=== PATIENT | male | born 1925 | race Caucasian/White ===

== ENCOUNTER → 2016-08-24 | Outpatient (CLI) | payer MEDICARE, BC ==
[~2016-08-24] MED LIST: ASPI1TAB91 PO; ASPI81 PO; CIPR250T52 PO; CIPR500T2 PO; CIPR500T4 PO; DIATRIZOATE MEGLUM/DIATRIZOATE SOD 120 ML BTL (for RAD DIAG) RECTAL ONE; FERR324T4 PO; FLUT1INH INH; IPRASOL INH; METO25 PO; METO25TA3 PO; PRIN5TAB PO; REME15TA PO; TAB-TAB; ZOCO40TA PO
--- NOTE | 2016-08-24 16:17 | RADRPT ---
EXAM DATE/TIME: 08/24/2016 14:16 [facility] COMPARISON: CHEST PA & LAT, April 28, 2016, 21:46. INDICATIONS : Fecal impaction FLUORO TIME: 1.9 minutes IMAGE COUNT: 4 CONTRAST: 1. [facility] MEDICAL HISTORY : Carcinoma, bladder. SURGICAL HISTORY : CABG. urostomy ENCOUNTER: Initial ACUITY: 1 day PAIN SCORE: 0/10 LOCATION: Bilateral abdomen FINDINGS: Preliminary film demonstrates significant stool burden seen throughout the entire colon and rectum. Under fluoroscopic guidance a Gastrografin enema was performed with free flow of contrast in the rect um and within the descending colon. Significant stool is seen throughout. The patient was unable to t olerate additional Gastrografin infusion. CONCLUSION: Therapeutic Gastrografin enema displaying significant stool throughout the colon. Ashlie Hadley MD on August 24, 2016 at 16:14 Board Certified Radiologist. This report was verified electronically.
--- NOTE | 2016-12-14 16:04 | PD.CONS ---
Consult Service Palliative Care Consult Requested By Dr. Fiore . Primary Care Physician Hieu Soto MD . Reason for Consultation a. To assist with evaluation and management of symptoms including: b. To assist medical decision maker(s) with: better understanding of current medical conditions; weighing benefits/burdens of medical treatment options; making medical treatment decisions. . HPI History of Present Illness This is an 89-year-old old male brought to the emergency department by the [facility] and placed under a Andrews act. He was found in his home in soiled diapers surrounded by and covered with feces living in horrible surroundings with his, also, elderly who has also been brought to the emergency room and placed under a Andrews act. He was found alert and cooperative involuntarily as walked to the stretcher. He complains of progressive weakness over the prior 3 months. He was attempting to bring his to the doctor but found himself too weak to make that trip. He reports that he has lost 100 pounds over the last few months. Review of the records indicate a progressive loss since his admission in 2002 from a maximum of 113 kg to a presenting weight of 54 kg. He was found to have a urinary tract infection cultured initially to the Proteus species and is currently on aztreonam pending sensitivity. Past Family Social History Coded Allergies: Sulfa (Verified Allergy, Severe, 04/28/16) SULFA Penicillin (Verified Allergy, Unknown, PT UNAWARE OF REACTION - STATES " IT MAKES ME SICK", 12/13/16) Substance Use Tobacco: Alcohol: Prescription med abuse: Illicits: Physical Exam Exam CONSTITUTIONAL/GENERAL: This is an adequately nourished patient, in no apparent distress. TUBES/LINES/DRAINS: SKIN: No jaundice, rashes, or lesions. Ecchymoses on upper extremities. No wounds seen anteriorly. Skin temperature appropriate. Not diaphoretic. HEAD: Atraumatic. Normocephalic. EYES: Pupils equal and round and reactive. Extraocular motions intact. No scleral icterus. No injection or drainage. Fundi not examined. ENT: Hearing grossly normal. Nose without bleeding or purulent drainage. Throat without visible erythema, exudates, masses, or lesions. NECK: Trachea midline. Supple, nontender. No palpable thyroid enlargement or nodularity. CARDIOVASCULAR: Regular rate and rhythm without murmurs, gallops, or rubs. No JVD. Peripheral pulses symmetric. RESPIRATORY/CHEST: Symmetric, unlabored respirations. Clear to auscultation. Breath sounds equal bilaterally. No wheezes, rales, or rhonchi. GASTROINTESTINAL: Abdomen soft, non-tender, nondistended. No hepato-splenomegaly , or palpable masses. No guarding. Bowel sounds present. GENITOURINARY: Without palpable bladder distension. Sibley catheter in place. MUSCULOSKELETAL: Extremities without clubbing, cyanosis, or edema. No joint tenderness or effusion noted. No calf tenderness. No mottling or clubbing. LYMPHATICS: No palpable cervical or supraclavicular adenopathy. NEUROLOGICAL: Awake and alert. Motor and sensory grossly within normal limits. Follows commands. Cognitively sharp. Moves all extremities. PSYCHIATRIC: No obvious anxiety/depression. no apparent hallucinations or other psychotic thought process. Patient/Family Conference Issues Discussed: * Palliative care role, purpose, approach * Additional medical, psychosocial, and spiritual history * Patients general health, functional status, and cognitive changes in the months leading up to the current hospitalization * Patient/family understanding of the current medical problems * Patient/family understanding of prognosis * Patients goals of care as best understood from advance directives and/or conversations and/or values * Current medical treatment options and benefits/burdens of those options * Likely scenarios comparing ongoing aggressive care with a transition to comfort measures only * Questions answered to the best of my ability * Palliative care contact information provided Assessment and Plan Pertinent Non-Medical Issues Psychosocial: Spiritual: Legal: Ethical issues impacting care: Thank you for the opportunity to participate in the care of Mr. Membreno. Tracy Lynn December 14, 2016 16:04
== END ==
LOC: HRAD 13:10
PROVIDERS: ATTEND Family Medicine
DX: K56.41 Fecal impaction (principal)
CPT/HCPCS: 74270; Q9963

== ENCOUNTER 2016-12-13 14:28 | Inpatient (IN) | payer MEDICARE, BC ==
[2016-12-13] VITALS (7 sets, daily range): BP systolic 91–119; BP diastolic 53–64; PULSE 52–83; RESP 16–18; TEMP 96.1–97.7; O2SAT 100
[~2016-12-13] VITALS: Ht 177.8 cm; Wt 55.6 kg
[~2016-12-13 14:28] MED LIST changes: -ASPI1TAB91 PO; -CIPR250T52 PO; -CIPR500T2 PO; -DIATRIZOATE MEGLUM/DIATRIZOATE SOD 120 ML BTL (for RAD DIAG) RECTAL ONE; -FERR324T4 PO; -FLUT1INH INH; -IPRASOL INH; -METO25TA3 PO; -REME15TA PO; -TAB-TAB
[2016-12-13] MEDS ORDERED: SODIUM CHLORIDE 0.9% FLUSH 10 ML FLUSH IVF PRN (15:30)
--- NOTE | 2016-12-13 15:37 | PD ---
HPI Chief Complaint: Respiratory Symptoms Time Seen by Provider: 15:32 Travel History International Travel<30 days: No Contact w/Intl Traveler<30days: No Traveled to known affect area: No History of Present Illness HPI 89 year old elderly male patient who presents to the emergency department via EMS under Andrews act. Apparently, the patient's residence is in horrible condition. The patient was found the living room with trash and feces all around 10. According to the officer, did not appear that he has eaten removed in some time. Patient was wearing nothing that is soiled diaper at the time. Apparently, he has nobody checking up on him. The patient is alert and answers questions appropriately. He states that he has been getting weaker over the past 3 months. He states that he needed his to go to the doctor today, but he was too weak to take her. He denies any head injury. No fevers or chills. No loss of consciousness. He denies any chest pain. He does report chronic shortness of breath. Apparently he is on 2 L nasal cannula at home. He is a poor historian. He reports taken metoprolol and aspirin. He reports history of CABG. The patient denies any abdominal pain. No nausea, vomiting, diarrhea. He does have a nephrostomy tube. He states this was due to bladder cancer back in 2000. He denies any current history of cancer. He states that he has lost 100 pounds over the past few months. PFSH Past Medical History Hx Anticoagulant Therapy: Yes (162 ASA ) Cancer: Yes Cardiovascular Problems: Yes (CABG X4) High Cholesterol: Yes Coronary Artery Disease: Yes Diabetes: No Diminished Hearing: No Hypertension: Yes Immunizations Current: Yes ?: Not LMP: 0 Past Surgical History Coronary Artery Bypass Graft: Yes (TRIPLE BYPASS IN 2002) Hysterectomy: Yes (BYPASS, HTN, CHOL) Other Surgery: Yes (BLADDER REMOVED DUE TO CA IN 2000 - NO CHEMO OR RADIATION AFTER) Social History Alcohol Use: No Tobacco Use: No (FORMER) Substance Use: No Allergies-Medications (Allergen,Severity, Reaction): Coded Allergies: Sulfa (Verified Allergy, Severe, 04/28/16) SULFA Penicillin (Verified Allergy, Unknown, PT UNAWARE OF REACTION - STATES " IT MAKES ME SICK", 12/13/16) Reported Meds & Prescriptions Reported Meds & Active Scripts Active Reported Zocor (Simvastatin) 40 Mg Tab 40 Mg PO HS Metoprolol Tartrate 25 Mg Tab 25 Mg PO BID Aspirin Adult Low Strength (Aspirin) 81 Mg Tabdr 162 Mg PO DAILY Review of Systems Except as stated in HPI: all other systems reviewed are Neg Physical Exam Narrative GENERAL: Well-nourished, well-developed elderly male patient, afebrile. SKIN: Focused skin assessment warm/dry. HEAD: Normocephalic. EYES: No scleral icterus. No injection or drainage. NECK: Supple, trachea midline. No JVD or lymphadenopathy. CARDIOVASCULAR: Regular rate and rhythm without murmurs, gallops, or rubs. Patient does have cyanotic fingertips are cool to touch. He states this is chronic for him. Bilateral radial and pedal pulses 2+. RESPIRATORY: Breath sounds equal bilaterally. No accessory muscle use. GASTROINTESTINAL: Abdomen soft, non-tender, nondistended. Patient has nephrostomy tube to lower abdomen. MUSCULOSKELETAL: No cyanosis, or edema. BACK: Nontender without obvious deformity. No CVA tenderness. Data Data Last Documented VS Vital Signs Date Time Temp Pulse Resp B/P Pulse Ox O2 Delivery O2 Flow Rate FiO2 12/13/16 18:15 61 18 91/53 100 Nasal Cannula 2 12/13/16 15:20 96.9 Orders Electrocardiogram (12/13/16 15:29) Comprehensive Metabolic Panel (12/13/16 15:29) Creatine Kinase (Cpk) (12/13/16 15:29) Troponin I (12/13/16 15:29) Urinalysis - C+S If Indicated (12/13/16 15:29) Chest, Single Ap (12/13/16 15:29) Blood Glucose (12/13/16 15:29) Ecg Monitoring (12/13/16 15:29) Iv Access Insert/Monitor (12/13/16 15:29) Oximetry (12/13/16 15:29) Sodium Chloride 0.9% Flush (Ns Flush) (12/13/16 15:30) Complete Blood Count With Diff (12/13/16 15:29) Magnesium (Mg) (12/13/16 15:29) Blood Culture (12/13/16 15:29) Lactic Acid Sepsis Protocol (12/13/16 15:29) Sodium Chlorid 0.9% 500 Ml Inj (Ns 500 M (12/13/16 15:45) Dextrose 50% In Mango (Vial) Inj (D50w (Vi (12/13/16 16:15) Diet Heart Healthy (12/13/16 Lunch) Urine Culture (12/13/16 16:30) CKMB (12/13/16 16:00) CKMB% (12/13/16 16:00) Aztreonam Inj (Azactam Inj) (12/13/16 17:30) Sodium Chlorid 0.9% 500 Ml Inj (Ns 500 M (12/13/16 17:30) Aspirin (Aspirin) (12/13/16 17:45) Sodium Chlorid 0.9% 500 Ml Inj (Ns 500 M (12/13/16 18:30) Admit Order (Ed Use Only) (12/13/16 18:18) Labs Laboratory Tests Test 12/13/16 12/13/16 12/13/16 16:00 16:30 16:50 White Blood Count 9.3 TH/MM3 Red Blood Count 3.11 MIL/MM3 Hemoglobin 10.2 GM/DL Hematocrit 30.9 % Mean Corpuscular Volume 99.4 FL Mean Corpuscular Hemoglobin 32.8 PG Mean Corpuscular Hemoglobin 33.0 % Concent Red Cell Distribution Width 15.1 % Platelet Count 238 TH/MM3 Mean Platelet Volume 10.6 FL Neutrophils (%) (Auto) 93.6 % Lymphocytes (%) (Auto) 2.5 % Monocytes (%) (Auto) 3.7 % Eosinophils (%) (Auto) 0.0 % Basophils (%) (Auto) 0.2 % Neutrophils # (Auto) 8.7 TH/MM3 Lymphocytes # (Auto) 0.2 TH/MM3 Monocytes # (Auto) 0.4 TH/MM3 Eosinophils # (Auto) 0.0 TH/MM3 Basophils # (Auto) 0.0 TH/MM3 CBC Comment DIFF FINAL Differential Comment Sodium Level 143 MEQ/L Potassium Level 4.0 MEQ/L Chloride Level 104 MEQ/L Carbon Dioxide Level 31.7 MEQ/L Anion Gap 7 MEQ/L Blood Urea Nitrogen 68 MG/DL Creatinine 1.75 MG/DL Estimat Glomerular Filtration 37 ML/MIN Rate Random Glucose 68 MG/DL Calcium Level 9.6 MG/DL Magnesium Level 2.5 MG/DL Total Bilirubin 0.6 MG/DL Aspartate Amino Transf 35 U/L (AST/SGOT) Alanine Aminotransferase 18 U/L (ALT/SGPT) Alkaline Phosphatase 78 U/L Total Creatine Kinase 325 U/L Creatine Kinase MB 9.0 NG/ML Creatine Kinase MB % 2.8 % Troponin I 0.13 NG/ML Total Protein 7.6 GM/DL Albumin 2.4 GM/DL Urine Color LIGHT-RED Urine Turbidity CLOUDY Urine pH 8.0 Urine Specific [place] 1.016 Urine Protein 100 mg/dL Urine Glucose (UA) NEG mg/dL Urine Ketones NEG mg/dL Urine Occult Blood MOD Urine Nitrite NEG Urine Bilirubin NEG Urine Urobilinogen LESS THAN 2.0 MG/DL Urine Leukocyte Esterase LARGE Urine RBC 139 /hpf Urine WBC /hpf Urine Calcium Oxalate Crystals FEW /hpf Urine Bacteria OCC /hpf Microscopic Urinalysis Comment CATH-CULTURE IND Lactic Acid Level 1.3 mmol/L MDM Medical Decision Making Medical Screen Exam Complete: Yes Emergency Medical Condition: Yes Medical Record Reviewed: Yes Interpretation(s) chest x-ray - CONCLUSION: Hyperinflation suggesting COPD. Chronic changes involving the lungs and pleura are stable. No acute infiltrate or effusion. Differential Diagnosis Electrolyte abnormality versus dehydration versus ACS versus pneumonia versus sepsis versus UTI Narrative Course 89-year-old male presents to the emergency department for generalized weakness, inability to care for self. He is placed under a Andrews act. Apparently, he is found in his living room with trash and feces all around him. The patient does report generalized weakness. He reports chronic shortness of breath, but no other complaints. EKG, CBC, CMP, CK, troponin, magnesium, UA, lactic acid, blood cultures 2 are ordered and pending. Chest x-ray is ordered and pending. Patient is given normal saline 500 mL bolus. Possible hypoglycemia, blood glucose was 27 from IV stick but possible dilution , 14 from finger stick (but fingers are chronically cyanotic, 61 from ear). Patient is given amp of D50 and tray is ordered. EKG shows sinus rhythm, heart rate 73, no acute ST changes. CBC shows normal WBC of 9.3, hemoglobin 10.2, hematocrit 30.9. CMP shows elevated BUN and creatinine of 60/1.75. CK is 325. Troponin is 0.13. Magnesium is 2.5. Lactic Acid is 1.3. UA shows moderate occult blood, large leukocyte esterase, innumerable WBC, 139 RBC. Chest x-ray shows hyperinflation suggesting COPD. Chronic changes involving the lungs and pleura are stable. No acute infiltrate or effusion. Patient is given Azactam 1 g IV for UTI. Another 500 normal saline IV bolus is ordered and pending. Patient is admitted to Dr. Pop [facility]. Sepsis Criteria SIRS Criteria (2 or more): Temp > 100.9 or < 96.8 Diagnosis Primary Impression: UTI (urinary tract infection) Qualified Code: T83.512A - Urinary tract infection associated with nephrostomy catheter, initial encounter Additional Impression: Generalized weakness Admitting Information Admitting Physician Requests: Admit Babs Lara December 13, 2016 15:36
[2016-12-13] MEDS ORDERED: SODIUM CHLORID 0.9% 500 ML INJ 500 ML IV ONE ×3 (15:45→18:30)
--- NOTE | 2016-12-13 16:08 | RADRPT ---
EXAM DATE/TIME: 12/13/2016 15:34 [facility] COMPARISON: CHEST PA & LAT, April 28, 2016, 21:46. INDICATIONS : General weakness for 3 months. MEDICAL HISTORY : Hypertension. Coronary artery disease. SURGICAL HISTORY : CABG. ENCOUNTER: Initial ACUITY: 3 months PAIN SCORE: 0/10 LOCATION: Bilateral chest FINDINGS: A single portable frontal view of the chest shows hyperinflation. Chronic interstitial changes are no al involving lobes bilaterally. These are stable. Chronic pleural thickening is noted involving the apices. This is stable. The heart is at the upper limits of normal in terms of size. Pulmonary vascul ature unremarkable. Calcified pleural plaque involving the left upper chest is unchanged. No effusion s. Median sternotomy wires. CONCLUSION: Hyperinflation suggesting COPD. Chronic changes involving the lungs and pleura are stable. No acute i nfiltrate or effusion. Brandon Frost Jr., MD on December 13, 2016 at 16:05 Board Certified Radiologist. This report was verified electronically.
[2016-12-13] MEDS ORDERED: DEXTROSE 50% IN WATER 50 ML VIAL(D50) IV PUSH ONE (16:15)
[2016-12-13 16:42] LABS: AUTOMATED NEUTROPHIL # 8.7 TH/MM3 (1.8-7.7); BASOPHIL % 0.2 % (0.0-2.0); HEMATOCRIT 30.9 % (39.0-51.0); HEMO FLAGS DIFF FINAL; LYMPH % 2.5 % (9.0-44.0); LYMPHOCYTE # 0.2 TH/MM3 (1.0-4.8); MEAN CELL VOLUME 99.4 FL (80.0-100.0); MEAN CORPUSCULAR HEMOGLOBIN 32.8 PG (27.0-34.0); MONO % 3.7 % (0.0-8.0); NEUT % 93.6 % (16.0-70.0); PLATELET COUNT 238 TH/MM3 (150-450); RED BLOOD COUNT 3.11 MIL/MM3 (4.50-5.90); RED CELL DISTRIBUTION WIDTH 15.1 % (11.6-17.2); WHITE BLOOD COUNT 9.3 TH/MM3 (4.0-11.0)
[2016-12-13 17:00] LABS: BACTERIA, URINE OCC /hpf; BLOOD, URINE MOD (NEG); CALCIUM OXALATE CRYSTALS,URINE FEW /hpf; COMMENT (UR) CATH-CULTURE IND; CULTURE IF INDICATED CATH CULTURE IND; GLUCOSE,URINE NEG (NEG); KETONE, URINE NEG (NEG); NITRITE,URINE NEG (NEG); URINE COLOR LIGHT-RED (YELLW/STRAW)
[2016-12-13 17:12] LABS: ALT (GPT) 18 U/L (12-78); ANION GAP 7 MEQ/L (5-15); AST (GOT) 35 U/L (15-37); BICARBONATE 31.7 MEQ/L (21.0-32.0); BLOOD UREA NITROGEN 68 MG/DL (7-18); CHLORIDE 104 MEQ/L (98-107); GLOMERULAR FILTRATION RATE 37 ML/MIN (>89); MAGNESIUM 2.5 MG/DL (1.5-2.5); SODIUM (NA) 143 MEQ/L (136-145)
[2016-12-13 17:15] LABS: ALKALINE PHOSPHATASE 78 U/L (45-117); CREATINE KINASE 325 U/L (39-308); TOTAL BILIRUBIN ADULT 0.6 MG/DL (0.2-1.0)
[2016-12-13] MEDS ORDERED: AZTREONAM INJ 1,000 MG in SODIUM CHLORIDE 0.9% INJ 100 ML IV ONE (17:30)
[2016-12-13] MEDS ORDERED: METO25TA3 PO (17:39)
[2016-12-13] MEDS ORDERED: ZOCO40TA PO (17:39)
[2016-12-13] MEDS ORDERED: ASPI1TAB91 PO (17:39)
[2016-12-13] MEDS ORDERED: ASPIRIN 325 MG TAB PO ONE (17:45)
[2016-12-13] MEDS ORDERED: ONDANSETRON HCL 4 MG/2 ML VIAL IVP PRN (18:45)
[2016-12-13] MEDS ORDERED: NALOXONE HCL 0.4 MG/ML AMP IV PRN (18:45)
--- NOTE | 2016-12-13 18:46 | PD ---
Physical Exam Narrative GENERAL: Cachectic, well-developed patient. SKIN: cool and dry. HEAD: Normocephalic EYES: No injection or drainage. ENT: No nasal drainage noted. NECK: Supple, trachea midline. CARDIOVASCULAR: Regular rate and rhythm RESPIRATORY: No increased effort. No accessory muscle use. GASTROINTESTINAL: Abdomen soft, non-tender, nondistended. NEUROLOGICAL: Awake. Moves all extremities. Normal speech. Data Data Last Documented VS Vital Signs Date Time Temp Pulse Resp B/P Pulse Ox O2 Delivery O2 Flow Rate FiO2 12/13/16 18:15 96.1 61 18 91/53 100 Nasal Cannula 2 Orders Electrocardiogram (12/13/16 15:29) Comprehensive Metabolic Panel (12/13/16 15:29) Creatine Kinase (Cpk) (12/13/16 15:29) Troponin I (12/13/16 15:29) Urinalysis - C+S If Indicated (12/13/16 15:29) Chest, Single Ap (12/13/16 15:29) Blood Glucose (12/13/16 15:29) Ecg Monitoring (12/13/16:29) Iv Access Insert/Monitor (12/13/16 15:29) Oximetry (12/13/16 15:29) Sodium Chloride 0.9% Flush (Ns Flush) (12/13/16 15:30) Complete Blood Count With Diff (12/13/16 15:29) Magnesium (Mg) (12/13/16 15:29) Blood Culture (12/13/16 15:29) Lactic Acid Sepsis Protocol (12/13/16 15:29) Sodium Chlorid 0.9% 500 Ml Inj (Ns 500 M (12/13/16 15:45) Dextrose 50% In Mango (Vial) Inj (D50w (Vi (12/13/16 16:15) Diet Heart Healthy (12/13/16 Lunch) Urine Culture (12/13/16 16:30) CKMB (12/13/16 16:00) CKMB% (12/13/16 16:00) Aztreonam Inj (Azactam Inj) (12/13/16 17:30) Sodium Chlorid 0.9% 500 Ml Inj (Ns 500 M (12/13/16 17:30) Aspirin (Aspirin) (12/13/16 17:45) Sodium Chlorid 0.9% 500 Ml Inj (Ns 500 M (12/13/16 18:30) Admit Order (Ed Use Only) (12/13/16 18:18) Labs Laboratory Tests Test 12/13/16 12/13/16 12/13/16 16:00 16:30 16:50 White Blood Count 9.3 TH/MM3 Red Blood Count 3.11 MIL/MM3 Hemoglobin 10.2 GM/DL Hematocrit 30.9 % Mean Corpuscular Volume 99.4 FL Mean Corpuscular Hemoglobin 32.8 PG Mean Corpuscular Hemoglobin 33.0 % Concent Red Cell Distribution Width 15.1 % Platelet Count 238 TH/MM3 Mean Platelet Volume 10.6 FL Neutrophils (%) (Auto) 93.6 % Lymphocytes (%) (Auto) 2.5 % Monocytes (%) (Auto) 3.7 % Eosinophils (%) (Auto) 0.0 % Basophils (%) (Auto) 0.2 % Neutrophils # (Auto) 8.7 TH/MM3 Lymphocytes # (Auto) 0.2 TH/MM3 Monocytes # (Auto) 0.4 TH/MM3 Eosinophils # (Auto) 0.0 TH/MM3 Basophils # (Auto) 0.0 TH/MM3 CBC Comment DIFF FINAL Differential Comment Sodium Level 143 MEQ/L Potassium Level 4.0 MEQ/L Chloride Level 104 MEQ/L Carbon Dioxide Level 31.7 MEQ/L Anion Gap 7 MEQ/L Blood Urea Nitrogen 68 MG/DL Creatinine 1.75 MG/DL Estimat Glomerular Filtration 37 ML/MIN Rate Random Glucose 68 MG/DL Calcium Level 9.6 MG/DL Magnesium Level 2.5 MG/DL Total Bilirubin 0.6 MG/DL Aspartate Amino Transf 35 U/L (AST/SGOT) Alanine Aminotransferase 18 U/L (ALT/SGPT) Alkaline Phosphatase 78 U/L Total Creatine Kinase 325 U/L Creatine Kinase MB 9.0 NG/ML Creatine Kinase MB % 2.8 % Troponin I 0.13 NG/ML Total Protein 7.6 GM/DL Albumin 2.4 GM/DL Urine Color LIGHT-RED Urine Turbidity CLOUDY Urine pH 8.0 Urine Specific [place] 1.016 Urine Protein 100 mg/dL Urine Glucose (UA) NEG mg/dL Urine Ketones NEG mg/dL Urine Occult Blood MOD Urine Nitrite NEG Urine Bilirubin NEG Urine Urobilinogen LESS THAN 2.0 MG/DL Urine Leukocyte Esterase LARGE Urine RBC 139 /hpf Urine WBC /hpf Urine Calcium Oxalate Crystals FEW /hpf Urine Bacteria OCC /hpf Microscopic Urinalysis Comment CATH-CULTURE IND Lactic Acid Level 1.3 mmol/L MDM Supervised Visit with FARAZ: Yes Interpretation(s) EKG is sinus rhythm at 75 with wandering baseline V2 no STEMI criteria CBC & BMP Diagram 12/13/16 16:00 Last 24 hours Impressions Chest X-Ray 12/13/16 1529 Signed Impressions: Service Date/Time: December 15:34 - CONCLUSION: Hyperinflation suggesting COPD. Chronic changes involving the lungs and pleura are stable. No acute infiltrate or effusion. Brandon Frost Jr., MD Narrative Course I, Dr. merino, have reviewed the advance practice practitioner's documentation and am in agreement, met with the patient face to face, made the diagnosis, and the medical decision making was done by me. *My assessment and Findings: 89-year-old male presents under Andrews act with unable to care for self. Found covered in urine and feces. Patient is hypothermic and hypoglycemic. Accu-Chek from his finger was 17 but on his ear was in the 40s. He was given an amp of D50 and a meal tray and this has improved. Workup shows concurrent urinary tract infection. Given his penicillin allergy he was given azactam. His lactate is within normal limits. He shows signs of dehydration and will be given IV fluid hydration. His lactate is normal. Patient with elevated troponin with EKG without STEMI criteria. Given aspirin this can be elevated given his renal dysfunction and will need to be trended, no chest pain Sepsis Criteria SIRS Criteria (2 or more): Temp > 100.9 or < 96.8 Sepsis Criteria (SIRS+source): Infect source susp/known Physician Communication Physician Communication dr cash agrees to admit Diagnosis Primary Impression: UTI (urinary tract infection) Qualified Code: T83.512A - Urinary tract infection associated with nephrostomy catheter, initial encounter Additional Impressions: Generalized weakness Hypothermia Qualified Code: T68.XXXA - Hypothermia, initial encounter Hypoglycemia Acute renal failure Qualified Code: N17.9 - Acute renal failure, unspecified acute renal failure type Elevated troponin I level Admitting Information Admitting Physician Requests: Admit Dominga Merino MD December 13, 2016 18:46
--- NOTE | 2016-12-13 19:48 | HHI.HP ---
[facility] Hieu Soto MD Admission Diagnosis UTI, generalized weakness Diagnoses: (1) Encephalopathy Diagnosis: Principal (2) UTI (urinary tract infection) Diagnosis: Principal (3) Hypothermia Diagnosis: Principal (4) Hypoglycemia Diagnosis: Principal (5) Elevated troponin I level Diagnosis: Principal (6) COPD (chronic obstructive pulmonary disease) Diagnosis: Principal (7) Total self-care deficit Diagnosis: Principal Travel History International Travel<30 Days: No Contact w/Intl Traveler <30 Da: No Traveled to Known Affected Are: No History of Present Illness This is an 89-year-old male with a PMH of HTN, CAD and Bladder CA who was brought to the ER by EMS under Andrews Act for altered mental status and inability to care for self. Per report, both patient and found in their apparent confused, in horrid conditions, wearing only a diaper and covered in feces. currently under Andrews Act as well. Upon EMS arrival, pt noted to be hypothermic w/ Temp 96.1 and hypoglycemic w/ BS 14, s/p D50, now improved. Repeat Temp 97.7, BS 68. Pt currently awake and alert, answering questions. Reports he needed to take to doctor, however was too weak so he called Taxi. hazmat tanker driver arrived at their home and called EMS after finding them in horrid conditions. WBC normal, elevated neutrophil count. Creatinine 1.75, previously 1.48 on 06/21/16. CPK 325. Troponin 0.13. EKG with no acute ST changes. UA positive for UTI. CXR with hyperinflation suggesting COPD, no acute findings. S/p Azactam in ER in addition to Blood/Urine cultures. Review of Systems Except as stated in HPI: all other systems reviewed are Neg ROS: 14 point review of systems otherwise negative. Past Family Social History Past Medical History PMH: HTN, CAD and Bladder CA Past Surgical History PAST SURGICAL HISTORY: CABG, Cystectomy Allergies: Coded Allergies: Sulfa (Verified Allergy, Severe, 04/28/16) SULFA Penicillin (Verified Allergy, Unknown, PT UNAWARE OF REACTION - STATES " IT MAKES ME SICK", 5/4/17) Family History PAST FAMILY HISTORY: Reviewed. No h/o DM or CAD Social History PAST SOCIAL HISTORY: Negative for alcohol, tobacco or drugs. Physical Exam Vital Signs Vital Signs Date Time Temp Pulse Resp B/P Pulse Ox O2 Delivery O2 Flow Rate FiO2 12/13/16 19:28 97.7 75 18 103/58 100 Nasal Cannula 2 12/13/16 18:30 96.1 12/13/16 18:15 96.1 61 18 91/53 100 Nasal Cannula 2 12/13/16 15:25 80 18 100 Nasal Cannula 2 12/13/16 15:20 96.9 83 18 119/56 100 Nasal Cannula 2 12/13/16 14:46 52 17 117/64 Physical Exam PE: GENERAL: Elderly white male in no acute distress. HEENT: PERRLA, EOMI. No scleral icterus or conjunctival pallor. No lid lag or facial droop. CARDIOVASCULAR: Regular rate and rhythm. No obvious murmurs to auscultation. No chest tenderness to palpation. RESPIRATORY: No obvious rhonchi or wheezing. Clear to auscultation. Breath sounds equal bilaterally. GASTROINTESTINAL: Abdomen soft, non-tender, nondistended. BS normal. MUSCULOSKELETAL: Extremities without clubbing, cyanosis, or edema. No obvious deformities. NEUROLOGICAL: Awake, alert and oriented x4. No focal neurologic deficits. Moving both upper and lower extremities spontaneously. Laboratory Laboratory Tests Test 12/13/16 12/13/16 12/13/16 16:00 16:30 16:50 White Blood Count 9.3 Red Blood Count 3.11 Hemoglobin 10.2 Hematocrit 30.9 Mean Corpuscular Volume 99.4 Mean Corpuscular Hemoglobin 32.8 Mean Corpuscular Hemoglobin 33.0 Concent Red Cell Distribution Width 15.1 Platelet Count 238 Mean Platelet Volume 10.6 Neutrophils (%) (Auto) 93.6 Lymphocytes (%) (Auto) 2.5 Monocytes (%) (Auto) 3.7 Eosinophils (%) (Auto) 0.0 Basophils (%) (Auto) 0.2 Neutrophils # (Auto) 8.7 Lymphocytes # (Auto) 0.2 Monocytes # (Auto) 0.4 Eosinophils # (Auto) 0.0 Basophils # (Auto) 0.0 CBC Comment DIFF FINAL Differential Comment Sodium Level 143 Potassium Level 4.0 Chloride Level 104 Carbon Dioxide Level 31.7 Anion Gap 7 Blood Urea Nitrogen 68 Creatinine 1.75 Estimat Glomerular Filtration 37 Rate Random Glucose 68 Calcium Level 9.6 Magnesium Level 2.5 Total Bilirubin 0.6 Aspartate Amino Transf 35 (AST/SGOT) Alanine Aminotransferase 18 (ALT/SGPT) Alkaline Phosphatase 78 Total Creatine Kinase 325 Creatine Kinase MB 9.0 Creatine Kinase MB % 2.8 Troponin I 0.13 Total Protein 7.6 Albumin 2.4 Urine Color LIGHT-RED Urine Turbidity CLOUDY Urine pH 8.0 Urine Specific [place] 1.016 Urine Protein 100 Urine Glucose (UA) NEG Urine Ketones NEG Urine Occult Blood MOD Urine Nitrite NEG Urine Bilirubin NEG Urine Urobilinogen LESS THAN 2.0 Urine Leukocyte Esterase LARGE Urine RBC 139 Urine WBC Urine Calcium Oxalate Crystals FEW Urine Bacteria OCC Microscopic Urinalysis Comment CATH-CULTURE IND Lactic Acid Level 1.3 Date/Time Procedure Status Source Growth 12/13/16 16:30 Urine Culture Received Urine Catheterized Urine Pending 12/13/16 16:00 Aerobic Blood Culture Received Blood Peripheral Pending 12/13/16 16:00 Anaerobic Blood Culture Received Blood Peripheral Pending Result Diagram: 12/13/16 1600 12/13/16 1600 Assessment and Plan Problem List: (1) Encephalopathy ICD Code: G93.40 Status: Acute (2) UTI (urinary tract infection) ICD Code: N39.0 Status: Acute (3) Hypothermia ICD Code: T68.XXXA Status: Acute (4) Hypoglycemia ICD Code: E16.2 Status: Acute (5) Elevated troponin I level ICD Code: R74.8 Status: Acute (6) COPD (chronic obstructive pulmonary disease) ICD Code: J44.9 Status: Acute (7) Total self-care deficit ICD Code: R41.89 Status: Acute Assessment and Plan A/P: 1. Encephalopathy: Resolved. Likely secondary to acute infection compounded by hypoglycemia and hypothermia, all currently resolved. Pt awake, alert and answering questions appropriately. CT Head w/ no acute findings, images reviewed by me. 2. Hypothermia: Temp 96.1, s/p bear hugger, currently Temp 97.7. No signs of sepsis. Continue to monitor. 3. Hypoglycemia: BS 18, however repeat 61, s/p D50, BS currently 68. Will monitor closely. 4. Elevated Trop: Trop 0.13, EKG w/ no acute changes, no c/o chest pain. Will check serial enzymes for trend. Continue home ASA. Hold B-jameel in light of borderline BP. 5. COPD: Chronic Respiratory Failure. Stable. CXR w/ COPD, no acute findings , images reviewed by me. José Luis lopezn. 6. Total Self Care Deficit: Found by EMS to be living in horrid conditions w/ , covered in feces, unable to care for self, currently under Andrews Act. Consult Psych. 7. DVT Prophylaxis: SCD/Teds. 8. Social work for d/c planning as needed. 9. Case discussed at length w/ ER physician. Physician Certification 2 Midnight Certification Type: Admission for Inpatient Services Order for Inpatient Services The services are ordered in accordance with Medicare regulations or non- Medicare payer requirements, as applicable. In the case of services not specified as inpatient-only, they are appropriately provided as inpatient services in accordance with the 2-midnight benchmark. Estimated LOS (days): 2 days is the estimated time the patient will need to remain in the hospital, assuming treatment plan goals are met and no additional complications. Post-Hospital Plan: Not yet determined Problem Qualifiers (1) UTI (urinary tract infection): Qualified Code: T83.512A - Urinary tract infection associated with nephrostomy catheter, initial encounter (2) Hypothermia: Qualified Code: T68.XXXA - Hypothermia, initial encounter Felicitas Burger MD December 13, 2016 19:48
[2016-12-13] MEDS: SODIUM CHLOR 0.9% 1000 ML INJ 1,000 ML IV SCH (21:00)
[2016-12-14] VITALS (8 sets, daily range): BP systolic 96–112; BP diastolic 51–59; PULSE 64–76; RESP 16–20; TEMP 94–98.2; O2SAT 94–99
[2016-12-14] MEDS: AZTREONAM INJ 1,000 MG in SODIUM CHLORIDE 0.9% INJ 100 ML IV SCH ×3 (02:49→17:30)
[2016-12-14 03:59] LABS: AUTOMATED NEUTROPHIL # 6.5 TH/MM3 (1.8-7.7); BASOPHIL % 0.3 % (0.0-2.0); EOSINOPHIL # 0.1 TH/MM3 (0-0.4); EOSINOPHIL % 1.3 % (0.0-4.0); HEMATOCRIT 26.7 % (39.0-51.0); HEMO FLAGS DIFF FINAL; LYMPH % 5.7 % (9.0-44.0); LYMPHOCYTE # 0.4 TH/MM3 (1.0-4.8); MEAN CELL VOLUME 98.6 FL (80.0-100.0); MEAN CORPUSCULAR HEMOGLOBIN 33.2 PG (27.0-34.0); MEAN CORPUSCULAR HGB CONC 33.7 % (32.0-36.0); MONO % 5.1 % (0.0-8.0); NEUT % 87.6 % (16.0-70.0); PLATELET COUNT 215 TH/MM3 (150-450); WHITE BLOOD COUNT 7.5 TH/MM3 (4.0-11.0)
[2016-12-14 04:37] LABS: ALKALINE PHOSPHATASE 71 U/L (45-117); ALT (GPT) 20 U/L (12-78); ANION GAP 5 MEQ/L (5-15); AST (GOT) 35 U/L (15-37); BICARBONATE 30.5 MEQ/L (21.0-32.0); BLOOD UREA NITROGEN 66 MG/DL (7-18); CHLORIDE 108 MEQ/L (98-107); CREATINE KINASE 189 U/L (39-308); GLOMERULAR FILTRATION RATE 44 ML/MIN (>89); POTASSIUM 4.2 MEQ/L (3.5-5.1); SODIUM (NA) 143 MEQ/L (136-145); TOTAL BILIRUBIN ADULT 0.3 MG/DL (0.2-1.0)
[2016-12-14] MEDS: ASPIRIN EC 81 MG TABEC PO SCH (07:53)
--- NOTE | 2016-12-14 08:22 | HHI.PR ---
Subjective Remarks resting comfortably with no distress. denies pain. but says that ' he's weak. ' awake, alert and oriented. blood sugar stable over night. Objective Vitals Vital Signs Date Time Temp Pulse Resp B/P Pulse Ox O2 Delivery O2 Flow Rate FiO2 12/14/16 04:25 96.6 74 16 102/59 98 12/14/16 00:20 96.8 72 16 98/53 99 12/13/16 20:50 100 12/13/16 20:50 97.0 73 16 119/57 12/13/16 20:00 100 Nasal Cannula 1.50 12/13/16 19:28 97.7 75 18 103/58 100 Nasal Cannula 2 12/13/16 18:30 96.1 12/13/16 18:15 96.1 61 18 91/53 100 Nasal Cannula 2 12/13/16 15:25 80 18 100 Nasal Cannula 2 12/13/16 15:20 96.9 83 18 119/56 100 Nasal Cannula 2 12/13/16 14:46 52 17 117/64 I/O 12/13/16 12/13/16 12/13/16 12/14/16 12/14/16 12/14/16 07:00 15:00 23:00 07:00 15:00 23:00 Intake Total 120 ml 120 ml Output Total 100 ml 500 ml Balance 20 ml -380 ml Intake Oral 120 ml 120 ml Output Urine Total 100 ml 500 ml # Voids 0 # Bowel Movements 0 0 Result Diagram: 12/14/16 0348 12/14/16 0348 Imaging Last Impressions Chest X-Ray 12/13/16 1529 Signed Impressions: Service Date/Time: December 15:34 - CONCLUSION: Hyperinflation suggesting COPD. Chronic changes involving the lungs and pleura are stable. No acute infiltrate or effusion. Brandon Frost Jr., MD Objective Remarks GENERAL: elderly male, in no apparent distress. CARDIOVASCULAR: Regular rate and regular rhythm without murmurs, gallops, or rubs. RESPIRATORY: Clear to auscultation. Breath sounds equal bilaterally. No wheezes , rales, or rhonchi. GASTROINTESTINAL: Abdomen soft, non-tender, nondistended. Normal, active bowel sounds MUSCULOSKELETAL: Extremities without clubbing, cyanosis, or edema. NEURO: Alert & Oriented x4 to person, place, time, situation. Moves all ext x4 Procedures none Medications and IVs Current Medications Sodium Chloride 2 ml 2 ml UNSCH PRN IVF FLUSH AFTER USING IV ACCESS; Start 12/13 at 15:30 Sodium Chloride (NS 500 ml Inj) 500 ml @ 500 mls/hr BOLUS ONCE IV Last administered on 12/13/16 15:55; Start 12/13/16 at 15:45; Stop 12/13/16 at 16:44; Status DC Dextrose 50 ml 50 ml NOW ONCE IV PUSH Last administered on 12/13/16 16:18; Start 12/13/16 at 16:15; Stop 12/13/16 at 16:16; Status DC Aztreonam 1000 mg/ Sodium Chloride 100 ml @ 200 mls/hr ONCE ONCE IV Last administered on 12/13/16 18:40; Start 12/13/16 at 17:30; Stop 12/13/16 at 17:59; Status DC Sodium Chloride (NS 500 ml Inj) 500 ml @ 500 mls/hr BOLUS ONCE IV Last administered on 12/13/16 18:41; Start 12/13/16 at 17:30; Stop 12/13/16 at 18:29; Status DC Aspirin 325 mg 325 mg ONCE ONCE PO Last administered on 12/13/16 18:39; Start 12/13/16 at 17:45; Stop 12/13/16 at 17:46; Status DC Sodium Chloride 500 ml @ 500 mls/hr BOLUS ONCE IV Last administered on 19:33; Start 12/13/16 at 18:30; Stop 12/13/16 at 19:29; Status DC Sodium Chloride (NS 1000 ml Inj) 1,000 ml @ 70 mls/hr [id number] IV Last administered on 12/13/16 21:00; Start 12/13/16 at 19:00 Ondansetron HCl (Zofran Inj) 4 mg Q6H PRN IVP NAUSEA OR VOMITING; Start at 18:45 Naloxone HCl 0.4 mg 0.4 mg UNSCH PRN IV SEE LABEL COMMENTS; Start 12/13/16 at 18 :45 Aztreonam/Sodium Chloride (Azactam Inj/NS Inj) 100 ml @ 200 mls/hr Q8H IV Last administered on 12/14/16 02:49; Start 12/14/16 at 02:00 Aspirin (Ecotrin Ec) 162 mg DAILY PO Last administered on 12/14/16 07:53; Start 12/14/16 at 09:00 A/P Assessment and Plan 1. Encephalopathy: Resolved. Likely secondary to acute infection compounded by hypoglycemia and hypothermia, all currently resolved. Pt awake, alert and answering questions appropriately. continue IV Abx- will deescalate the antibiotic regimen soon when the cultures are resulted. 2. Hypothermia: Temp 96.1, s/p bear hugger, now resolved. No signs of sepsis. Continue to monitor. 3. Hypoglycemia: BS 18, has resolved. Will monitor closely. 4. Elevated Trop: Trop 0.13, EKG w/ no acute changes, no c/o chest pain. trend stable. Continue home ASA. Hold B-jameel in light of borderline BP. 5. COPD: Chronic Respiratory Failure. Stable. CXR w/ COPD, no acute findings. DuoNeb prn. 6. Total Self Care Deficit: Found by EMS to be living in horrid conditions w/ , covered in feces, unable to care for self, currently under Andrews Act. Consulted Psych. 7. DVT Prophylaxis: SCD/Teds. consulted case management and PT. Corby Fiore MD December 14, 2016 08:21
--- NOTE | 2016-12-14 15:41 | EKG ---
Date Performed: 12/13/2016 Time Performed: 15:52:39 PTAGE: 89 years EKG: Sinus rhythm MARKED LEFT AXIS DEVIATION MODERATE INTRAVENTRICULAR CONDUCTION DELAY NONSPECIFIC T-WAVE ABNORMALITY ABNORMAL ECG PREVIOUS TRACING : 04/28/2016 21.52 DOCTOR: Addy Ugalde Interpretating Date/Time 12/14/2016 15:35:03
--- NOTE | 2016-12-14 16:57 | MB ---
cc: [facility] DATE OF CONSULTATION: 12/14/2016 PHYSICAL REQUESTING CONSULTATION: Dr. Pop. REASON FOR CONSULTATION: Andrews Act HISTORY OF PRESENT ILLNESS: Mr. Membreno is an 89 year-old male with no known past psychiatric history who presents under a Andrews Act along with his from their home. Andrews ACT is by [employer] alleges that they were living in deplorable conditions and that their home was littered with feces and bugs. In reviewing our electronic medical record, a see no prior psychiatric contact within our system. The patient seen and examined. Chart reviewed. Case discussed with nursing staff on the medical floor. On my examination today, the patient reports that he has been caring for his at home for some time. He says "later on, I was getting a little weaker. That is why there was stuff on the floor, my son could not come over because of work". He says that his son has now cleaned up the house and the patient has every expectation of returning there to continue to care for his . The patient denies any issues with low mood or elevated mood. He denies any suicidal or homicidal ideation. He denies any audiovisual hallucinations and I can elicit no delusional beliefs. Mental status testing is as below. The remainder of the psychiatric ROS is negative. With the patient's permission, I have obtained collateral from his son, Jesus Membreno. Jesus tells me that the patient has no personal or family history of psychiatric illness. He has no history of suicide attempts. He has no chemical dependency history. He notes that the patient has been caring for his who had a stroke about 7 years ago but has been struggling lately because he has been growing weaker. The son maintains that he was not aware of the disheveled state of the home as alleged in the Andrews ACT and says that these conditions only prevailed in the back of the home as he always saw the patient and his in the front-most rooms of the home. The patient's son maintains that he has cleaned up the house and believes that the patient should be discharged home with home health care. PAST PSYCHIATRIC HISTORY The patient denies any history of psychiatric diagnosis. He denies any history of inpatient or outpatient psychiatric treatment. He denies any history of suicide attempts. FAMILY HISTORY The patient denies any family history of mental illness. CHEMICAL DEPENDENCY HISTORY: The patient denies any history of abuse of drugs or alcohol. SOCIAL HISTORY The patient reports that he has been living with his . He has a tenth grade education. 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 He has been 66 years. He has a son and two daughters. He served in the [employer]. He denies any legal history. Denies any access to guns or firearms. PAST MEDICAL HISTORY See electronic medical record. REVIEW OF SYSTEMS No reported headache, vision or hearing changes, chest pain, shortness of breath, bowel or bladder issues. No other physical complaints. PHYSICAL EXAMINATION VITAL SIGNS: Temperature 95.6, rest, respirations 64, blood pressure to her pulse rate 64, respirations 20, blood pressure 112/51, pulse oximetry 95% on room air. IN GENERAL: The physical examination completed by primary team. On my examination today, the patient appears to be thin and somewhat ill-appearing. I note that his BMI is 17.1. He appears to be in no acute physical distress. No motoric abnormalities noted. LABORATORY Reviewed: CBC reveals anemia with a hemoglobin of 9, CMP reveals decreased GFR with at 44. Albumin is quite low at 1.9. MENTAL STATUS EXAM The patient is in hospital gown. He is well-groomed. He is fairly well-groomed. He is awake and alert and oriented to person, place and date. His registration is 3/3 in his recall is 2/3 in 3 minutes. He is able to name two items and repeat a phrase. He is able to spell the word world forwards but not backwards. He is able to name the current president but not the proceeding president. Speech is within normal limits for rate, tone and volume. No motor abnormalities noted. Language and fund of knowledge seem average. Mood is depressed, fair and affect is blunted. Thought process linear. No loosening of associations. No evident delusions. No audiovisual hallucinations. Denies suicidal or homicidal ideation. Insight and judgment are unclear. ASSESSMENT/PLAN 1. Adjustment disorder, at 43.20 This is an 89-year-old male with psychiatric history as detailed above, who presents under Andrews ACT alleging deplorable conditions in the home. The patient was apparently residing at home with his and became increasingly unable to care for her. Despite this, the patient's son reports that he has cleaned up the house and anticipates taking the patient and home with home health care. I have discussed the matter with Dr. Tavares, now attending on the case, and he agrees that this is unacceptable given the reported circumstances in which the patient was found. The patient will likely require placement. I will leave the Andrews ACT in place for now pending further assessment. The case discussed with Dr. Tavares and RN. Call or page me with questions over the weekend. I will ask Dr. Wiley to follow up after the weekend. Thank you very much for this consultation. Raul Mckeon /3:12 PM /3:53 PM YURI
[2016-12-14] MEDS: SODIUM CHLOR 0.9% 1000 ML INJ 1,000 ML IV SCH (17:30)
--- NOTE | 2016-12-14 17:48 | PD.CONS ---
Consult Service Palliative Care Consult Requested By Dr. Fiore . Primary Care Physician Hieu Soto MD . Reason for Consultation a. To assist with evaluation and management of symptoms including: weakness , dyspnea, malnutrition, pain b. To assist medical decision maker(s) with: better understanding of current medical conditions; weighing benefits/burdens of medical treatment options; making medical treatment decisions. (Tracy Lynn) HPI History of Present Illness This is an 89-year-old male brought to the emergency room by EVAC with his spouse, both of whom Andrews acted in their home by [employer]. He had summoned a taxi to take his to see her doctor, however the caterpillar driver found Mr. Membreno dressed only in a soiled diaper and his naked and contacted the police. He states he had been progressively weaker for the last 2 days, however he had been weak for some time. He states he has been losing weight. Review of the records shows his current weight 54 kg whereas earlier records record his weight as high as 113 kg back to 2002. He is a very cachectic elderly male, so thin that the sternal wires can be seen protruding under his skin. He states that he eats approximately 2 meals a day due to decreased appetite. 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 His past medical history is significant for hypertension, coronary artery disease status post coronary artery bypass grafting in 2002 and bladder cancer status post cystectomy with nephrostomy tubes. At this evaluation he is sitting up in bed on oxygen via nasal cannula at 2 L in no acute distress. His laboratory studies today showed a normal white blood cell count of 7.5, decreased hemoglobin at 9.0 and decreased hematocrit at 26.7, platelet count 215. Chemistry panel shows an elevated BUN of 66 and an elevated creatinine 1.51. The troponin was elevated at 0.93, 0.12, 0.12. Total creatinine kinase is decreasing from 325 to189 CK-MB was 9.0 on admission. He denies any chest pain. Urinalysis shows a light red cloudy specimen with a pH of 8.0 specific gravity of 1.016 urine protein 100 moderate occult blood large leukocyte esterase 139 red blood cells. Preliminary culture shows Proteus species, sensitivity pending. Chest x-ray shows hyperinflation suggesting COPD with no acute infiltrate or effusion. He does have 3 children, a son Jesus Membreno who lives locally, a daughter Geeta Robles who resides in [place] and a daughter Kimmy Membreno who resides in [place]. He states he does have 3 siblings that he believes are still alive. We have contact information only for the son Jesus. A telephone call was placed to him and a message left. He denies any living will or health care surrogate having been previously completed but does state that he wishes all 3 of his children to serve as his healthcare surrogate. CODE STATUS was discussed with him in detail by myself and CHAPIS Ashraf and he states he would not want CPR or intubation or heroic measures. DO NOT RESUSCITATE status was explained to him and he states that is his choice to go naturally. A DNR order was entered in the chart in accordance with his wishes. . Function/Cognitive Trajectory He states he has become progressively weaker over the last few months and the weakness has increased sharply over the last few days. He has progressively lost a great deal of weight and is now cachectic. He states he eats 2 small meals a day because that is all his appetite allows. He endorses that he has been driving up until very recently and has been able to do his own grocery shopping. He is the caregiver for his who suffered a debilitating CVA some years ago but states he is having more difficulty providing care for her. . (Tracy Lynn) Review of Systems Constitutional: COMPLAINS OF: Fatigue, Weight loss, Change in appetite, Generalized weakness Respiratory: COMPLAINS OF: Shortness of breath Gastrointestinal: COMPLAINS OF: Anorexia Genitourinary: COMPLAINS OF: Hematuria (Tracy Lynn) Past Family Social History Coded Allergies: Sulfa (Verified Allergy, Severe, 04/28/16) SULFA Penicillin (Verified Allergy, Unknown, PT UNAWARE OF REACTION - STATES " IT MAKES ME SICK", 12/13/16) Past Medical History PMH: HTN, CAD and Bladder CA Past Surgical History PAST SURGICAL HISTORY: CABG, Cystectomy Reported Medications Reported Meds & Active Scripts Active Reported Zocor (Simvastatin) 40 Mg Tab 40 Mg PO HS Metoprolol Tartrate 25 Mg Tab 25 Mg PO BID Aspirin Adult Low Strength (Aspirin) 81 Mg Tabdr 162 Mg PO DAILY Current Medications Medications (Trade) Dose Ordered Sig/Vania Route Start Time Stop Time Status Last Admin Sodium Chloride 2 ml 2 ml UNSCH PRN IVF 12/13/16 15:30 (NS 1000 ml Inj) 1,000 ml @ 70 mls/hr [id number] IV 12/13/16 19:00 12/13/16 21:00 (Zofran Inj) 4 mg Q6H PRN IVP 12/13/16 18:45 Naloxone HCl 0.4 mg 0.4 mg UNSCH PRN IV 12/13/16 18:45 (Azactam Inj/NS Inj) 100 ml @ 200 mls/hr Q8H IV 12/14/16 02:00 12/14/16 10:04 (Ecotrin Ec) 162 mg DAILY PO 12/14/16 09:00 12/14/16 07:53 Family History PAST FAMILY HISTORY: Reviewed. No h/o DM or CAD. 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 Mother at 93 of natural causes. Substance Use Tobacco: Has about a 25 PYH, quit smoking about 50 years ago. Alcohol: none Prescription med abuse:none Illicits:none Psychosocial History This is an elderly white male thin and frail caregiver for his born in [place] and moved to [place] after he was . 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 He is a of the [employer] for 7 years and maybe for 1 year. He has 3 children and 3 remaining living siblings. He has not created a healthcare surrogate form but wishes his 3 children to be his surrogates. We have reached up to the son Jesus jasso contact information we do have and are awaiting a return phone call to establish contact. He did verbally state he requests no CPR or intubation and that status was entered into the record in accordance with his wishes. Spiritual/Cultural Factors None (Tracy Lynn) Living Will: Never completed Health Care Surrogate: Never completed Durable Power of Tank Tender: Never completed Today's verbally stated goals: He wishes his 3 children to be his joint healthcare surrogates and wishes a DO NOT RESUSCITATE status. . Family/friends goals: His goal is to return home with his . He states he spent his whole life buying a house and he wants to live in it. His son states he wants them to go with home health care. Physical therapy evaluation will be performed to evaluate the safety that plan. Case management is investigating his VA benefits. . (Tracy Lynn) Physical Exam Vital Signs Date Time Temp Pulse Resp B/P Pulse Ox O2 Delivery O2 Flow Rate FiO2 12/14/16 14:12 70 12/14/16 12:56 95.6 64 20 112/51 95 12/14/16 08:00 96.6 71 18 96/55 95 12/14/16 04:25 96.6 74 16 102/59 98 12/14/16 00:20 96.8 72 16 98/53 99 12/13/16 20:50 100 12/13/16 20:50 97.0 73 16 119/57 12/13/16 20:00 100 Nasal Cannula 1.50 12/13/16 19:28 97.7 75 18 103/58 100 Nasal Cannula 2 12/13/16 18:30 96.1 12/13/16 18:15 96.1 61 18 91/53 100 Nasal Cannula 2 12/13/16 12/14/16 19:00 07:00 Intake Total 240 ml Output Total 600 ml Balance -360 ml Intake Oral 240 ml Output Urine Total 600 ml # Voids 0 # Bowel Movements 0 Exam CONSTITUTIONAL/GENERAL: This is a thin cachectic, in no apparent distress. TUBES/LINES/DRAINS: A 20-gauge PIV in L ACDF, R ACDF. SKIN: No jaundice, rashes, or lesions.Skin temperature appropriate. Not diaphoretic. HEAD: Atraumatic. Normocephalic. EYES: Pupils equal and round and reactive. Extraocular motions intact. No scleral icterus. Fundi not examined. ENT: Hearing grossly normal. Nose without bleeding or purulent drainage. Mild speech impediment NECK: Trachea midline. Supple, nontender. No palpable thyroid enlargement. CARDIOVASCULAR: Regular rate and rhythm without murmurs, gallops, or rubs. No JVD. Peripheral pulses symmetric. RESPIRATORY/CHEST: Symmetric, unlabored respirations. Clear to auscultation. Breath sounds equal bilaterally. No wheezes, rales, or rhonchi. GASTROINTESTINAL: Abdomen soft, non-tender, nondistended. No guarding. Bowel sounds present. GENITOURINARY: Nephrostomy tube MUSCULOSKELETAL: Extremities without clubbing, cyanosis, or edema. No mottling or clubbing. NEUROLOGICAL: Awake and alert. Motor and sensory grossly within normal limits. Follows commands. Cognitively sharp. Moves all extremities. PSYCHIATRIC: No obvious anxiety/depression. no apparent hallucinations or other psychotic thought process. (Tracy Lynn) Diagnostic Tests Laboratory Laboratory Tests Test 12/13/16 12/13/16 12/13/16 12/13/16 16:00 16:30 16:50 22:58 Sodium Level 143 MEQ/L (136-145) Potassium Level 4.0 MEQ/L (3.5-5.1) Chloride Level 104 MEQ/L (98-107) Carbon Dioxide Level 31.7 MEQ/L (21.0-32.0) Anion Gap 7 MEQ/L (5-15) Blood Urea Nitrogen 68 MG/DL (7-18) Creatinine 1.75 MG/DL (0.60-1.30) Estimat Glomerular Filtration 37 ML/MIN (>89) Rate Random Glucose 68 MG/DL (74-106) Calcium Level 9.6 MG/DL (8.5-10.1) Magnesium Level 2.5 MG/DL (1.5-2.5) Total Bilirubin 0.6 MG/DL (0.2-1.0) Aspartate Amino Transf 35 U/L (15-37) (AST/SGOT) Alanine Aminotransferase 18 U/L (12-78) (ALT/SGPT) Alkaline Phosphatase 78 U/L (45-117) Total Creatine Kinase 325 U/L 238 U/L (39-308) (39-308) Creatine Kinase MB 9.0 NG/ML (0.5-3.6) Creatine Kinase MB % 2.8 % (0.0-4.0) Troponin I 0.13 NG/ML 0.12 NG/ML (0.02-0.05) (0.02-0.05) Total Protein 7.6 GM/DL (6.4-8.2) Albumin 2.4 GM/DL (3.4-5.0) White Blood Count 9.3 TH/MM3 (4.0-11.0) Red Blood Count 3.11 MIL/MM3 (4.50-5.90) Hemoglobin 10.2 GM/DL (13.0-17.0) Hematocrit 30.9 % (39.0-51.0) Mean Corpuscular Volume 99.4 FL (80.0-100.0) Mean Corpuscular Hemoglobin 32.8 PG (27.0-34.0) Mean Corpuscular Hemoglobin 33.0 % Concent (32.0-36.0) Red Cell Distribution Width 15.1 % (11.6-17.2) Platelet Count 238 TH/MM3 (150-450) Mean Platelet Volume 10.6 FL (7.0-11.0) Neutrophils (%) (Auto) 93.6 % (16.0-70.0) Lymphocytes (%) (Auto) 2.5 % (9.0-44.0) Monocytes (%) (Auto) 3.7 % (0.0-8.0) Eosinophils (%) (Auto) 0.0 % (0.0-4.0) Basophils (%) (Auto) 0.2 % (0.0-2.0) Neutrophils # (Auto) 8.7 TH/MM3 (1.8-7.7) Lymphocytes # (Auto) 0.2 TH/MM3 (1.0-4.8) Monocytes # (Auto) 0.4 TH/MM3 (0-0.9) Eosinophils # (Auto) 0.0 TH/MM3 (0-0.4) Basophils # (Auto) 0.0 TH/MM3 (0-0.2) CBC Comment DIFF FINAL Differential Comment Urine Color LIGHT-RED (YELLW/STRAW) Urine Turbidity CLOUDY (CLEAR) Urine pH 8.0 (5.0-8.5) Urine Specific [place] 1.016 (1.002-1.035) Urine Protein 100 mg/dL (NEG-TRACE) Urine Glucose (UA) NEG mg/dL (NEG) Urine Ketones NEG mg/dL (NEG) Urine Occult Blood MOD (NEG) Urine Nitrite NEG (NEG) Urine Bilirubin NEG (NEG) Urine Urobilinogen LESS THAN 2.0 MG/DL (LESS THAN 2.0) Urine Leukocyte Esterase LARGE (NEG) Urine RBC 139 /hpf (0-3) Urine WBC /hpf (0-5) Urine Calcium Oxalate Crystals FEW /hpf (NONE) Urine Bacteria OCC /hpf (NONE) Microscopic Urinalysis Comment CATH-CULTURE IND Lactic Acid Level 1.3 mmol/L (0.4-2.0) Test 12/14/16 03:48 White Blood Count 7.5 TH/MM3 (4.0-11.0) Red Blood Count 2.70 MIL/MM3 (4.50-5.90) Hemoglobin 9.0 GM/DL (13.0-17.0) Hematocrit 26.7 % (39.0-51.0) Mean Corpuscular Volume 98.6 FL (80.0-100.0) Mean Corpuscular Hemoglobin 33.2 PG (27.0-34.0) Mean Corpuscular Hemoglobin 33.7 % Concent (32.0-36.0) Red Cell Distribution Width 15.0 % (11.6-17.2) Platelet Count 215 TH/MM3 (150-450) Mean Platelet Volume 10.2 FL (7.0-11.0) Neutrophils (%) (Auto) 87.6 % (16.0-70.0) Lymphocytes (%) (Auto) 5.7 % (9.0-44.0) Monocytes (%) (Auto) 5.1 % (0.0-8.0) Eosinophils (%) (Auto) 1.3 % (0.0-4.0) Basophils (%) (Auto) 0.3 % (0.0-2.0) Neutrophils # (Auto) 6.5 TH/MM3 (1.8-7.7) Lymphocytes # (Auto) 0.4 TH/MM3 (1.0-4.8) Monocytes # (Auto) 0.4 TH/MM3 (0-0.9) Eosinophils # (Auto) 0.1 TH/MM3 (0-0.4) Basophils # (Auto) 0.0 TH/MM3 (0-0.2) CBC Comment DIFF FINAL Differential Comment Sodium Level 143 MEQ/L (136-145) Potassium Level 4.2 MEQ/L (3.5-5.1) Chloride Level 108 MEQ/L (98-107) Carbon Dioxide Level 30.5 MEQ/L (21.0-32.0) Anion Gap 5 MEQ/L (5-15) Blood Urea Nitrogen 66 MG/DL (7-18) Creatinine 1.51 MG/DL (0.60-1.30) Estimat Glomerular Filtration 44 ML/MIN (>89) Rate Random Glucose 80 MG/DL (74-106) Calcium Level 8.6 MG/DL (8.5-10.1) Total Bilirubin 0.3 MG/DL (0.2-1.0) Aspartate Amino Transf 35 U/L (15-37) (AST/SGOT) Alanine Aminotransferase 20 U/L (12-78) (ALT/SGPT) Alkaline Phosphatase 71 U/L (45-117) Total Creatine Kinase 189 U/L (39-308) Troponin I 0.12 NG/ML (0.02-0.05) Total Protein 6.2 GM/DL (6.4-8.2) Albumin 1.9 GM/DL (3.4-5.0) (Tracy Lynn) Result Diagram: 12/14/16 0348 12/14/16 0348 Microbiology Microbiology Date/Time Procedure Status Source Growth 12/13/16 16:00 Aerobic Blood Culture - Preliminary Resulted Blood Peripheral NO GROWTH IN 1 DAY 12/13/16 16:00 Anaerobic Blood Culture - Preliminary Resulted Blood Peripheral NO GROWTH IN 1 DAY 12/13/16 16:00 Aerobic Blood Culture - Preliminary Resulted Blood Peripheral NO GROWTH IN 1 DAY 12/13/16 16:00 Anaerobic Blood Culture - Preliminary Resulted Blood Peripheral NO GROWTH IN 1 DAY 12/13/16 16:30 Urine Culture - Preliminary Resulted Urine Catheterized Urine Proteus Species Imaging Last Impressions Chest X-Ray 12/13/16 1529 Signed Impressions: Service Date/Time: December 15:34 - CONCLUSION: Hyperinflation suggesting COPD. Chronic changes involving the lungs and pleura are stable. No acute infiltrate or effusion. Brandon Frost Jr., MD (Tracy Lynn) Patient/Family Conference Issues Discussed: * Palliative care role, purpose, approach * Additional medical, psychosocial, and spiritual history * Patients general health, functional status, and cognitive changes in the months leading up to the current hospitalization * Patient/family understanding of the current medical problems * Patient/family understanding of prognosis * Patients goals of care as best understood from advance directives and/or conversations and/or values * Current medical treatment options and benefits/burdens of those options * Likely scenarios comparing ongoing aggressive care with a transition to comfort measures only * Questions answered to the best of my ability * Palliative care contact information provided (Tracy Lynn) Assessment and Plan Disease Oriented Problem List: (1) Generalized weakness (2) Elevated troponin I level (3) Total self-care deficit (4) UTI (urinary tract infection) (5) COPD (chronic obstructive pulmonary disease) Symptom Scale: (1) Weakness 0-10 Scale: Unable to quantify (2) Dyspnea and respiratory abnormalities 0-10 Scale: Unable to quantify (3) Pain, generalized 0-10 Scale: Unable to quantify (4) Malnutrition 0-10 Scale: Unable to quantify Pertinent Non-Medical Issues Psychosocial:This is an elderly white male thin and frail caregiver for his born in [place] and moved to [place] after he was . 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 He is a of the [employer] for 7 years and the [employer] for 1 year. He has 3 children and 3 remaining living siblings. He has not created a healthcare surrogate form but wishes his 3 children to be his surrogates. We have reached out to the son Jesus whose contact information we do have and are awaiting a return phone call to establish contact. He did verbally state he requests no CPR or intubation and that status was entered into the record in accordance with his wishes. Spiritual: None Legal:He wishes his 3 children to be his joint healthcare surrogates and wishes a DO NOT RESUSCITATE status. Ethical issues impacting care: Important Contacts Son - Jesus Jr. Temi Daughter - Geeta Robles ([place]) Daughter - Kimmy Temi ([place]) Neighbor - Sabrinaenedelia Brito Prognosis This is an elderly, cachectic male who has lost approximately 100 lbs since his CABG in 2002. He has a history of CAD, CABG, bladder cancer and is admitted with inability for self-care, urinary tract infection, dehydration and confusion. He has been experiencing progressive weakness and decline in functional status over the last several months. Given his comorbidities, physical frailties his prognosis is poor. Code Status: No Code Plan * Legal decision maker: Patient is capable of making his own decisions at this time, but stated he wants his 3 children to be joint surrogates. Contact information is being sought from his son, Jesus . Message left on VM. * GOALS: He wishes DNR status and that has been entered. He wants to return to his home with his . * CODE STATUS: DNR SYMPTOMS: * Weakness - on antibiotics for UTI and feels he is improving. PT following for muscle strengthening. Malnutrition contributing, recommend supplements. * Dyspnea -mild dyspnea with head of bed elevated on nasal cannula O2. Pulmonary toilet. * Pain - complains of mild back discomfort relieved with repositioning. Encourage mobility. * Malnutrition - would recommend appetite stimulant and supplemental shakes. Unclear at this time whether appetite or self care deficit is cause. Palliative care will continue to follow the patient during hospital course as condition evolves, to assist patient/decision-maker with understanding of their medical conditions, weighing benefits/burdens of treatment options, for clarification of goals of treatment. Additionally will assist with any symptoms of palliative concern. (Tracy Lynn) Thank you for the opportunity to participate in the care of Mr. Membreno. (Tracy Lynn) Attestation To help prompt me to consider important information that might be impacting today's encounter and assessment, information from prior notes written by myself or my colleagues may have been "brought forward" into today's note. My signature on this note, however, is an attestation that I personally performed the exam, history, and/or decision-making noted today, and, unless otherwise indicated, the interactions with patient, family, and staff as well as the review of records all occurred today. I also attest that the listed assessment and stated plan reflect my best clinical judgment today based on the combination of historical information, prior notes, and today's exam/ interactions. When time spent is documented, it refers only to time spent today by the signer, or if indicated, combined time spent today by collaborating physician/nurse practitioner. (Tracy Lynn) Collaborating MD Comments . Chart reviewed. Cased discussed with palliative care MANUFACTURING TEAM LEADER. Above MANUFACTURING TEAM LEADER note reviewed and I concur. . (Trent Patton MD) Tracy Lynn December 14, 2016 17:47 Trent Patton MD January 07, 2017 15:55
[2016-12-15 00:14] VITALS: BP 103/55; PULSE 80; RESP 16; TEMP 96; O2SAT 94
[2016-12-15] MEDS: AZTREONAM INJ 1,000 MG in SODIUM CHLORIDE 0.9% INJ 100 ML IV SCH ×3 (01:14→17:45)
[2016-12-15 04:45] VITALS: BP 108/60; PULSE 72; RESP 16; TEMP 97.2; O2SAT 93
[2016-12-15 07:50] VITALS: BP 100/57; PULSE 96; RESP 20; TEMP 99.4; O2SAT 94
[2016-12-15] MEDS: ASPIRIN EC 81 MG TABEC PO SCH (08:21)
[2016-12-15] MEDS: SODIUM CHLOR 0.9% 1000 ML INJ 1,000 ML IV SCH ×2 (08:21→13:54)
--- NOTE | 2016-12-15 09:58 | HHI.PR ---
Subjective Remarks in no acute distress. denies pain. no fever. Objective Vitals Vital Signs Date Time Temp Pulse Resp B/P Pulse Ox O2 Delivery O2 Flow Rate FiO2 12/15/16 04:45 97.2 72 16 108/60 93 12/15/16 01:21 Nasal Cannula 2.00 12/15/16 00:14 96.0 80 16 103/55 94 12/14/16 20:42 98.2 76 16 100/51 94 12/14/16 17:37 95 21 12/14/16 14:12 70 12/14/16 14:04 94.0 65 17 110/55 94 12/14/16 12:56 95.6 64 20 112/51 95 I/O 12/14/16 12/14/16 12/14/16 12/15/16 12/15/16 12/15/16 07:00 15:00 23:00 07:00 15:00 23:00 Intake Total 120 ml 440 ml 1340 ml Output Total 500 ml 1450 ml 600 ml Balance -380 ml -1010 ml 740 ml Intake Oral 120 ml 440 ml 350 ml IV Total 990 ml Output Urine Total 500 ml 1450 ml 600 ml # Bowel Movements 0 1 1 Result Diagram: 12/14/16 0348 12/14/16 0348 Imaging Last Impressions Chest X-Ray 12/13/16 1529 Signed Impressions: Service Date/Time: December 15:34 - CONCLUSION: Hyperinflation suggesting COPD. Chronic changes involving the lungs and pleura are stable. No acute infiltrate or effusion. Brandon Frost Jr., MD Objective Remarks GENERAL: elderly male, in no apparent distress. CARDIOVASCULAR: Regular rate and regular rhythm without murmurs, gallops, or rubs. RESPIRATORY: Clear to auscultation. Breath sounds equal bilaterally. No wheezes , rales, or rhonchi. GASTROINTESTINAL: Abdomen soft, non-tender, nondistended. Normal, active bowel sounds MUSCULOSKELETAL: Extremities without clubbing, cyanosis, or edema. NEURO: Alert & Oriented x4 to person, place, time, situation. Moves all ext x4 Procedures none Medications and IVs Current Medications Sodium Chloride 2 ml 2 ml UNSCH PRN IVF FLUSH AFTER USING IV ACCESS; Start 12/13 at 15:30 Sodium Chloride (NS 500 ml Inj) 500 ml @ 500 mls/hr BOLUS ONCE IV Last administered on 12/13/16 15:55; Start 12/13/16 at 15:45; Stop 12/13/16 at 16:44; Status DC Dextrose 50 ml 50 ml NOW ONCE IV PUSH Last administered on 12/13/16 16:18; Start 12/13/16 at 16:15; Stop 12/13/16 at 16:16; Status DC Aztreonam 1000 mg/ Sodium Chloride 100 ml @ 200 mls/hr ONCE ONCE IV Last administered on 12/13/16 18:40; Start 12/13/16 at 17:30; Stop 12/13/16 at 17:59; Status DC Sodium Chloride (NS 500 ml Inj) 500 ml @ 500 mls/hr BOLUS ONCE IV Last administered on 12/13/16 18:41; Start 12/13/16 at 17:30; Stop 12/13/16 at 18:29; Status DC Aspirin 325 mg 325 mg ONCE ONCE PO Last administered on 12/13/16 18:39; Start 12/13/16 at 17:45; Stop 12/13/16 at 17:46; Status DC Sodium Chloride 500 ml @ 500 mls/hr BOLUS ONCE IV Last administered on 19:33; Start 12/13/16 at 18:30; Stop 12/13/16 at 19:29; Status DC Sodium Chloride (NS 1000 ml Inj) 1,000 ml @ 70 mls/hr [id number] IV Last administered on 12/15/16 08:21; Start 12/13/16 at 19:00 Ondansetron HCl (Zofran Inj) 4 mg Q6H PRN IVP NAUSEA OR VOMITING; Start at 18:45 Naloxone HCl 0.4 mg 0.4 mg UNSCH PRN IV SEE LABEL COMMENTS; Start 12/13/16 at 18 :45 Aztreonam/Sodium Chloride (Azactam Inj/NS Inj) 100 ml @ 200 mls/hr Q8H IV Last administered on 12/15/16 08:21; Start 12/14/16 at 02:00 Aspirin (Ecotrin Ec) 162 mg DAILY PO Last administered on 12/15/16 08:21; Start 12/14/16 at 09:00 A/P Assessment and Plan A/P 1. Encephalopathy: Resolved. Likely secondary to acute infection compounded by hypoglycemia and hypothermia, all currently resolved. Pt awake, alert and answering questions appropriately. continue IV Abx- will deescalate the antibiotic regimen soon when the cultures are resulted. 2. Hypoglycemia: BS 18, has resolved. 3. Elevated Trop: Trop trend atbel- EKG w/ no acute changes, no c/o chest pain. Continue home ASA. Hold B-jameel in light of borderline BP. 4. COPD: Chronic Respiratory Failure. Stable. CXR w/ COPD, no acute findings. DuoNeb prn. 5. Total Self Care Deficit: Found by EMS to be living in horrid conditions w/ , covered in feces, unable to care for self, currently under Andrews Act. psych consult appreciated and previously d/w .andrews act remains in place for now. 6. DVT Prophylaxis: SCD/Teds. palliative care consult appreciated. on DNR status. consulted case management and PT. Discharge Planning case management consulted for SNF placement and DCF referral. Corby Fiore MD December 15, 2016 09:57
[2016-12-15 11:50] VITALS: BP 129/60; PULSE 75; RESP 20; TEMP 96.2; O2SAT 95
[2016-12-15 15:50] VITALS: BP 132/63; PULSE 77; RESP 20; TEMP 98.3; O2SAT 96
[2016-12-15 20:00] VITALS: BP 123/59; PULSE 78; PULSE 82; RESP 16; TEMP 97.2; O2SAT 91
[2016-12-16] VITALS (7 sets, daily range): BP systolic 116–137; BP diastolic 59–63; PULSE 75–92; RESP 16–18; TEMP 96.1–98; O2SAT 94–97
[2016-12-16] MEDS: AZTREONAM INJ 1,000 MG in SODIUM CHLORIDE 0.9% INJ 100 ML IV SCH (00:54)
[2016-12-16] MEDS: SODIUM CHLOR 0.9% 1000 ML INJ 1,000 ML IV SCH ×2 (04:12→17:24)
[2016-12-16] MEDS ORDERED: ACETAMINOPHEN 325 MG TAB PO ONE (07:15)
[2016-12-16] MEDS: ASPIRIN EC 81 MG TABEC PO SCH (07:58)
--- NOTE | 2016-12-16 10:07 | HHI.PR ---
Subjective Remarks overall doing fine with no complaints. no fever. denies pain. Objective Vitals Vital Signs Date Time Temp Pulse Resp B/P Pulse Ox O2 Delivery O2 Flow Rate FiO2 12/16/16 08:32 98.0 89 18 128/60 95 12/16/16 08:01 Nasal Cannula 2.00 21 12/16/16 04:00 97.2 79 16 130/59 94 12/16/16 00:00 97.1 85 18 133/60 95 12/15/16 22:03 95 Nasal Cannula 2.00 12/15/16 20:00 97.2 78 16 123/59 91 12/15/16 20:00 82 12/15/16 15:50 98.3 77 20 132/63 96 12/15/16 14:33 Nasal Cannula 2.00 12/15/16 12:10 Nasal Cannula 2.00 21 12/15/16 11:50 96.2 75 20 129/60 95 I/O 12/15/16 12/15/16 12/15/16 12/16/16 12/16/16 12/16/16 07:00 15:00 23:00 07:00 15:00 23:00 Intake Total 1340 ml 360 ml 936 ml 766 ml Output Total 600 ml 600 ml Balance 740 ml -240 ml 936 ml 766 ml Intake Oral 350 ml 360 ml 120 ml IV Total 990 ml 816 ml TPN/PPN 766 ml Output Urine Total 600 ml 600 ml # Bowel Movements 1 0 Result Diagram: 12/14/16 0348 12/14/16 0348 Imaging Last Impressions Chest X-Ray 12/13/16 1529 Signed Impressions: Service Date/Time: December 15:34 - CONCLUSION: Hyperinflation suggesting COPD. Chronic changes involving the lungs and pleura are stable. No acute infiltrate or effusion. Brandon Frost Jr., MD Objective Remarks GENERAL: elderly male, in no apparent distress. CARDIOVASCULAR: Regular rate and regular rhythm without murmurs, gallops, or rubs. RESPIRATORY: Clear to auscultation. Breath sounds equal bilaterally. No wheezes , rales, or rhonchi. GASTROINTESTINAL: Abdomen soft, non-tender, nondistended. Normal, active bowel sounds MUSCULOSKELETAL: Extremities without clubbing, cyanosis, or edema. NEURO: Alert & Oriented x4 to person, place, time, situation. Moves all ext x4 Procedures none Medications and IVs Current Medications Sodium Chloride 2 ml 2 ml UNSCH PRN IVF FLUSH AFTER USING IV ACCESS; Start 12/13 at 15:30 Sodium Chloride (NS 500 ml Inj) 500 ml @ 500 mls/hr BOLUS ONCE IV Last administered on 12/13/16 15:55; Start 12/13/16 at 15:45; Stop 12/13/16 at 16:44; Status DC Dextrose 50 ml 50 ml NOW ONCE IV PUSH Last administered on 12/13/16 16:18; Start 12/13/16 at 16:15; Stop 12/13/16 at 16:16; Status DC Aztreonam 1000 mg/ Sodium Chloride 100 ml @ 200 mls/hr ONCE ONCE IV Last administered on 12/13/16 18:40; Start 12/13/16 at 17:30; Stop 12/13/16 at 17:59; Status DC Sodium Chloride (NS 500 ml Inj) 500 ml @ 500 mls/hr BOLUS ONCE IV Last administered on 12/13/16 18:41; Start 12/13/16 at 17:30; Stop 12/13/16 at 18:29; Status DC Aspirin 325 mg 325 mg ONCE ONCE PO Last administered on 12/13/16 18:39; Start 12/13/16 at 17:45; Stop 12/13/16 at 17:46; Status DC Sodium Chloride 500 ml @ 500 mls/hr BOLUS ONCE IV Last administered on 19:33; Start 12/13/16 at 18:30; Stop 12/13/16 at 19:29; Status DC Sodium Chloride (NS 1000 ml Inj) 1,000 ml @ 70 mls/hr [id number] IV Last administered on 12/16/16 04:12; Start 12/13/16 at 19:00 Ondansetron HCl (Zofran Inj) 4 mg Q6H PRN IVP NAUSEA OR VOMITING; Start at 18:45 Naloxone HCl 0.4 mg 0.4 mg UNSCH PRN IV SEE LABEL COMMENTS; Start 12/13/16 at 18 :45 Aztreonam/Sodium Chloride (Azactam Inj/NS Inj) 100 ml @ 200 mls/hr Q8H IV Last administered on 12/16/16 00:54; Start 12/14/16 at 02:00 Aspirin (Ecotrin Ec) 162 mg DAILY PO Last administered on 12/16/16 07:58; Start 12/14/16 at 09:00 Acetaminophen (Tylenol) 650 mg ONCE ONCE PO Last administered on 12/16/16 07: 08; Start 12/16/16 at 07:15; Stop 12/16/16 at 07:16; Status DC A/P Assessment and Plan A/P 1. Encephalopathy: Resolved. Likely secondary to acute infection compounded by hypoglycemia and hypothermia, all currently resolved. Pt awake, alert and answering questions appropriately. UC with proteus. will switch to cipro. 2. Hypoglycemia: has resolved. 3. Elevated Trop: Trop trend stable- EKG w/ no acute changes, no c/o chest pain. Continue home ASA. Hold B-jameel in light of borderline BP. 4. COPD: Chronic Respiratory Failure. Stable. CXR w/ COPD, no acute findings. DuoNeb prn. 5. Total Self Care Deficit: Found by EMS to be living in horrid conditions w/ , covered in feces, unable to care for self, currently under Andrews Act. psych consult appreciated and previously d/w .andrews act remains in place for now. 6. DVT Prophylaxis: SCD/Teds. palliative care consult appreciated. on DNR status. consulted case management and PT. Discharge Planning dc planning within the next 24 hrs. SNF vs home with HHC. d/w the son; reportedly HHC arrangement in process through his PCP; contact center representative; Emely; [phone]. Corby Fiore MD December 16, 2016 10:07
[2016-12-16 11:17] LABS: AUTOMATED NEUTROPHIL # 4.8 TH/MM3 (1.8-7.7); BASOPHIL % 0.4 % (0.0-2.0); EOSINOPHIL # 0.3 TH/MM3 (0-0.4); EOSINOPHIL % 4.1 % (0.0-4.0); HEMATOCRIT 31.5 % (39.0-51.0); HEMO FLAGS DIFF FINAL; LYMPH % 19.9 % (9.0-44.0); LYMPHOCYTE # 1.4 TH/MM3 (1.0-4.8); MEAN CELL VOLUME 87.1 FL (80.0-100.0); MEAN CORPUSCULAR HEMOGLOBIN 29.1 PG (27.0-34.0); MEAN CORPUSCULAR HGB CONC 33.4 % (32.0-36.0); MONO % 8.1 % (0.0-8.0); NEUT % 67.5 % (16.0-70.0); PLATELET COUNT 373 TH/MM3 (150-450); RED BLOOD COUNT 3.62 MIL/MM3 (4.50-5.90); RED CELL DISTRIBUTION WIDTH 14.2 % (11.6-17.2); WHITE BLOOD COUNT 7.1 TH/MM3 (4.0-11.0)
--- NOTE | 2016-12-16 17:24 | HHI.DCPOC ---
Discharge Care Plan Diagnosis: (1) Weakness (2) UTI (urinary tract infection) Your Health Problems Are: Difficulty with ADL Goals to Promote Your Health * To prevent worsening of your condition and complications * To maintain your health at the optimal level Directions to Meet Your Goals Take your medications as prescribed Follow your dietary instruction Follow activity as directed Keep your appointments as scheduled Take your immunizations and boosters as scheduled If your symptoms worsen call your PCP, if no PCP go to Urgent Care Center or Emergency Room Smoking is Dangerous to Your Health. Avoid second hand smoke Call the 24-hour hour crisis hotline for domestic abuse at Corby Fiore MD December 16, 2016 17:24
[2016-12-16] MEDS: CIPROFLOXACIN 250 MG TAB PO SCH (20:30)
[2016-12-17] VITALS (7 sets, daily range): BP systolic 124–151; BP diastolic 58–74; PULSE 75–89; RESP 16–20; TEMP 96.1–98.5; O2SAT 92–100
[2016-12-17] MEDS: SODIUM CHLOR 0.9% 1000 ML INJ 1,000 ML IV SCH (06:29)
[2016-12-17] MEDS: CIPROFLOXACIN 250 MG TAB PO SCH ×2 (08:01→20:27)
[2016-12-17] MEDS: ASPIRIN EC 81 MG TABEC PO SCH (08:01)
--- NOTE | 2016-12-17 10:25 | HHI.PR ---
Subjective Remarks resting comfortably with no distress. denies pain. no fever. no new complaints. Objective Vitals Vital Signs Date Time Temp Pulse Resp B/P Pulse Ox O2 Delivery O2 Flow Rate FiO2 12/17/16 08:05 Nasal Cannula 2.00 21 12/17/16 08:00 96.2 83 20 141/69 12/17/16 04:17 96.8 77 20 148/67 98 12/17/16 00:00 97.2 83 19 124/58 99 12/16/16 20:00 97.5 85 17 137/61 95 12/16/16 20:00 Nasal Cannula 2.00 12/16/16 20:00 80 12/16/16 16:00 96.2 76 17 128/63 96 12/16/16 12:52 96.1 75 17 116/59 97 I/O 12/16/16 12/16/16 12/16/16 12/17/16 12/17/16 12/17/16 07:00 15:00 23:00 07:00 15:00 23:00 Intake Total 1292 ml 60 ml 1405 ml Output Total 700 ml 300 ml Balance 592 ml -240 ml 1405 ml Intake Oral 60 ml IV Total 526 ml 1405 ml TPN/PPN 766 ml Output Urine Total 700 ml 300 ml # Bowel Movements 0 0 Result Diagram: 12/16/16 0611 12/14/16 0348 Imaging Last Impressions Chest X-Ray 12/13/16 1529 Signed Impressions: Service Date/Time: December 15:34 - CONCLUSION: Hyperinflation suggesting COPD. Chronic changes involving the lungs and pleura are stable. No acute infiltrate or effusion. Brandon Frost Jr., MD Objective Remarks GENERAL: elderly male, in no apparent distress. CARDIOVASCULAR: Regular rate and regular rhythm without murmurs, gallops, or rubs. RESPIRATORY: Clear to auscultation. Breath sounds equal bilaterally. No wheezes , rales, or rhonchi. GASTROINTESTINAL: Abdomen soft, non-tender, nondistended. Normal, active bowel sounds MUSCULOSKELETAL: Extremities without clubbing, cyanosis, or edema. NEURO: Alert & Oriented x4 to person, place, time, situation. Moves all ext x4 Procedures none Medications and IVs Current Medications Sodium Chloride 2 ml 2 ml UNSCH PRN IVF FLUSH AFTER USING IV ACCESS; Start 12/13 at 15:30 Sodium Chloride (NS 500 ml Inj) 500 ml @ 500 mls/hr BOLUS ONCE IV Last administered on 12/13/16 15:55; Start 12/13/16 at 15:45; Stop 12/13/16 at 16:44; Status DC Dextrose 50 ml 50 ml NOW ONCE IV PUSH Last administered on 12/13/16 16:18; Start 12/13/16 at 16:15; Stop 12/13/16 at 16:16; Status DC Aztreonam 1000 mg/ Sodium Chloride 100 ml @ 200 mls/hr ONCE ONCE IV Last administered on 12/13/16 18:40; Start 12/13/16 at 17:30; Stop 12/13/16 at 17:59; Status DC Sodium Chloride (NS 500 ml Inj) 500 ml @ 500 mls/hr BOLUS ONCE IV Last administered on 12/13/16 18:41; Start 12/13/16 at 17:30; Stop 12/13/16 at 18:29; Status DC Aspirin 325 mg 325 mg ONCE ONCE PO Last administered on 12/13/16 18:39; Start 12/13/16 at 17:45; Stop 12/13/16 at 17:46; Status DC Sodium Chloride 500 ml @ 500 mls/hr BOLUS ONCE IV Last administered on 19:33; Start 12/13/16 at 18:30; Stop 12/13/16 at 19:29; Status DC Sodium Chloride (NS 1000 ml Inj) 1,000 ml @ 70 mls/hr [id number] IV Last administered on 12/17/16 06:29; Start 12/13/16 at 19:00 Ondansetron HCl (Zofran Inj) 4 mg Q6H PRN IVP NAUSEA OR VOMITING; Start at 18:45 Naloxone HCl 0.4 mg 0.4 mg UNSCH PRN IV SEE LABEL COMMENTS; Start 12/13/16 at 18 :45 Aztreonam/Sodium Chloride (Azactam Inj/NS Inj) 100 ml @ 200 mls/hr Q8H IV Last administered on 12/16/16 00:54; Start 12/14/16 at 02:00; Stop 12/16/16 at 10: 08; Status DC Aspirin (Ecotrin Ec) 162 mg DAILY PO Last administered on 12/17/16 08:01; Start 12/14/16 at 09:00 Acetaminophen (Tylenol) 650 mg ONCE ONCE PO Last administered on 12/16/16 07: 08; Start 12/16/16 at 07:15; Stop 12/16/16 at 07:16; Status DC Ciprofloxacin (Cipro) 250 mg Q12HR PO Last administered on 12/17/16 08:01; Start 12/16/16 at 21:00 A/P Assessment and Plan A/P 1. Encephalopathy: Resolved. Likely secondary to acute infection compounded by hypoglycemia and hypothermia, all currently resolved. Pt awake, alert and answering questions appropriately. UC with proteus. continue cipro. 2. Hypoglycemia: has resolved. 3. Elevated Trop: Trop trend stable- EKG w/ no acute changes, no c/o chest pain. Continue home ASA and statin. resume metoprolol at a lower dose; 25 mg po daily- continue to monitor BP. 4. COPD: Chronic Respiratory Failure. Stable. CXR w/ COPD, no acute findings. DuoNeb prn. 5. Total Self Care Deficit: Found by EMS to be living in horrid conditions w/ , covered in feces, unable to care for self, currently under [place] Act. psych consult appreciated and previously d/w .andrews act remains in place for now. 6. DVT Prophylaxis: SCD/Teds. palliative care consult appreciated. on DNR status. consulted case management and PT. Discharge Planning d/w case management today. DCF has been notified. awaiting psych follow-up. needs SNF placement although the patient wants to go home. dc planning in progress. Corby Fiore MD December 17, 2016 10:25
--- NOTE | 2016-12-17 12:15 | HHI.PYPN ---
Subjective Remarks Patient is seen today for psychiatric follow-up, Dr. Eldridge psychiatric assessment and plan was reviewed. Patient is found in his bed, calm, cooperative and pleasant. Patient alert, is fully oriented 3. He reports a good mood, he says that he feels much better today, his plan is to go back home and to get somebody to help him. He says that he is a and he should be able to get good home services. Also says that his son would be able to help a little bit. Patient denies depressive symptoms, he denies anxiety, he denies perceptual disturbances, maryse. He denies suicidal and homicidal ideation, he denies visual and auditory hallucinations. He his conversation patient is logical, coherent and relevant. Patient does not seem to have any gross cognitive impairment. He says that he is open to possibilities, but his wish is to go back home. Review of Systems Constitutional: DENIES: Diaphoretic episodes, Fatigue, Fever, Weight gain, Weight loss, Chills, Dizziness, Change in appetite, Night Sweats Endocrine: DENIES: Heat/cold intolerance, Polydipsia, Polyuria, Polyphagia Eyes: DENIES: Blurred vision, Diplopia, Eye inflammation, Eye pain, Vision loss , Photosensitivity, Double Vision Ears, nose, mouth, throat: DENIES: Tinnitus, Hearing loss, Vertigo, Nasal discharge, Oral lesions, Throat pain, Hoarseness, Ear Pain, Running Nose, Epistaxis, Sinus Pain, Toothache, Odynophagia Cardiovascular: DENIES: Chest pain, Palpitations, Syncope, Dyspnea on Exertion , PND, Lower Extremity Edema, Orthopnea, Claudication Gastrointestinal: DENIES: Abdominal pain, Black stools, Bloody stools, Constipation, Diarrhea, Nausea, Vomiting, Difficulty Swallowing, Anorexia Genitourinary: DENIES: Sexual dysfunction, Urinary frequency, Urinary incontinence, Urgency, Hematuria, Dysuria, Nocturia, Penile Discharge, Testicular Pain, Testicular Swelling Musculoskeletal: DENIES: Joint pain, Muscle aches, Stiffness, Joint Swelling, Back pain, Neck pain Integumentary: DENIES: Abnormal pigmentation, Nail changes, Pruritus, Rash Hematologic/lymphatic: DENIES: Bruising, Lymphadenopathy Immunologic/allergic: DENIES: Eczema, Urticaria Objective Alert: Yes [place]: Person, Place, Situation Mood: Calm Affect: Appropriate Memory Intact: Immediate, Recent, Remote Hallucinations: Other (he denies) Delusions: No Delusion Type: Other (none elicited) Suicidal: Ideation (he denies) Homicidal: Ideation (he denies) Insight/Judgment Fair Labs Date/Time Procedure Status Source Growth 12/13/16 16:30 Urine Culture - Final Complete Urine Catheterized Urine Proteus Mirabilis 12/13/16 16:00 Aerobic Blood Culture - Preliminary Resulted Blood Peripheral NO GROWTH IN 4 DAYS 12/13/16 16:00 Anaerobic Blood Culture - Preliminary Resulted Blood Peripheral NO GROWTH IN 4 DAYS Vitals/IOs Vital Signs Date Time Temp Pulse Resp B/P Pulse Ox O2 Delivery O2 Flow Rate FiO2 12/17/16 08:05 Nasal Cannula 2.00 21 12/17/16 08:00 96.2 83 20 141/69 12/17/16 04:17 98 Intake and Output 12/16/16 12/16/16 12/16/16 07:59 15:59 23:59 Intake Total 766 ml 526 ml 60 ml Output Total 700 ml 300 ml Balance 766 ml -174 ml -240 ml Assessment & Plan Problem List: (1) Psychological factors affecting medical condition Assessment & Plan: Patient does not present any evidence of depression, anxiety , maryse or psychosis. He is oriented 3, without any gross cognitive impairment present. He is logical, coherent and relevant in his conversation. At the moment of this evaluation there is not psychiatric contraindication for the patient to participate in his discharge plan. Patient is open to discuss SNF vs home health aid. DCF is involved. ICD Code: F54 Assessment & Plan Estimated LOS: days Justification for Cont. Inpt. Patient does not meet criteria for psychiatric admission. Kyle Wiley MD December 17, 2016 12:15
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
[2016-12-17] MEDS: PRAVASTATIN SOD 80 MG TAB PO SCH (20:27)
[2016-12-18] VITALS (9 sets, daily range): BP systolic 99–129; BP diastolic 52–73; PULSE 68–83; RESP 15–21; TEMP 95.6–98.6; O2SAT 95–100
[2016-12-18] MEDS: CIPROFLOXACIN 250 MG TAB PO SCH ×2 (08:09→21:55)
[2016-12-18] MEDS: METOPROLOL TARTRATE 25 MG TAB PO SCH (08:09)
[2016-12-18] MEDS: SODIUM CHLOR 0.9% 1000 ML INJ 1,000 ML IV SCH (08:09)
[2016-12-18] MEDS: ASPIRIN EC 81 MG TABEC PO SCH (08:09)
--- NOTE | 2016-12-18 08:28 | HHI.PR ---
Subjective Remarks slightly lethargic today. on three liters of oxygen via N/C. denies pain. no fever. Objective Vitals Vital Signs Date Time Temp Pulse Resp B/P Pulse Ox O2 Delivery O2 Flow Rate FiO2 12/18/16 04:00 96.3 76 16 110/60 99 12/18/16 00:00 95.9 71 15 103/54 99 12/17/16 23:20 Nasal Cannula 3.00 12/17/16 20:27 Nasal Cannula 2.00 12/17/16 20:00 96.6 80 16 127/61 93 12/17/16 20:00 75 12/17/16 16:00 98.5 80 20 151/74 92 12/17/16 14:49 89 100 12/17/16 14:00 96.1 151/69 I/O 12/17/16 12/17/16 12/17/16 12/18/16 12/18/16 12/18/16 07:00 15:00 23:00 07:00 15:00 23:00 Intake Total 1405 ml 1147 ml 120 ml Output Total 950 ml 650 ml Balance 1405 ml 197 ml 120 ml -650 ml Intake Oral 600 ml 120 ml IV Total 1405 ml 547 ml Output Urine Total 950 ml 650 ml Result Diagram: 12/16/16 0611 12/14/16 0348 Imaging Last Impressions Chest X-Ray 12/13/16 1529 Signed Impressions: Service Date/Time: December 15:34 - CONCLUSION: Hyperinflation suggesting COPD. Chronic changes involving the lungs and pleura are stable. No acute infiltrate or effusion. Brandon Frost Jr., MD Objective Remarks GENERAL: elderly male, in no apparent distress. CARDIOVASCULAR: Regular rate and regular rhythm without murmurs, gallops, or rubs. RESPIRATORY: Clear to auscultation. Breath sounds equal bilaterally. No wheezes , rales, or rhonchi. GASTROINTESTINAL: Abdomen soft, non-tender, nondistended. Normal, active bowel sounds MUSCULOSKELETAL: Extremities without clubbing, cyanosis, or edema. NEURO: Alert & Oriented x4 to person, place, time, situation. Moves all ext x4 Procedures none Medications and IVs Current Medications Sodium Chloride 2 ml 2 ml UNSCH PRN IVF FLUSH AFTER USING IV ACCESS; Start 12/13 at 15:30 Sodium Chloride (NS 500 ml Inj) 500 ml @ 500 mls/hr BOLUS ONCE IV Last administered on 12/13/16 15:55; Start 12/13/16 at 15:45; Stop 12/13/16 at 16:44; Status DC Dextrose 50 ml 50 ml NOW ONCE IV PUSH Last administered on 12/13/16 16:18; Start 12/13/16 at 16:15; Stop 12/13/16 at 16:16; Status DC Aztreonam 1000 mg/ Sodium Chloride 100 ml @ 200 mls/hr ONCE ONCE IV Last administered on 12/13/16 18:40; Start 12/13/16 at 17:30; Stop 12/13/16 at 17:59; Status DC Sodium Chloride (NS 500 ml Inj) 500 ml @ 500 mls/hr BOLUS ONCE IV Last administered on 12/13/16 18:41; Start 12/13/16 at 17:30; Stop 12/13/16 at 18:29; Status DC Aspirin 325 mg 325 mg ONCE ONCE PO Last administered on 12/13/16 18:39; Start 12/13/16 at 17:45; Stop 12/13/16 at 17:46; Status DC Sodium Chloride 500 ml @ 500 mls/hr BOLUS ONCE IV Last administered on 19:33; Start 12/13/16 at 18:30; Stop 12/13/16 at 19:29; Status DC Sodium Chloride (NS 1000 ml Inj) 1,000 ml @ 70 mls/hr [id number] IV Last administered on 12/18/16 08:09; Start 12/13/16 at 19:00 Ondansetron HCl (Zofran Inj) 4 mg Q6H PRN IVP NAUSEA OR VOMITING; Start at 18:45 Naloxone HCl 0.4 mg 0.4 mg UNSCH PRN IV SEE LABEL COMMENTS; Start 12/13/16 at 18 :45 Aztreonam/Sodium Chloride (Azactam Inj/NS Inj) 100 ml @ 200 mls/hr Q8H IV Last administered on 12/16/16 00:54; Start 12/14/16 at 02:00; Stop 12/16/16 at 10: 08; Status DC Aspirin (Ecotrin Ec) 162 mg DAILY PO Last administered on 12/18/16 08:09; Start 12/14/16 at 09:00 Acetaminophen (Tylenol) 650 mg ONCE ONCE PO Last administered on 12/16/16 07: 08; Start 12/16/16 at 07:15; Stop 12/16/16 at 07:16; Status DC Ciprofloxacin (Cipro) 250 mg Q12HR PO Last administered on 12/18/16 08:09; Start 12/16/16 at 21:00 Metoprolol Tartrate (Lopressor) 25 mg DAILY PO Last administered on 12/18/16 08 :09; Start 12/18/16 at 09:00 Pravastatin Sodium (Pravachol) 80 mg HS PO Last administered on 12/17/16 20:27 ; Start 12/17/16 at 21:00 A/P Assessment and Plan A/P 1. Encephalopathy: Resolved. Likely secondary to acute infection compounded by hypoglycemia and hypothermia, all currently resolved. UC with proteus. continue cipro. 2. Hypoglycemia: has resolved. 3. Elevated Trop likely due to renal insufficiency: Trop trend stable- EKG w/ no acute changes, no c/o chest pain. Continue home ASA and statin. resume metoprolol at a lower dose; 25 mg po daily- continue to monitor BP. 4. COPD: Chronic Respiratory Failure. Stable. CXR w/ COPD, no acute findings. DuoNeb prn. - on home oxygen. 5. Total Self Care Deficit: Found by EMS to be living in horrid conditions w/ , covered in feces, unable to care for self. psych f/u appreciated; the patient does not meet the criteria for inpatient admission. 6. DVT Prophylaxis: SCD/Teds. palliative care follow-up appreciated. on DNR status. consulted case management and PT. Discharge Planning dc to SNF tomorrow if stable. Corby Fiore MD December 18, 2016 08:28
[2016-12-18] MEDS ORDERED: SODIUM CHLOR 0.9% 1000 ML INJ 1,000 ML IV ONE (19:00)
[2016-12-18] MEDS: PRAVASTATIN SOD 80 MG TAB PO SCH (21:55)
[2016-12-19 00:21] VITALS: BP 113/58; PULSE 81; RESP 22; TEMP 98.1; O2SAT 95
[2016-12-19 04:33] VITALS: BP 102/57; PULSE 78; RESP 18; TEMP 97.8; O2SAT 97
[2016-12-19 07:58] VITALS: O2SAT 92
[2016-12-19 08:00] VITALS: BP 110/55; PULSE 74; RESP 18; TEMP 98; O2SAT 94
[2016-12-19] MEDS: CIPROFLOXACIN 250 MG TAB PO SCH (08:23)
[2016-12-19] MEDS: ASPIRIN EC 81 MG TABEC PO SCH (08:23)
[2016-12-19] MEDS: METOPROLOL TARTRATE 25 MG TAB PO SCH (08:24)
--- NOTE | 2016-12-19 08:27 | HHI.PR ---
Subjective Remarks in no acute distress. awake and more alert today. no complaints. d/w the RN and no acute issues over night. Objective Vitals Vital Signs Date Time Temp Pulse Resp B/P Pulse Ox O2 Delivery O2 Flow Rate FiO2 12/19/16 07:58 92 Nasal Cannula 3.00 12/19/16 04:33 97.8 78 18 102/57 97 12/19/16 00:21 98.1 81 22 113/58 95 12/18/16 21:55 Nasal Cannula 2.00 21 12/18/16 20:04 97.8 72 21 99/52 95 12/18/16 20:00 76 12/18/16 17:32 97 Nasal Cannula 3.00 12/18/16 16:00 96.4 70 20 102/56 97 12/18/16 12:00 95.6 68 20 110/73 100 12/18/16 11:49 97 Nasal Cannula 3.00 I/O 12/18/16 12/18/16 12/18/16 12/19/16 12/19/16 12/19/16 06:59 14:59 22:59 06:59 14:59 22:59 Intake Total 240 ml 1070 ml Output Total 650 ml 950 ml Balance -650 ml 240 ml 120 ml Intake Oral 240 ml 1070 ml Output Urine Total 650 ml 950 ml # Bowel Movements 0 Result Diagram: 12/16/16 0611 Imaging Last Impressions Chest X-Ray 12/13/16 1529 Signed Impressions: Service Date/Time: December 15:34 - CONCLUSION: Hyperinflation suggesting COPD. Chronic changes involving the lungs and pleura are stable. No acute infiltrate or effusion. Brandon Frost Jr., MD Objective Remarks GENERAL: elderly male, in no apparent distress. CARDIOVASCULAR: Regular rate and regular rhythm without murmurs, gallops, or rubs. RESPIRATORY: Clear to auscultation. Breath sounds equal bilaterally. No wheezes , rales, or rhonchi. GASTROINTESTINAL: Abdomen soft, non-tender, nondistended. Normal, active bowel sounds MUSCULOSKELETAL: Extremities without clubbing, cyanosis, or edema. NEURO: Alert & Oriented x4 to person, place, time, situation. Moves all ext x4 Procedures none Medications and IVs Current Medications Sodium Chloride 2 ml 2 ml UNSCH PRN IVF FLUSH AFTER USING IV ACCESS; Start 12/13 at 15:30 Sodium Chloride (NS 500 ml Inj) 500 ml @ 500 mls/hr BOLUS ONCE IV Last administered on 12/13/16 15:55; Start 12/13/16 at 15:45; Stop 12/13/16 at 16:44; Status DC Dextrose 50 ml 50 ml NOW ONCE IV PUSH Last administered on 12/13/16 16:18; Start 12/13/16 at 16:15; Stop 12/13/16 at 16:16; Status DC Aztreonam 1000 mg/ Sodium Chloride 100 ml @ 200 mls/hr ONCE ONCE IV Last administered on 12/13/16 18:40; Start 12/13/16 at 17:30; Stop 12/13/16 at 17:59; Status DC Sodium Chloride (NS 500 ml Inj) 500 ml @ 500 mls/hr BOLUS ONCE IV Last administered on 12/13/16 18:41; Start 12/13/16 at 17:30; Stop 12/13/16 at 18:29; Status DC Aspirin 325 mg 325 mg ONCE ONCE PO Last administered on 12/13/16 18:39; Start 12/13/16 at 17:45; Stop 12/13/16 at 17:46; Status DC Sodium Chloride 500 ml @ 500 mls/hr BOLUS ONCE IV Last administered on 19:33; Start 12/13/16 at 18:30; Stop 12/13/16 at 19:29; Status DC Sodium Chloride (NS 1000 ml Inj) 1,000 ml @ 70 mls/hr [id number] IV Last administered on 12/18/16 08:09; Start 12/13/16 at 19:00; Stop 12/18/16 at 08:30; Status DC Ondansetron HCl (Zofran Inj) 4 mg Q6H PRN IVP NAUSEA OR VOMITING; Start at 18:45 Naloxone HCl 0.4 mg 0.4 mg UNSCH PRN IV SEE LABEL COMMENTS; Start 12/13/16 at 18 :45 Aztreonam/Sodium Chloride (Azactam Inj/NS Inj) 100 ml @ 200 mls/hr Q8H IV Last administered on 12/16/16 00:54; Start 12/14/16 at 02:00; Stop 12/16/16 at 10: 08; Status DC Aspirin (Ecotrin Ec) 162 mg DAILY PO Last administered on 12/18/16 08:09; Start 12/14/16 at 09:00 Acetaminophen (Tylenol) 650 mg ONCE ONCE PO Last administered on 12/16/16 07: 08; Start 12/16/16 at 07:15; Stop 12/16/16 at 07:16; Status DC Ciprofloxacin (Cipro) 250 mg Q12HR PO Last administered on 12/18/16 21:55; Start 12/16/16 at 21:00 Metoprolol Tartrate (Lopressor) 25 mg DAILY PO Last administered on 12/18/16 08 :09; Start 12/18/16 at 09:00 Pravastatin Sodium 80 mg 80 mg HS PO Last administered on 12/18/16 21:55; Start 12/17/16 at 21:00 Sodium Chloride (NS 1000 ml Inj) 1,000 ml @ 50 mls/hr Q20H ONCE IV ; Start 12/18 at 19:00; Stop 12/19/16 at 14:59 A/P Assessment and Plan A/P 1. Encephalopathy: Resolved. Likely secondary to acute infection compounded by hypoglycemia and hypothermia, all currently resolved. UC with proteus. continue cipro. 2. Hypoglycemia: has resolved. 3. Elevated Trop likely due to renal insufficiency: Trop trend stable- EKG w/ no acute changes, no c/o chest pain. Continue home ASA and statin. 4. COPD: Chronic Respiratory Failure. Stable. CXR w/ COPD, no acute findings. DuoNeb prn. - on home oxygen. 5. Total Self Care Deficit: Found by EMS to be living in horrid conditions w/ , covered in feces, unable to care for self. psych f/u appreciated; the patient does not meet the criteria for inpatient admission. 6.history of bladder cancer 7.hypertension; BP on low side- hold metoprolol for now- f/u as outpatient. palliative care follow-up appreciated. on DNR status. consulted case management and PT. Discharge Planning dc to SNF when arrangements made. see med list. f/u with pcp. d/w the patient and RN. previously d/w the case management. time spent 35 min. Corby Fiore MD December 19, 2016 08:27 Corby Fiore MD December 19, 2016 08:27
--- NOTE | 2016-12-19 08:29 | HHI.DS ---
Discharge Summary Admission Date December 13, 2016 at 18:20 Discharge Date: December 19, 2016 Admitting Diagnosis UTI, generalized weakness (1) Encephalopathy ICD Code: G93.40 Diagnosis: Principal (2) UTI (urinary tract infection) ICD Code: N39.0 Diagnosis: Principal (3) Hypoglycemia ICD Code: E16.2 Diagnosis: Principal (4) Elevated troponin I level ICD Code: R74.8 Diagnosis: Secondary (5) COPD (chronic obstructive pulmonary disease) ICD Code: J44.9 Diagnosis: Secondary (6) Total self-care deficit ICD Code: R41.89 Diagnosis: Principal Procedures none Brief History - From Admission This is an 89-year-old male with a PMH of HTN, CAD and Bladder CA who was brought to the ER by EMS under [place] [facility] for altered mental status and inability to care for self. Per report, both patient and found in their apparent confused, in horrid conditions, wearing only a diaper and covered in feces. currently under [place] as well. Upon EMS arrival, pt noted to be hypothermic w/ Temp 96.1 and hypoglycemic w/ BS 14, s/p D50, now improved. Repeat Temp 97.7, BS 68. Pt currently awake and alert, answering questions. Reports he needed to take to doctor, however was too weak so he called Taxi. escort car driver arrived at their home and called EMS after finding them in horrid conditions. WBC normal, elevated neutrophil count. Creatinine 1.75, previously 1.48 on 06/21/16. CPK 325. Troponin 0.13. EKG with no acute ST changes. UA positive for UTI. CXR with hyperinflation suggesting COPD, no acute findings. S/p Azactam in ER in addition to Blood/Urine cultures. CBC/BMP: 12/16/16 0611 Imaging Last Impressions Chest X-Ray 12/13/16 1529 Signed Impressions: Service Date/Time: December 15:34 - CONCLUSION: Hyperinflation suggesting COPD. Chronic changes involving the lungs and pleura are stable. No acute infiltrate or effusion. Brandon Frost Jr., MD PE at Discharge GENERAL: elderly male, in no apparent distress. CARDIOVASCULAR: Regular rate and regular rhythm without murmurs, gallops, or rubs. RESPIRATORY: Clear to auscultation. Breath sounds equal bilaterally. No wheezes , rales, or rhonchi. GASTROINTESTINAL: Abdomen soft, non-tender, nondistended. Normal, active bowel sounds MUSCULOSKELETAL: Extremities without clubbing, cyanosis, or edema. NEURO: Alert & Oriented x4 to person, place, time, situation. Moves all ext x4 Hospital Course 1. Encephalopathy: Resolved. Likely secondary to acute infection compounded by hypoglycemia and hypothermia, all currently resolved. UC with proteus. continue cipro. 2. Hypoglycemia: has resolved. 3. Elevated Trop likely due to renal insufficiency: Trop trend stable- EKG w/ no acute changes, no c/o chest pain. Continue home ASA and statin. resumed metoprolol at a lower dose; 25 mg po daily- continue to monitor BP. 4. COPD: Chronic Respiratory Failure. Stable. CXR w/ COPD, no acute findings. DuoNeb prn. - on home oxygen. 5. Total Self Care Deficit: Found by EMS to be living in horrid conditions w/ , covered in feces, unable to care for self. psych f/u appreciated; the patient does not meet the criteria for inpatient admission. 6.history of bladder cancer and chronic renal insufficiency- f/u as outpatient 7.hypertension; BP on low side- hold metoprolol for now- f/u as outpatient. Pt Condition on Discharge: Stable Discharge Disposition: Discharge to SNF Discharge Time: > 30 minutes Discharge Instructions DIET: Follow Instructions for: Heart Healthy Diet Activities you can perform: Regular-No Restrictions Follow up Referrals: PCP Follow-up New Medications: Ciprofloxacin (Cipro) 250 Mg Tab 250 MG PO Q12HR antibiotic Days 2 Ref 0 TAB Continued Medications: Aspirin DR (Aspirin Adult Low Strength) 81 Mg Tabdr 162 MG PO DAILY TAB Simvastatin (Zocor) 40 Mg Tab 40 MG PO HS Cholesterol Management #30 Ref 0 TAB Discontinued Medications: Metoprolol Tartrate (Metoprolol Tartrate) 25 Mg Tab 25 MG PO BID #60 Ref 0 TAB Corby Fiore MD December 19, 2016 08:29
[2016-12-19] MEDS ORDERED: CIPR250T52 PO (08:35)
[2016-12-19] MEDS ORDERED: MAGNESIUM HYDROXIDE SUSP 30 ML CUP PO PRN (08:45)
[2016-12-19 12:00] VITALS: BP 107/59; PULSE 80; RESP 16; TEMP 97.6; O2SAT 94
== END 2016-12-19 14:08 | DRG 689 ==
LOC: NEPC 14:28 → NEDA 18:20 → N06A 19:54 → HOCB 12-14 12:20
PROVIDERS: ADMIT Internal Medicine; ATTEND Internal Medicine
DX: N39.0 Urinary tract infection, site not specified (principal); G93.40 Encephalopathy, unspecified; N17.9 Acute kidney failure, unspecified; J96.10 Chronic respiratory failure, unspecified whether with hypoxia or hypercapnia; E46 Unspecified protein-calorie malnutrition; R64 Cachexia; Z68.1 Body mass index [BMI] 19.9 or less, adult; J44.9 Chronic obstructive pulmonary disease, unspecified; I10 Essential (primary) hypertension; E78.5 Hyperlipidemia, unspecified; I25.10 Atherosclerotic heart disease of native coronary artery without angina pectoris; E16.2 Hypoglycemia, unspecified; R68.0 Hypothermia, not associated with low environmental temperature; F43.20 Adjustment disorder, unspecified; Z95.1 Presence of aortocoronary bypass graft; Z66 Do not resuscitate
CPT/HCPCS: 71010; 80053; 81001; 82550; 82552; 83605; 83735; 84484; 85025; 87040; 87077; 87086; 87186; 93005; 96361; 96374; J7030; J7040

== ENCOUNTER 2017-01-09 19:13 | Emergency (ER) | payer MEDICARE, BC ==
[~2017-01-09] VITALS: Ht 177.8 cm; Wt 50.0 kg
[~2017-01-09 19:13] MED LIST changes: +ASPI1TAB91 PO; -ASPI81 PO; +CIPR250T52 PO; -CIPR500T4 PO; -METO25 PO; -PRIN5TAB PO
[2017-01-09] MEDS ORDERED: SODIUM CHLOR 0.9% 1000 ML INJ 1,000 ML IV SCH (19:32)
--- NOTE | 2017-01-09 19:39 | PD ---
HPI Chief Complaint: altered mental status Time Seen by Provider: 19:32 Travel History International Travel<30 days: No Contact w/Intl Traveler<30days: No Traveled to known affect area: No History of Present Illness HPI The patient is a 89-year-old male who [facility] for altered mental status. According to EMS the patient's normal GCS is 14, the patient was noted to have a GCS of 3 earlier today with poor respiratory function. The patient is currently nonverbal, does not open his eyes or follow commands. He will withdraw to pain. The patient does have a recent DNR with his paperwork that has been confirmed via EMR after palliative care discussed the patient with his 3 living children. The patient is unable to provide any further information. PFSH Past Medical History Hx Anticoagulant Therapy: Yes (162 ASA ) Cancer: Yes (BLADDER CA) Cardiovascular Problems: Yes (CABG X4) High Cholesterol: Yes Coronary Artery Disease: Yes Diabetes: No Diminished Hearing: No Hypertension: Yes Immunizations Current: Yes Past Surgical History Coronary Artery Bypass Graft: Yes (TRIPLE BYPASS IN 2002) Hysterectomy: Yes Other Surgery: Yes (BLADDER REMOVED DUE TO CA IN 2000 - NO CHEMO OR RADIATION AFTER) Social History Alcohol Use: No Tobacco Use: No (FORMER) Substance Use: No Allergies-Medications (Allergen,Severity, Reaction): Coded Allergies: Sulfa (Verified Allergy, Severe, 04/28/16) SULFA Penicillin (Verified Allergy, Unknown, PT UNAWARE OF REACTION - STATES " IT MAKES ME SICK", 12/13/16) Reported Meds & Prescriptions Reported Meds & Active Scripts Active Cipro (Ciprofloxacin HCl) 250 Mg Tab 250 Mg PO Q12HR 2 Days Reported Zocor (Simvastatin) 40 Mg Tab 40 Mg PO HS Aspirin Adult Low Strength (Aspirin) 81 Mg Tabdr 162 Mg PO DAILY Review of Systems ROS Limitations: Clinical Condition, Altered Mental Status Except as stated in HPI: all other systems reviewed are Neg Neurologic: Positive: Change in Mentation Physical Exam Exam Limitations: Clinical Condition, Altered Mental Status, Poor Historian Narrative GENERAL: Eyes closed, nonverbal, 89-year-old male with poor respiratory function who appears generally malnourished. SKIN: Focused skin assessment warm/dry. Poor skin turgor. HEAD: Atraumatic. Normocephalic. EYES: Pupils equal and round. 2 mm bilateral. ENT: No nasal bleeding or discharge. Dry mucous membranes. NECK: Trachea midline. No JVD. CARDIOVASCULAR: Regular rate and rhythm. No murmur appreciated. Heart rate in the 80s. RESPIRATORY: No accessory muscle use. Rhonchi in the base bilateral. GASTROINTESTINAL: Abdomen soft, non-tender, nondistended. Urostomy in place. MUSCULOSKELETAL: Thin extremities, no obvious deformities. Small ulcer on the left heel. NEUROLOGICAL: Eyes closed, nonverbal, withdraws to painful stimuli. Does not follow commands. PSYCHIATRIC: Unable to obtain. Data Data Last Documented VS Vital Signs Date Time Temp Pulse Resp B/P Pulse Ox O2 Delivery O2 Flow Rate FiO2 01/09/17 21:28 76 16 126/71 100 Nasal Cannula 3 01/09/17 19:49 98.2 Orders Electrocardiogram (01/09/17 19:32) Complete Blood Count With Diff (01/09/17 19:32) Comprehensive Metabolic Panel (01/09/17 19:32) Creatine Kinase (Cpk) (01/09/17 19:32) Prothrombin Time / Inr (Pt) (01/09/17 19:32) Act Partial Throm Time (Ptt) (01/09/17 19:32) Troponin I (01/09/17 19:32) Thyroid Stimulating Hormone (01/09/17 19:32) Urinalysis - C+S If Indicated (01/09/17 19:32) Lactic Acid Sepsis Protocol (01/09/17 19:32) Blood Culture (01/09/17 19:32) Chest, Single Ap (01/09/17 19:32) Blood Glucose (01/09/17 19:32) Ecg Monitoring (01/09/17 19:32) Iv Access Insert/Monitor (01/09/17 19:32) Oximetry (01/09/17 19:32) Sodium Chloride 0.9% Flush (Ns Flush) (01/09/17 19:45) Sodium Chlor 0.9% 1000 Ml Inj (Ns 1000 M (01/09/17 19:32) Urine Culture (01/09/17 20:16) Ciprofloxacin 400 Mg Premix (Cipro 400 M (01/09/17 21:15) Labs Laboratory Tests Test 01/09/17 20:16 White Blood Count 8.3 TH/MM3 Red Blood Count 2.97 MIL/MM3 Hemoglobin 9.5 GM/DL Hematocrit 29.2 % Mean Corpuscular Volume 98.5 FL Mean Corpuscular Hemoglobin 32.2 PG Mean Corpuscular Hemoglobin 32.7 % Concent Red Cell Distribution Width 15.0 % Platelet Count 279 TH/MM3 Mean Platelet Volume 10.0 FL Neutrophils (%) (Auto) 80.5 % Lymphocytes (%) (Auto) 8.5 % Monocytes (%) (Auto) 9.1 % Eosinophils (%) (Auto) 1.3 % Basophils (%) (Auto) 0.6 % Neutrophils # (Auto) 6.7 TH/MM3 Lymphocytes # (Auto) 0.7 TH/MM3 Monocytes # (Auto) 0.8 TH/MM3 Eosinophils # (Auto) 0.1 TH/MM3 Basophils # (Auto) 0.0 TH/MM3 CBC Comment DIFF FINAL Differential Comment Prothrombin Time 12.1 SEC Prothromb Time International 1.1 RATIO Ratio Activated Partial 30.6 SEC Thromboplast Time Urine Color YELLOW Urine Turbidity CLOUDY Urine pH 8.5 Urine Specific [place] 1.013 Urine Protein 300 mg/dL Urine Glucose (UA) NEG mg/dL Urine Ketones NEG mg/dL Urine Occult Blood NEG Urine Nitrite NEG Urine Bilirubin NEG Urine Urobilinogen LESS THAN 2.0 MG/DL Urine Leukocyte Esterase MOD Urine RBC 2 /hpf Urine WBC 36 /hpf Urine Squamous Epithelial 1 /hpf Cells Urine Triple Phosphate OCC /hpf Crystals Urine Bacteria MOD /hpf Urine Mucus FEW /lpf Microscopic Urinalysis Comment CATH-CULTURE IND Sodium Level 140 MEQ/L Potassium Level 4.4 MEQ/L Chloride Level 102 MEQ/L Carbon Dioxide Level 36.2 MEQ/L Anion Gap 2 MEQ/L Blood Urea Nitrogen 25 MG/DL Creatinine 1.05 MG/DL Estimat Glomerular Filtration 67 ML/MIN Rate Random Glucose 92 MG/DL Lactic Acid Level 0.9 mmol/L Calcium Level 8.7 MG/DL Total Bilirubin 0.3 MG/DL Aspartate Amino Transf 40 U/L (AST/SGOT) Alanine Aminotransferase 28 U/L (ALT/SGPT) Alkaline Phosphatase 102 U/L Total Creatine Kinase 52 U/L Troponin I 0.29 NG/ML Total Protein 7.9 GM/DL Albumin 2.0 GM/DL Thyroid Stimulating Hormone 1.520 uIU/ML 3rd Gen [facility] Medical Decision Making Medical Screen Exam Complete: Yes Emergency Medical Condition: Yes Medical Record Reviewed: Yes Interpretation(s) EKG reveals normal sinus rhythm with a rate 80. Q wave noted in lead V1 and V2. Laboratory Tests Test 01/09/17 20:16 White Blood Count 8.3 TH/MM3 Red Blood Count 2.97 MIL/MM3 Hemoglobin 9.5 GM/DL Hematocrit 29.2 % Mean Corpuscular Volume 98.5 FL Mean Corpuscular Hemoglobin 32.2 PG Mean Corpuscular Hemoglobin 32.7 % Concent Red Cell Distribution Width 15.0 % Platelet Count 279 TH/MM3 Mean Platelet Volume 10.0 FL Neutrophils (%) (Auto) 80.5 % Lymphocytes (%) (Auto) 8.5 % Monocytes (%) (Auto) 9.1 % Eosinophils (%) (Auto) 1.3 % Basophils (%) (Auto) 0.6 % Neutrophils # (Auto) 6.7 TH/MM3 Lymphocytes # (Auto) 0.7 TH/MM3 Monocytes # (Auto) 0.8 TH/MM3 Eosinophils # (Auto) 0.1 TH/MM3 Basophils # (Auto) 0.0 TH/MM3 CBC Comment DIFF FINAL Differential Comment Prothrombin Time 12.1 SEC Prothromb Time International 1.1 RATIO Ratio Activated Partial 30.6 SEC Thromboplast Time Urine Color YELLOW Urine Turbidity CLOUDY Urine pH 8.5 Urine Specific [place] 1.013 Urine Protein 300 mg/dL Urine Glucose (UA) NEG mg/dL Urine Ketones NEG mg/dL Urine Occult Blood NEG Urine Nitrite NEG Urine Bilirubin NEG Urine Urobilinogen LESS THAN 2.0 MG/DL Urine Leukocyte Esterase MOD Urine RBC 2 /hpf Urine WBC 36 /hpf Urine Squamous Epithelial 1 /hpf Cells Urine Triple Phosphate OCC /hpf Crystals Urine Bacteria MOD /hpf Urine Mucus FEW /lpf Microscopic Urinalysis Comment CATH-CULTURE IND Sodium Level 140 MEQ/L Potassium Level 4.4 MEQ/L Chloride Level 102 MEQ/L Carbon Dioxide Level 36.2 MEQ/L Anion Gap 2 MEQ/L Blood Urea Nitrogen 25 MG/DL Creatinine 1.05 MG/DL Estimat Glomerular Filtration 67 ML/MIN Rate Random Glucose 92 MG/DL Lactic Acid Level 0.9 mmol/L Calcium Level 8.7 MG/DL Total Bilirubin 0.3 MG/DL Aspartate Amino Transf 40 U/L (AST/SGOT) Alanine Aminotransferase 28 U/L (ALT/SGPT) Alkaline Phosphatase 102 U/L Total Creatine Kinase 52 U/L Troponin I 0.29 NG/ML Total Protein 7.9 GM/DL Albumin 2.0 GM/DL Thyroid Stimulating Hormone 1.520 uIU/ML 3rd Gen Chest x-ray reveals no acute changes. Differential Diagnosis Differential diagnosis includes end-of-life care, sepsis, UTI, dehydration, hyponatremia, hypernatremia, aspiration pneumonia, subdural hemorrhage. Narrative Course IV was established, labs are drawn and sent, and the patient was placed on cardiac telemetry monitoring and continuous pulse oximetry monitoring. EKG was ordered and interpreted. Chest x-ray was obtained. UA was sent to lab. No CT the brain was performed as the patient's EMR reveals he would not want to be intubated or have any heroic measures, therefore, there'll be no surgical indications for CT to be ordered. Nursing staff will attempt to contact the penitentiary so we can talk to family members in regards to possible hospice consultation in the emergency department. The patient does have a current DNR status confirmed on EMR, therefore, the patient was not intubated, was given oxygen via nonrebreather. I had a discussion with the patient's son at bedside, after discussion, he would like the patient to continue to see received treatment, but continued to be DNR. This son states that the patient was awake and alert earlier today and reading documents at the snf facility, he is not interested in hospice care at that time, would like to see if there is a reversible condition to his father's delirium. The patient was reevaluated at 9:10 PM, the patient was now sitting upright, eyes open, talking, asking for Mountain Dew and ice cream. The patient responded to IV fluids, the son states the patient had 2 episodes of PT earlier today and may have overdone it. The patient is now asymptomatic. UA is positive, I reviewed the EMR, his last micro-was susceptible to Cipro. Therefore, the patient was administered Cipro intravenously. The patient was given a by mouth challenge at bedside. The patient was given acosta eris, he said "thank you ", the family agrees the patient looks significantly improved. The patient's troponin was elevated 0.29 , however, was elevated on his previous admission greater than 0.12. There is no significant EKG changes, patient denies any chest pain or shortness of breath , this may be a chronic troponin leak, however, he is asymptomatic. The patient is reevaluated at 10 PM, he tolerated acosta eirs without difficulty. He was sitting upright, able to converse, and watching TV. I do discussion with the patient regarding 23 hour observation versus transfer back to the snf facility, he would prefer to be transferred back to snf facility continue rehabilitation. Therefore, patient will be transferred back with a prescription for Cipro. Cultures are pending. Diagnosis Primary Impression: UTI (urinary tract infection) Qualified Code: N39.0 - Urinary tract infection without hematuria, site unspecified Additional Impressions: Generalized weakness Elevated troponin I level Patient Instructions: General Instructions Additional Instructions: Cipro as directed. Plenty fluids to stay hydrated. Follow-up with her primary physician. Return if symptoms worsen or progress. Med/Other Pt SpecificInfo: Prescription(s) given Scripts Ciprofloxacin 500 Mg Vss499 Mg PO BID 7 Days Ref 0 Prov:Dallas Melton MD 01/09/17 Disposition: 03 DISCHARGE TO SNF Condition: Stable Dallas Melton MD January 09, 2017 19:39
[2017-01-09] MEDS ORDERED: SODIUM CHLORIDE 0.9% FLUSH 5 ML FLUSH IV FLUSH PRN (19:45)
[2017-01-09 19:49] VITALS: BP 126/74; PULSE 68; RESP 24; TEMP 98.2; O2SAT 100
--- NOTE | 2017-01-09 20:29 | RADRPT ---
EXAM DATE/TIME: 01/09/2017 20:00 [facility] COMPARISON: CHEST SINGLE AP, December 13, 2016, 15:34. INDICATIONS : Short of breath. MEDICAL HISTORY : Hypertension. Coronary artery disease. SURGICAL HISTORY : CABG. ENCOUNTER: Initial ACUITY: 1 day PAIN SCORE: Non-responsive. LOCATION: Bilateral chest FINDINGS: A single portable frontal view the chest shows chronic interstitial changes. No acute infiltrate or e ffusion observed. Heart remains mildly enlarged. Median sternotomy wires and coronary markers noted. Apical pleural thickening is stable. CONCLUSION: Stable chronic changes. No acute infiltrate. Brandon Frost Jr., MD on January 09, 2017 at 20:25 Board Certified Radiologist. This report was verified electronically.
[2017-01-09 20:36] LABS: AUTOMATED NEUTROPHIL # 6.7 TH/MM3 (1.8-7.7); BASOPHIL % 0.6 % (0.0-2.0); EOSINOPHIL # 0.1 TH/MM3 (0-0.4); EOSINOPHIL % 1.3 % (0.0-4.0); HEMATOCRIT 29.2 % (39.0-51.0); HEMO FLAGS DIFF FINAL; LYMPH % 8.5 % (9.0-44.0); LYMPHOCYTE # 0.7 TH/MM3 (1.0-4.8); MEAN CELL VOLUME 98.5 FL (80.0-100.0); MEAN CORPUSCULAR HEMOGLOBIN 32.2 PG (27.0-34.0); MEAN CORPUSCULAR HGB CONC 32.7 % (32.0-36.0); MONO % 9.1 % (0.0-8.0); NEUT % 80.5 % (16.0-70.0); PLATELET COUNT 279 TH/MM3 (150-450); RED BLOOD COUNT 2.97 MIL/MM3 (4.50-5.90); WHITE BLOOD COUNT 8.3 TH/MM3 (4.0-11.0)
[2017-01-09 20:47] LABS: APTT (PATIENT) 30.6 SEC (24.3-30.1); INTERNATIONAL NORMALIZED RATIO 1.1 RATIO; PROTHROMBIN TIME - PATIENT 12.1 SEC (9.8-11.6)
[2017-01-09 20:49] LABS: BLOOD, URINE NEG (NEG); GLUCOSE,URINE NEG (NEG); KETONE, URINE NEG (NEG); MUCUS URINE FEW /lpf (OCC); NITRITE,URINE NEG (NEG); PH, URINE 8.5 (5.0-8.5); SQUAMOUS EPITHELIAL CELL URINE 1 /hpf (0-5); TRIPLE PHOSPHATE CRYSTAL,URINE OCC /hpf; URINE COLOR YELLOW (YELLW/STRAW)
[2017-01-09 20:50] LABS: BACTERIA, URINE MOD /hpf; COMMENT (UR) CATH-CULTURE IND; CULTURE IF INDICATED CATH CULTURE IND
[2017-01-09 21:02] LABS: ALT (GPT) 28 U/L (12-78)
[2017-01-09 21:06] LABS: ANION GAP 2 MEQ/L (5-15); AST (GOT) 40 U/L (15-37); BICARBONATE 36.2 MEQ/L (21.0-32.0); BLOOD UREA NITROGEN 25 MG/DL (7-18); CHLORIDE 102 MEQ/L (98-107); GLOMERULAR FILTRATION RATE 67 ML/MIN (>89); SODIUM (NA) 140 MEQ/L (136-145)
[2017-01-09 21:11] LABS: POTASSIUM 4.4 MEQ/L (3.5-5.1)
[2017-01-09 21:13] LABS: ALKALINE PHOSPHATASE 102 U/L (45-117); TOTAL BILIRUBIN ADULT 0.3 MG/DL (0.2-1.0)
[2017-01-09 21:14] LABS: CREATINE KINASE 52 U/L (39-308)
[2017-01-09] MEDS ORDERED: CIPROFLOXACIN 400 MG PREMIX 200 ML IV ONE (21:15)
[2017-01-09 21:28] VITALS: BP 126/71; PULSE 76; RESP 16; O2SAT 100
[2017-01-09] MEDS ORDERED: CIPR500T2 PO (22:04)
--- NOTE | 2017-01-10 07:35 | EKG ---
Date Performed: 01/09/2017 Time Performed: 20:01:04 PTAGE: 89 years EKG: Sinus rhythm LEFT ATRIAL ENLARGEMENT LEFT ANTERIOR FASCICULAR BLOCK LEFT BUNDLE BRANCH BLOCK ABNORMAL ECG PREVIOUS TRACING : 12/13/2016 15.52 Compared to prior tracing no significant change DOCTOR: Kenny Pisano Interpretating Date/Time 01/10/2017 07:34:44
== END 2017-01-10 08:05 ==
LOC: NEPE 19:13 → NEDAMB 01-10 08:05
DX: N39.0 Urinary tract infection, site not specified (principal); B96.89 Other specified bacterial agents as the cause of diseases classified elsewhere; R53.1 Weakness; R79.89 Other specified abnormal findings of blood chemistry; R94.31 Abnormal electrocardiogram [ECG] [EKG]; I25.10 Atherosclerotic heart disease of native coronary artery without angina pectoris; I10 Essential (primary) hypertension; Z95.1 Presence of aortocoronary bypass graft; Z88.0 Allergy status to penicillin; Z85.51 Personal history of malignant neoplasm of bladder
CPT/HCPCS: 71010; 80053; 81001; 82550; 83605; 84443; 84484; 85025; 85610; 85730; 86403; 87040; 87086; 87205; 93005; 96360; 96361; 96365; 99285; J0744; J7030

== ENCOUNTER 2017-01-22 18:34 | Inpatient (IN) | payer MEDICARE, BC ==
[~2017-01-22] VITALS: Ht 177.8 cm; Wt 53.5 kg
[~2017-01-22 18:34] MED LIST changes: +CIPR500T2 PO
[2017-01-22 18:46] VITALS: BP 134/67; PULSE 79; RESP 16; TEMP 97.5; O2SAT 100
[2017-01-22] MEDS ORDERED: SODIUM CHLOR 0.9% 1000 ML INJ 1,000 ML IV SCH (18:56)
[2017-01-22] MEDS ORDERED: SODIUM CHLORIDE 0.9% FLUSH 5 ML FLUSH IV FLUSH PRN (19:00)
[2017-01-22 19:01] VITALS: BP 113/54; PULSE 71; RESP 18; O2SAT 97
--- NOTE | 2017-01-22 19:01 | PD ---
HPI Chief Complaint: Altered Mental Status Time Seen by Provider: 19:00 Travel History International Travel<30 days: No Contact w/Intl Traveler<30days: No Traveled to known affect area: No History of Present Illness HPI 89-year-old male with history of hypertension, CAD, CABG, COPD chronically on 2 L of oxygen, bladder cancer status post bladder removal is brought to the emergency department by EMS for evaluation of altered mental status. Patient is brought from the group home facility, per EMS report the group home facility states that he was last noted to be at his normal mental status baseline sometime yesterday afternoon. The patient is nonverbal, he is not following any commands, he does withdraw to pain. Per report from the [place] [facility] he is typically awake and alert. No history can be obtained from the patient at this time. PFSH Past Medical History Hx Anticoagulant Therapy: Yes (162 ASA ) Cancer: Yes (BLADDER CA) Cardiovascular Problems: Yes High Cholesterol: Yes Coronary Artery Disease: Yes Diabetes: No Diminished Hearing: No Hypertension: Yes Respiratory: Yes Immunizations Current: Yes Past Surgical History Coronary Artery Bypass Graft: Yes (TRIPLE BYPASS IN 2002) Hysterectomy: Yes Other Surgery: Yes (BLADDER REMOVED DUE TO CA IN 2000 - NO CHEMO OR RADIATION AFTER) Social History Alcohol Use: No Tobacco Use: No (FORMER) Substance Use: No Allergies-Medications (Allergen,Severity, Reaction): Coded Allergies: Sulfa (Verified Allergy, Severe, 01/22/17) SULFA Penicillin (Verified Allergy, Unknown, PT UNAWARE OF REACTION - STATES " IT MAKES ME SICK", 01/22/17) Reported Meds & Prescriptions Reported Meds & Active Scripts Active Ciprofloxacin (Ciprofloxacin HCl) 500 Mg Tab 500 Mg PO BID 7 Days Cipro (Ciprofloxacin HCl) 250 Mg Tab 250 Mg PO Q12HR 2 Days Reported Zocor (Simvastatin) 40 Mg Tab 40 Mg PO HS Aspirin Adult Low Strength (Aspirin) 81 Mg Tabdr 162 Mg PO DAILY Review of Systems Except as stated in HPI: all other systems reviewed are Neg Physical Exam Narrative GENERAL: Thin, frail elderly male patient in no acute distress. SKIN: Warm and dry. HEAD: Normocephalic and atraumatic. EYES: No injection, drainage, or hyphema noted. PERRLA. EOMI. ENT: No nasal drainage noted. Oropharynx is clear. NECK: Supple and the trachea is midline. CARDIOVASCULAR: Regular rate and rhythm. RESPIRATORY: Breath sounds are equal bilaterally with no accessory muscle use, wheezing, rhonchi, or crackles. GASTROINTESTINAL: Abdomen is soft, non-tender, and nondistended. MUSCULOSKELETAL: No obvious deformities, swelling, cyanosis, or ecchymosis is present throughout the upper and lower extremities. Patient has full range of motion without any signs of neurovascular compromise. NEUROLOGICAL: Lethargic. Responsive to painful stimuli only. Cranial nerves are grossly intact. Data Data Last Documented VS Vital Signs Date Time Temp Pulse Resp B/P Pulse Ox O2 Delivery O2 Flow Rate FiO2 01/22/17 19:08 16 97 Nasal Cannula 2 01/22/17 19:01 71 113/54 01/22/17 18:46 97.5 Orders Electrocardiogram (01/22/17 18:56) Complete Blood Count With Diff (01/22/17 18:56) Comprehensive Metabolic Panel (01/22/17 18:56) Creatine Kinase (Cpk) (01/22/17 18:56) Prothrombin Time / Inr (Pt) (01/22/17 18:56) Act Partial Throm Time (Ptt) (01/22/17 18:56) Troponin I (01/22/17 18:56) Urinalysis - C+S If Indicated (01/22/17 18:56) Lactic Acid Sepsis Protocol (01/22/17 18:56) Chest, Single Ap (01/22/17 18:56) Ct Brain W/O Iv Contrast(Rout) (01/22/17 18:56) Blood Glucose (01/22/17 18:56) Ecg Monitoring (01/22/17 18:56) Iv Access Insert/Monitor (01/22/17 18:56) Oximetry (01/22/17 18:56) Sodium Chloride 0.9% Flush (Ns Flush) (01/22/17 19:00) Sodium Chlor 0.9% 1000 Ml Inj (Ns 1000 M (01/22/17 18:56) Cath For Specimen (01/22/17 18:56) Ct Abd/Pel W/O Iv Contrast (01/22/17 19:37) Urine Culture (01/22/17 19:21) Metronidazole 500 Mg Inj (Flagyl 500 Mg (01/22/17 20:30) Azithromycin Inj (Zithromax Inj) (01/22/17 20:30) Aztreonam Inj (Azactam Inj) (01/22/17 20:30) Admit Order (Ed Use Only) (01/22/17 21:10) Labs Laboratory Tests Test 01/22/17 01/22/17 01/22/17 19:10 19:16 19:21 White Blood Count 8.3 TH/MM3 Red Blood Count 2.48 MIL/MM3 Hemoglobin 8.0 GM/DL Hematocrit 24.6 % Mean Corpuscular Volume 99.1 FL Mean Corpuscular Hemoglobin 32.2 PG Mean Corpuscular Hemoglobin 32.5 % Concent Red Cell Distribution Width 15.9 % Platelet Count 181 TH/MM3 Mean Platelet Volume 10.8 FL Neutrophils (%) (Auto) 85.1 % Lymphocytes (%) (Auto) 5.5 % Monocytes (%) (Auto) 8.2 % Eosinophils (%) (Auto) 0.8 % Basophils (%) (Auto) 0.4 % Neutrophils # (Auto) 7.1 TH/MM3 Lymphocytes # (Auto) 0.5 TH/MM3 Monocytes # (Auto) 0.7 TH/MM3 Eosinophils # (Auto) 0.1 TH/MM3 Basophils # (Auto) 0.0 TH/MM3 CBC Comment DIFF FINAL Differential Comment Prothrombin Time 12.1 SEC Prothromb Time International 1.1 RATIO Ratio Activated Partial 31.1 SEC Thromboplast Time Sodium Level 139 MEQ/L Potassium Level 3.7 MEQ/L Chloride Level 99 MEQ/L Carbon Dioxide Level 36.9 MEQ/L Anion Gap 3 MEQ/L Blood Urea Nitrogen 30 MG/DL Creatinine 1.07 MG/DL Estimat Glomerular Filtration 65 ML/MIN Rate Random Glucose 93 MG/DL Calcium Level 9.4 MG/DL Total Bilirubin 0.3 MG/DL Aspartate Amino Transf 52 U/L (AST/SGOT) Alanine Aminotransferase 41 U/L (ALT/SGPT) Alkaline Phosphatase 91 U/L Total Creatine Kinase 73 U/L Troponin I 0.04 NG/ML Total Protein 6.8 GM/DL Albumin 1.8 GM/DL Lactic Acid Level 0.8 mmol/L Urine Color YELLOW Urine Turbidity HAZY Urine pH 8.0 Urine Specific [place] 1.013 Urine Protein 30 mg/dL Urine Glucose (UA) NEG mg/dL Urine Ketones NEG mg/dL Urine Occult Blood SMALL Urine Nitrite NEG Urine Bilirubin NEG Urine Urobilinogen LESS THAN 2.0 MG/DL Urine Leukocyte Esterase TRACE Urine RBC 8 /hpf Urine WBC 15 /hpf Urine Bacteria FEW /hpf Urine Hyaline Casts 1 /lpf Urine Mucus FEW /lpf Microscopic Urinalysis Comment CATH-CULTURE IND [facility] Medical Decision Making Medical Screen Exam Complete: Yes Emergency Medical Condition: Yes Differential Diagnosis Urinary tract infection versus renal failure versus dehydration versus encephalopathy Narrative Course 89-year-old male is brought to the emergency department for evaluation of altered mental status. Patient is afebrile, vital signs are stable. IV access is obtained, labs drawn and sent. Patient is placed on cardiac telemetry and pulse oximetry monitoring. Patient is administered IV fluids. EKG shows sinus rhythm with no acute ST elevations or depressions. CBC shows anemia with a hemoglobin of 8.0, hematocrit 24.6. Consistent with previous lab values. CMP shows mild dehydration with a BUN of 30. Coags are unremarkable. Urinalysis shows 30 protein, small occult blood, trace leukocyte esterase, 8 red blood cells, 15 white blood cells, few bacteria, few mucus. Chest x-ray shows acute consolidation in the right midlung with chronic pleural and parenchymal scarring. When my attending physician evaluated the patient about 45 minutes after arrival and after receiving IV fluids he was noted to be more responsive and actually complaining of left lower abdominal pain. Therefore a CT of the abdomen and pelvis has been ordered and is pending. Consolidation in the right midlung is questionable for aspiration. He has remained stable and without complaint while here in the emergency department. The patient is administered IV antibiotics and will be admitted to medicine service. I discussed the case with my attending physician Dr. Hart who is aware of the patients history, physical examination findings, and treatment plan. Physician Communication Physician Communication I spoke with Dr. Perez [facility] who agrees to admit the patient to her service. Diagnosis Primary Impression: Altered mental status Qualified Code: R41.0 - Delirium Additional Impression: Pneumonia Qualified Code: J18.1 - Pneumonia of right middle lobe due to infectious organism Admitting Information Admitting Physician Requests: Admit Kareen Ball Jan 22, 2017 19:01
[2017-01-22 19:08] VITALS: RESP 16; O2SAT 97
--- NOTE | 2017-01-22 19:21 | RADRPT ---
EXAM DATE/TIME: 01/22/2017 19:15 [facility] COMPARISON: CHEST PA & LAT, April 28, 2016, 21:46. INDICATIONS : Shortness of breath. MEDICAL HISTORY : Hypertension. Coronary artery disease. SURGICAL HISTORY : CABG. ENCOUNTER: Initial ACUITY: 1 day PAIN SCORE: 0/10 LOCATION: Bilateral chest FINDINGS: Biapical pleural thickening and patchy air space opacities are again seen of both lungs, right worse on left. Right mid and upper lung infiltrate appears slightly worse in the interim. Heart size stable, upper limits of normal. Patient has had previous median sternotomy. CONCLUSION: Chronic pleural and parenchymal scarring. Acute consolidation in the right midlung. Moo Frederick MD on January 22, 2017 at 19:17 Board Certified Radiologist. This report was verified electronically.
--- NOTE | 2017-01-22 19:31 | PD ---
Physical Exam Narrative General: The patient is a well-developed, cachectic appearing male, decreased level of consciousness on arrival. Head and Neck exam: Head is normocephalic atraumatic. Eyes: Pupils are equal round and reactive to light. Nose: Midline septum with pink mucous membranes Mouth: Dentition unremarkable. Tacky mucus membranes. Posterior oropharynx is not erythematous. No tonsillar hypertrophy. Uvula midline. Airway patent. Neck: No palpable lymphadenopathy. No nuchal rigidity. No thyromegaly. Cardiovascular: Regular rate and rhythm without murmurs, gallops, or rubs. Lungs: The patient has decreased breath sounds in the left lower lung base, no wheezes , rhonchi, or crackles are audible otherwise. Abdomen: Soft, tenderness on palpation in the suprapubic and left lower quadrant of the abdomen, no other tenderness on palpation is noted. No guarding, rebound, or rigidity. Normal bowel sounds are audible. No tenderness on palpation of McBurney's point. Negative [place] sign. The patient has an ilio conduit noted in the lower aspect of the abdomen. The patient has a strong odor of urine about him, however the bag is leaking. Extremities: No clubbing, cyanosis, or edema. 2+ pulses in all 4 extremities. The patient has no deformity of his extremities noted. The patient has full range of passive motion of his extremities without any crepitus or deformity. No pain elicited. Back: No spinous process tenderness to palpation. The patient has left-sided CVA tenderness on palpation. Neurologic Exam: The patient has generalized weakness noted, however he does move all extremities equally. The patient on arrival was only responsive to painful stimulation, however on repeat evaluation he is responsive to his name and attempts to follow commands. Patient has no obvious facial asymmetry. No focal weakness. Skin Exam: No rash noted. Intact skin that is warm and dry. Data Data Last Documented VS Vital Signs Date Time Temp Pulse Resp B/P Pulse Ox O2 Delivery O2 Flow Rate FiO2 01/22/17 19:08 16 97 Nasal Cannula 2 01/22/17 19:01 71 113/54 01/22/17 18:46 97.5 Orders Electrocardiogram (01/22/17 18:56) Complete Blood Count With Diff (01/22/17 18:56) Comprehensive Metabolic Panel (01/22/17 18:56) Creatine Kinase (Cpk) (01/22/17 18:56) Prothrombin Time / Inr (Pt) (01/22/17 18:56) Act Partial Throm Time (Ptt) (01/22/17 18:56) Troponin I (01/22/17 18:56) Urinalysis - C+S If Indicated (01/22/17 18:56) Lactic Acid Sepsis Protocol (01/22/17 18:56) Chest, Single Ap (01/22/17 18:56) Ct Brain W/O Iv Contrast(Rout) (01/22/17 18:56) Blood Glucose (01/22/17 18:56) Ecg Monitoring (01/22/17 18:56) Iv Access Insert/Monitor (01/22/17 18:56) Oximetry (01/22/17 18:56) Sodium Chloride 0.9% Flush (Ns Flush) (01/22/17 19:00) Sodium Chlor 0.9% 1000 Ml Inj (Ns 1000 M (01/22/17 18:56) Cath For Specimen (01/22/17 18:56) Ct Abd/Pel W/O Iv Contrast (01/22/17 19:37) Urine Culture (01/22/17 19:21) Metronidazole 500 Mg Inj (Flagyl 500 Mg (01/22/17 20:30) Azithromycin Inj (Zithromax Inj) (01/22/17 20:30) Aztreonam Inj (Azactam Inj) (01/22/17 20:30) Admit Order (Ed Use Only) (01/22/17 21:10) Labs Laboratory Tests Test 01/22/17 01/22/17 01/22/17 19:10 19:16 19:21 White Blood Count 8.3 TH/MM3 Red Blood Count 2.48 MIL/MM3 Hemoglobin 8.0 GM/DL Hematocrit 24.6 % Mean Corpuscular Volume 99.1 FL Mean Corpuscular Hemoglobin 32.2 PG Mean Corpuscular Hemoglobin 32.5 % Concent Red Cell Distribution Width 15.9 % Platelet Count 181 TH/MM3 Mean Platelet Volume 10.8 FL Neutrophils (%) (Auto) 85.1 % Lymphocytes (%) (Auto) 5.5 % Monocytes (%) (Auto) 8.2 % Eosinophils (%) (Auto) 0.8 % Basophils (%) (Auto) 0.4 % Neutrophils # (Auto) 7.1 TH/MM3 Lymphocytes # (Auto) 0.5 TH/MM3 Monocytes # (Auto) 0.7 TH/MM3 Eosinophils # (Auto) 0.1 TH/MM3 Basophils # (Auto) 0.0 TH/MM3 CBC Comment DIFF FINAL Differential Comment Prothrombin Time 12.1 SEC Prothromb Time International 1.1 RATIO Ratio Activated Partial 31.1 SEC Thromboplast Time Sodium Level 139 MEQ/L Potassium Level 3.7 MEQ/L Chloride Level 99 MEQ/L Carbon Dioxide Level 36.9 MEQ/L Anion Gap 3 MEQ/L Blood Urea Nitrogen 30 MG/DL Creatinine 1.07 MG/DL Estimat Glomerular Filtration 65 ML/MIN Rate Random Glucose 93 MG/DL Calcium Level 9.4 MG/DL Total Bilirubin 0.3 MG/DL Aspartate Amino Transf 52 U/L (AST/SGOT) Alanine Aminotransferase 41 U/L (ALT/SGPT) Alkaline Phosphatase 91 U/L Total Creatine Kinase 73 U/L Troponin I 0.04 NG/ML Total Protein 6.8 GM/DL Albumin 1.8 GM/DL Lactic Acid Level 0.8 mmol/L Urine Color YELLOW Urine Turbidity HAZY Urine pH 8.0 Urine Specific [place] 1.013 Urine Protein 30 mg/dL Urine Glucose (UA) NEG mg/dL Urine Ketones NEG mg/dL Urine Occult Blood SMALL Urine Nitrite NEG Urine Bilirubin NEG Urine Urobilinogen LESS THAN 2.0 MG/DL Urine Leukocyte Esterase TRACE Urine RBC 8 /hpf Urine WBC 15 /hpf Urine Bacteria FEW /hpf Urine Hyaline Casts 1 /lpf Urine Mucus FEW /lpf Microscopic Urinalysis Comment [facility]ATH[facility] Medical Record Reviewed: Yes Supervised Visit with FARAZ: Yes Interpretation(s) Last Impressions Chest X-Ray 01/22/17 7145 Signed Impressions: Service Date/Time: Sunday, January 22, 2017 19:15 - CONCLUSION: Chronic pleural and parenchymal scarring. Acute consolidation in the right midlung. Moo Frederick MD Narrative Course I, Dr. Hart, have reviewed the advance practice practitioner's documentation and am in agreement, met with the patient face to face, made the diagnosis, and the medical decision making was done by me. The patient was initially evaluated by Kareen, please see her complete history and physical. *My assessment and Findings: The patient is an 89-year-old male who presents to [facility] emergency Department with a history of experiencing altered mental status that began at his longterm sometime yesterday. The patient arrives with a decreased level of consciousness. Initially he was only responsive to painful stimulation, however on repeat evaluation, the patient is noted to be responsive to his name and attempted to open his eyes. When asked if he has pain he answers yes and localizes the pain down to the left side of the pelvis. His physical exam is remarkable for left lower quadrant abdominal pain and left CVA tenderness. Laboratory studies and imaging studies have been ordered to further evaluate. During the course of the patients emergency department visit, the patients history, examination, and differential diagnosis were reviewed with the patient. The patient had [-] IV access obtained and blood work sent for analysis. The patient was initially provided normal saline 1 L IV fluid bolus. The patients laboratory studies were reviewed and remarkable for white count of 8.3, hemoglobin 8.0, last hemoglobin was noted to be 8.3. This will be monitored closely. Platelets 181, neutrophils 85.1, monocytes 8.2. CMP is remarkable for a CO2 36.9, BUN 30, GFR 65, lactic acid 0.8, AST 52, CPK 73, troponin I 0.04 and albumin 1.8, PT 12.1, INR 1.1, PTT 31.1, urinalysis shows 30 protein, small occult blood, trace leukocyte esterase, RBCs 8, 15 wbc's with few bacteria, culture indicated. Given the patient's conduit, I would hold off on treatment for urinary tract infection awaiting culture. Radiology studies were reviewed and remarkable for chronic pleural and parenchymal scarring, and acute consolidation in the right mid lung. This is suspicious for aspiration. The patient was treated with Azactam, metronidazole , and azithromycin given his penicillin allergy. CT scan of the brain showed no acute abnormality. CT scan of the abdomen and pelvis showed a very large amount of stool in the rectum, nonobstructive pattern, no perceptible acute inflammatory changes, mild hydronephrosis of both kidneys, etiology uncertain, faint stones are suspected of both kidneys but I don't see a ureteral calculus, aortoiliac atherosclerosis as noted, small effusions and patchy infiltrate with interstitial thickening seen of both visualized lung bases. The patient had an EKG done on arrival. The patient's ECG shows a sinus rhythm with occasional ventricular premature complexes, heart rate of 71, QRS duration is 137 ms with an intraventricular conduction delay, QTC 465 ms, no acute ST segment elevation or depression is noted. The patients results were discussed with the patient, including the plan of care. I explained that further testing and/ or monitoring is indicated based on the patients history, examination, and/ or laboratory findings. Therefore, I recommended admission for additional evaluation. The patient expressed understanding and was agreeable with this plan. The patient was admitted to the hospital in stable condition and [facility] Diagnosis Primary Impression: Pneumonia Qualified Code: J18.1 - Pneumonia of right middle lobe due to infectious organism Additional Impression: Altered mental status Qualified Code: R41.0 - Delirium Admitting Information Admitting Physician Requests: Admit Zoe Hart MD Jan 22, 2017 19:30
[2017-01-22 19:32] LABS: AUTOMATED NEUTROPHIL # 7.1 TH/MM3 (1.8-7.7); BASOPHIL % 0.4 % (0.0-2.0); EOSINOPHIL # 0.1 TH/MM3 (0-0.4); EOSINOPHIL % 0.8 % (0.0-4.0); HEMATOCRIT 24.6 % (39.0-51.0); HEMO FLAGS DIFF FINAL; LYMPH % 5.5 % (9.0-44.0); LYMPHOCYTE # 0.5 TH/MM3 (1.0-4.8); MEAN CELL VOLUME 99.1 FL (80.0-100.0); MEAN CORPUSCULAR HEMOGLOBIN 32.2 PG (27.0-34.0); MEAN CORPUSCULAR HGB CONC 32.5 % (32.0-36.0); MONO % 8.2 % (0.0-8.0); NEUT % 85.1 % (16.0-70.0); PLATELET COUNT 181 TH/MM3 (150-450); RED BLOOD COUNT 2.48 MIL/MM3 (4.50-5.90); RED CELL DISTRIBUTION WIDTH 15.9 % (11.6-17.2); WHITE BLOOD COUNT 8.3 TH/MM3 (4.0-11.0)
[2017-01-22 19:55] LABS: APTT (PATIENT) 31.1 SEC (24.3-30.1); INTERNATIONAL NORMALIZED RATIO 1.1 RATIO; PROTHROMBIN TIME - PATIENT 12.1 SEC (9.8-11.6)
[2017-01-22 19:57] LABS: BACTERIA, URINE FEW /hpf; BLOOD, URINE SMALL (NEG); GLUCOSE,URINE NEG (NEG); HYALINE CAST, URINE 1 /lpf (RARE); KETONE, URINE NEG (NEG); MUCUS URINE FEW /lpf (OCC); NITRITE,URINE NEG (NEG); URINE COLOR YELLOW (YELLW/STRAW)
[2017-01-22 19:58] LABS: COMMENT (UR) CATH-CULTURE IND; CULTURE IF INDICATED CATH CULTURE IND
[2017-01-22 19:59] LABS: ANION GAP 3 MEQ/L (5-15); AST (GOT) 52 U/L (15-37); BICARBONATE 36.9 MEQ/L (21.0-32.0); BLOOD UREA NITROGEN 30 MG/DL (7-18); CHLORIDE 99 MEQ/L (98-107); GLOMERULAR FILTRATION RATE 65 ML/MIN (>89); POTASSIUM 3.7 MEQ/L (3.5-5.1); SODIUM (NA) 139 MEQ/L (136-145)
[2017-01-22 20:01] LABS: ALT (GPT) 41 U/L (12-78)
[2017-01-22 20:04] LABS: ALKALINE PHOSPHATASE 91 U/L (45-117); TOTAL BILIRUBIN ADULT 0.3 MG/DL (0.2-1.0)
[2017-01-22 20:07] LABS: CREATINE KINASE 73 U/L (39-308)
[2017-01-22] MEDS ORDERED: AZTREONAM INJ 2,000 MG in SODIUM CHLORIDE 0.9% INJ 100 ML IV ONE (20:30)
[2017-01-22] MEDS ORDERED: metroNIDAZOLE 500 MG INJ 100 ML IV ONE (20:30)
[2017-01-22] MEDS ORDERED: AZITHROMYCIN INJ 500 MG in SODIUM CHLOR 0.9% 250 ML INJ 250 ML IV ONE (20:30)
--- NOTE | 2017-01-22 20:35 | RADRPT ---
EXAM DATE/TIME: 01/22/2017 20:19 [facility] COMPARISON: No previous studies available for comparison. INDICATIONS : Altered mental status. RADIATION DOSE: 37.11 CTDIvol (mGy) MEDICAL HISTORY : Cardiovascular disease. Hypertension. Carcinoma, bladder.COPD SURGICAL HISTORY : CABG Bladder removed ENCOUNTER: Initial ACUITY: 1 day PAIN SCALE: Non-responsive LOCATION: cranial TECHNIQUE: Multiple contiguous axial images were obtained of the head. Using automated exposure control and adj ustment of the mA and/or kV according to patient size, radiation dose was kept as low as reasonably a chievable to obtain optimal diagnostic quality images. FINDINGS: CEREBRUM: The ventricles are normal for age. No evidence of midline shift, mass lesion, hemorrhage or acute in farction. No extra-axial fluid collections are seen. POSTERIOR FOSSA: The cerebellum and brainstem are intact. The 4th ventricle is midline. The cerebellopontine angle i s unremarkable. EXTRACRANIAL: The visualized portion of the orbits is intact. SKULL: The calvaria is intact. No evidence of skull fracture. CONCLUSION: Negative noncontrast head CT. Moo Frederick MD on January 22, 2017 at 20:33 Board Certified Radiologist. This report was verified electronically.
--- NOTE | 2017-01-22 20:38 | RADRPT ---
EXAM DATE/TIME: 01/22/2017 20:22 [facility] COMPARISON: No previous studies available for comparison. INDICATIONS : Abdomen pain. ORAL CONTRAST: No oral contrast ingested. RADIATION DOSE: 6.47 CTDIvol (mGy) MEDICAL HISTORY : Cardiovascular disease. Hypertension. Carcinoma, bladder.COPD SURGICAL HISTORY : CABG Bladder removed ENCOUNTER: Initial ACUITY: 1 day PAIN SCALE: Non-responsive LOCATION: abdomen TECHNIQUE: Volumetric scanning of the abdomen and pelvis was performed. Using automated exposure control and ad justment of the mA and/or kV according to patient size, radiation dose was kept as low as reasonably achievable to obtain optimal diagnostic quality images. FINDINGS: Noncontrast appearance of the liver, spleen, pancreas and adrenal glands within normal limits. Mild h ydronephrosis seen of both kidneys. Apparently some faint stones in both collecting systems but I don 't see a ureteral calculus on either side. Very large amount of stool seen in the rectum. Gas pattern is nonobstructive. No acute inflammatory c hanges are demonstrated. There is aortoiliac atherosclerosis and tortuosity. No aneurysm. Small effusions and patchy atelectasis/infiltrate seen of the visualized lung bases. There is pancham lashonda enlargement of the heart. CONCLUSION: 1. Very large amount of stool in the rectum. Nonobstructive pattern. No perceptible acute inflammator y changes. 2. Mild hydronephrosis of both kidneys, etiology uncertain. Faint stones are suspected of both kidney s but I don't see a ureteral calculus. 3. Aortoiliac atherosclerosis. 4. Small effusions and patchy infiltrate with interstitial thickening seen of both visualized lung ba ses. 5. Panchamber enlargement of the heart. Moo Frederick MD on January 22, 2017 at 20:34 Board Certified Radiologist. This report was verified electronically.
[2017-01-22] MEDS ORDERED: SODIUM CHLORIDE 0.9% FLUSH 10 ML FLUSH IV FLUSH PRN (21:15)
[2017-01-22] MEDS ORDERED: SENNOSIDES 8.6 MG TAB PO PRN (21:15)
[2017-01-22] MEDS ORDERED: LACTULOSE SYRUP 20 GM/30 ML CUP PO PRN (21:15)
[2017-01-22] MEDS ORDERED: BISACODYL 10 MG SUPP RECTAL PRN (21:15)
[2017-01-22] MEDS ORDERED: BISACODYL 10 MG SUPP RECTAL ONE (21:15)
[2017-01-22] MEDS ORDERED: MAGNESIUM HYDROXIDE SUSP 30 ML CUP PO PRN (21:15)
[2017-01-22] MEDS ORDERED: NALOXONE HCL 0.4 MG/ML AMP IV PRN (21:15)
[2017-01-22 21:28] LABS: BLOOD GAS BASE EXCESS 8.9 mmol/L (-2-2); BLOOD GAS CARBOXYHEMOGLOBIN 1.1 % (0-4); BLOOD GAS HCO3 35 mmol/L (22-26); BLOOD GAS METHEMOGLOBIN 0.9 % (0-2); BLOOD GAS O2 HGB SATURATION 84 % (90-100); BLOOD GAS OXYGEN CONTENT 8.2 Vol % (12.0-20.0); BLOOD GAS PCO2 71 mmHg (38-42); BLOOD GAS PO2 54 mmHG (61-120); BLOOD GAS TOTAL HGB 6.9 G/DL (12.0-16.0); TEMP CORR TO 98.6
[2017-01-22 21:29] LABS: DRAW SITE RT RADIAL; LITER FLOW 4 L/M; NUMBER OF ARTERIAL PUNCTURES 1; OXYGEN DEVICE NASAL CANNULA; STAT YES; ULNAR PULSE PRESENT
[2017-01-22 21:55] LABS: CRITICAL VALUE YES
[2017-01-22 22:00] VITALS: BP 116/59; PULSE 80; RESP 16; O2SAT 92
--- NOTE | 2017-01-22 23:05 | HHI.HP ---
HPI Service [facility] Primary Care Physician Unknown Admission Diagnosis Altered Mental Status, Pneumonia Diagnoses: (1) Respiratory failure with hypoxia and hypercapnia (2) Pneumonia (3) UTI (urinary tract infection) Chief Complaint: Confusion and pneumonia Travel History International Travel<30 Days: No Contact w/Intl Traveler <30 Da: No Traveled to Known Affected Are: No History of Present Illness Patient states that he is here from [facility] for pneumonia; "I was confused". States he had shortness of breath but no cough over the past few days. Unsure if he's had dizziness. He's on supplemental oxygen at facility "off and on". No liver or kidney problems. No DVT or PE, CVA, seizures, thyroid problems. Reports 100 pound weight loss in the past 8 months. Denies n/v/d, black/red stool, abdominal pain, chest pain. States he has "weakness" and is unable to ambulate for about two weeks. Reports a regular diet Reports pain on heel. Urostomy due to bladder cancer - placed in 2000; did not require chemo or radiation per patient. Hypertension, CAD s/p CABG 2002 and stents prior to bypass Denies atrial fibrillation Reports history of "spots on lungs" - has not followed up - chest x-ray reviewed and shows chronic pleural and parenchymal scarring with acute consolidation in right mid lung. . Review of Systems Except as stated in HPI: all other systems reviewed are Neg Past Family Social History Past Medical History Hypertension, CAD s/p CABG 2002 and stents prior to bypass, bladder cancer Past Surgical History Urostomy/Cystectomy CABG Cardiac stents . Reported Medications awaiting medication reconciliation . Allergies: Coded Allergies: Sulfa (Verified Allergy, Severe, 01/22/17) SULFA Penicillin (Verified Allergy, Unknown, PT UNAWARE OF REACTION - STATES " IT MAKES ME SICK", 01/22/17) Active Ordered Medications Current Medications IV Flush 2 ml 2 ml UNSCH PRN IV FLUSH FLUSH AFTER USING IV ACCESS; Start at 19:00 Sodium Chloride 1,000 ml @ 1,000 mls/hr Q1H IV Last administered on 01/22/17 20:01; Start 01/22/17 at 18:56; Stop 01/22/17 at 19:55; Status DC Metronidazole 100 ml @ 100 mls/hr ONCE ONCE IV Last administered on 20:34; Start 01/22/17 at 20:30; Stop 01/22/17 at 21:29; Status DC Azithromycin 500 mg/Sodium Chloride 250 ml @ 250 mls/hr ONCE ONCE IV Last administered on 01/22/17 20:41; Start 01/22/17 at 20:30; Stop 01/22/17 at 21:29 ; Status DC Aztreonam/Sodium Chloride (Azactam Inj/NS Inj) 100 ml @ 200 mls/hr ONCE ONCE IV Last administered on 01/22/17 21:36; Start 01/22/17 at 20:30; Stop at 20:59; Status DC Sodium Chloride (NS Flush) 2 ml UNSCH PRN IV FLUSH FLUSH AFTER USING IV ACCESS ; Start 01/22/17 at 21:15 Sodium Chloride (NS Flush) 2 ml BID IV FLUSH ; Start 01/23/17 at 09:00 Naloxone HCl (Narcan Inj) 0.4 mg UNSCH PRN IV SEE LABEL COMMENTS; Start at 21:15 Senna/Docusate Sodium (Mireille-Colace) 1 tab BID PO ; Start 01/23/17 at 09:00 Magnesium Hydroxide (Milk Of Magnesia Liq) 30 ml Q12H PRN PO MILD - MODERATE CONSTIPATION; Start 01/22/17 at 21:15 Sennosides (Senokot) 17.2 mg Q12H PRN PO MODERATE - SEVERE CONSTIPATION; Start 01/22/17 at 21:15 Bisacodyl (Dulcolax Supp) 10 mg DAILY PRN RECTAL SEVERE CONSITIPATION; Start at 21:15 Lactulose (Lactulose Liq) 30 ml DAILY PRN PO SEVERE CONSITIPATION; Start at 21:15 Bisacodyl (Dulcolax Supp) 10 mg ONCE ONCE RECTAL ; Start 01/22/17 at 21:15; Stop 01/22/17 at 21:16; Status DC Family History re: family illnesses/medical conditions "not that I know of" . Social History Tobacco: quit smoking in late 50's; smoked 1 ppd Alcohol: denies Illicit Drugs: denies . Physical Exam Vital Signs Vital Signs Date Time Temp Pulse Resp B/P Pulse Ox O2 Delivery O2 Flow Rate FiO2 01/22/17 19:08 16 97 Nasal Cannula 2 01/22/17 19:01 71 18 113/54 97 Nasal Cannula 2 01/22/17 18:55 72 16 99 Nasal Cannula 2 01/22/17 18:46 97.5 79 16 134/67 100 Physical Exam GENERAL: This is a pale, cachectic elderly male patient in no apparent distress. SKIN: No rashes. Cool and dry. excoriated wounds on bilateral ischial tuberosities - appx. nickel sized; bruising on bilateral upper extremities HEAD: Atraumatic. Normocephalic. EYES: No scleral icterus. No injection or drainage. ENT: Nose without bleeding, purulent drainage. NECK: Trachea midline. No JVD or lymphadenopathy. CARDIOVASCULAR: Regular rate and rhythm with systolic heart murmur; without gallops, or rubs. RESPIRATORY: Breath sounds diminished equal bilaterally. No wheezes, rales, or rhonchi. GASTROINTESTINAL: Abdomen soft, non-tender, nondistended. No guarding. : foul smelling urine MUSCULOSKELETAL: Extremities without clubbing, cyanosis, or edema. No calf tenderness. NEUROLOGICAL: Awake and alert and oriented. Normal speech. . Laboratory Laboratory Tests Test 01/22/17 01/22/17 01/22/17 01/22/17 19:10 19:16 19:21 21:17 White Blood Count 8.3 Red Blood Count 2.48 Hemoglobin 8.0 Hematocrit 24.6 Mean Corpuscular Volume 99.1 Mean Corpuscular Hemoglobin 32.2 Mean Corpuscular Hemoglobin 32.5 Concent Red Cell Distribution Width 15.9 Platelet Count 181 Mean Platelet Volume 10.8 Neutrophils (%) (Auto) 85.1 Lymphocytes (%) (Auto) 5.5 Monocytes (%) (Auto) 8.2 Eosinophils (%) (Auto) 0.8 Basophils (%) (Auto) 0.4 Neutrophils # (Auto) 7.1 Lymphocytes # (Auto) 0.5 Monocytes # (Auto) 0.7 Eosinophils # (Auto) 0.1 Basophils # (Auto) 0.0 CBC Comment DIFF FINAL Differential Comment Prothrombin Time 12.1 Prothromb Time International 1.1 Ratio Activated Partial 31.1 Thromboplast Time Sodium Level 139 Potassium Level 3.7 Chloride Level 99 Carbon Dioxide Level 36.9 Anion Gap 3 Blood Urea Nitrogen 30 Creatinine 1.07 Estimat Glomerular Filtration 65 Rate Random Glucose 93 Calcium Level 9.4 Total Bilirubin 0.3 Aspartate Amino Transf 52 (AST/SGOT) Alanine Aminotransferase 41 (ALT/SGPT) Alkaline Phosphatase 91 Total Creatine Kinase 73 Troponin I 0.04 Total Protein 6.8 Albumin 1.8 Lactic Acid Level 0.8 Urine Color YELLOW Urine Turbidity HAZY Urine pH 8.0 Urine Specific [place] 1.013 Urine Protein 30 Urine Glucose (UA) NEG Urine Ketones NEG Urine Occult Blood SMALL Urine Nitrite NEG Urine Bilirubin NEG Urine Urobilinogen LESS THAN 2.0 Urine Leukocyte Esterase TRACE Urine RBC 8 Urine WBC 15 Urine Bacteria FEW Urine Hyaline Casts 1 Urine Mucus FEW Microscopic Urinalysis Comment CATH-CULTURE IND Blood Gas Puncture Site RT RADIAL Blood Gas Patient Temperature 98.6 Blood Gas HCO3 35 Blood Gas Base Excess 8.9 Blood Gas Oxygen Saturation 84 Arterial Blood pH 7.32 Arterial Blood Partial 71 Pressure CO2 Arterial Blood Partial 54 Pressure O2 Arterial Blood Oxygen Content 8.2 Arterial Blood 1.1 Carboxyhemoglobin Arterial Blood Methemoglobin 0.9 Blood Gas Hemoglobin 6.9 Oxygen Delivery Device NASAL CANNULA Blood Gas Liter Flow 4 Date/Time Procedure Status Source Growth 01/22/17 19:21 Urine Culture Received Urine Catheterized Urine Pending Result Diagram: 01/22/17190901/22/171909 Imaging Last Impressions Abdomen/Pelvis CT 01/22/17 1937 Signed Impressions: Service Date/Time: Sunday, January 22, 2017 20:22 - CONCLUSION: 1. Very large amount of stool in the rectum. Nonobstructive pattern. No perceptible acute inflammatory changes. 2. Mild hydronephrosis of both kidneys, etiology uncertain. Faint stones are suspected of both kidneys but I don't see a ureteral calculus. 3. Aortoiliac atherosclerosis. 4. Small effusions and patchy infiltrate with interstitial thickening seen of both visualized lung bases. 5. Panchamber enlargement of the heart. Moo Frederick MD Head CT 01/22/17 1856 Signed Impressions: Service Date/Time: Sunday, January 22, 2017 20:19 - CONCLUSION: Negative noncontrast head CT. Moo Frederick MD Chest X-Ray 01/22/17 [id number] Signed Impressions: Service Date/Time: Sunday, January 22, 2017 19:15 - CONCLUSION: Chronic pleural and parenchymal scarring. Acute consolidation in the right midlung. Moo Frederick MD Assessment and Plan Problem List: (1) Respiratory failure with hypoxia and hypercapnia ICD Code: J96.91 Status: Acute (2) Pneumonia ICD Code: J18.9 Status: Acute (3) UTI (urinary tract infection) ICD Code: N39.0 Status: Acute Assessment and Plan I saw and evaluated the patient. I agree with the [facility]'s finding and plan of care as documented above. Details of my evaluation are as follows: 89 y/o male transferred here from [facility] for evaluation and management of AMS: Hypoxic and hypercapnic respiratory failure acute consolidation right midlung - ABGs show oxygen saturation of 84, pleasant sedated pH of 7.32, CO2 retention with PCO2 of 71 and hypoxia with PO2 of 54 - check echo to assess cardiac structure and function - check BNP - IV Azactam and Azithromycin for pneumonia - Keep supplemental O2 at 2 liters - do not increase without calling MD UTI suspected - Proteus Mirabilis isolated during prior admission on 12/13/16 - sensitive to Aztreonam and Cipro - treated with Cipro - Aztreonam should cover UTI as well as pneumonia - follow urine culture results and adjust treatment if indicated Bilateral decubitus on ischial tuberosities - consult wound care nurse - appreciate assistance with wound care - consult PT to prevent further debility and promote mobility Anemia - Patient's hemoglobin and hematocrit have been trending downward over the last 2 months - Continue home iron supplementation - Recheck CBC in a.m. and follow trends - Type and screen - Hold chemical DVT prophylaxis for now - Transfuse if indicated DVT prophylaxis - SCDs . The exam, history, and the medical decision-making described in the above note were completed with the assistance of the mid-level provider. I reviewed and agree with the findings presented. I attest that I had a [id number] encounter with the patient on the same day, and personally performed and documented my assessment and findings in the medical record. Code Status DNR - [place] DNR on chart dated 12/17/16 and signed by both the patient and Dr. Pat[place] of [place] [facility] [place]. . Discussed Condition With patient, ER physician, PLASTIC EXTRUDING MACHINE OPERATOR . Physician Certification 2 Midnight Certification Type: Admission for Inpatient Services Order for Inpatient Services The services are ordered in accordance with Medicare regulations or non- Medicare payer requirements, as applicable. In the case of services not specified as inpatient-only, they are appropriately provided as inpatient services in accordance with the 2-midnight benchmark. Estimated LOS (days): 3 days is the estimated time the patient will need to remain in the hospital, assuming treatment plan goals are met and no additional complications. Post-Hospital Plan: Not yet determined Problem Qualifiers (1) Pneumonia: Qualified Code: J18.1 - Pneumonia of right middle lobe due to infectious organism (2) UTI (urinary tract infection): Juliann Nielsen Jan 22, 2017 23:05 Jonny Perez MD Jan 25, 2017 07:47
[2017-01-22] MEDS ORDERED: TAB-TAB (23:37)
[2017-01-22] MEDS ORDERED: FLUT1INH INH (23:37)
[2017-01-22] MEDS ORDERED: IPRASOL INH (23:37)
[2017-01-22] MEDS ORDERED: REME15TA PO (23:37)
[2017-01-22] MEDS ORDERED: FERR324T4 PO (23:37)
[2017-01-23 01:00] VITALS: BP 148/63; PULSE 80; RESP 23; TEMP 97.7; O2SAT 94
[2017-01-23] MEDS ORDERED: FUROSEMIDE 20 MG/2 ML VIAL IV PUSH ONE (04:30)
[2017-01-23] MEDS: AZTREONAM INJ 2,000 MG in SODIUM CHLORIDE 0.9% INJ 100 ML IV SCH ×4 (04:51→21:05)
[2017-01-23 05:15] VITALS: BP 140/68; PULSE 82; RESP 23; TEMP 97; O2SAT 94
--- NOTE | 2017-01-23 07:10 | EKG ---
Date Performed: 01/22/2017 Time Performed: 19:36:47 PTAGE: 89 years EKG: Sinus rhythm WITH OCCASIONAL VENTRICULAR PREMATURE COMPLEXES INTRAVENTRICULAR CONDUCTION DELAY ABNORMAL ECG JANAY RED TO PRIOR ELECTROCARDIOGRAM, Premature ectopic beats are present. PREVIOUS TRACING : 01/09/2017 20.01 DOCTOR: Walter Garcia Interpretating Date/Time 01/23/2017 07:09:39
[2017-01-23 08:39] VITALS: BP 111/55; PULSE 88; RESP 18; TEMP 96; O2SAT 94
[2017-01-23] MEDS: SODIUM CHLORIDE 0.9% FLUSH 10 ML FLUSH IV FLUSH SCH ×2 (08:42→20:51)
[2017-01-23] MEDS: FLUTICASONE 100 MCG/VILANTEROL 25 MCG INHALER INH SCH (08:42)
[2017-01-23] MEDS: DOCUSATE SODIUM 50 MG/SENNA 8.6 MG TAB PO SCH ×2 (08:43→20:55)
[2017-01-23] MEDS: FERROUS SULFATE 325 MG (65 MG ELEMENTAL IRON) TAB PO SCH (08:43)
[2017-01-23 08:47] LABS: AUTOMATED NEUTROPHIL # 6.3 TH/MM3 (1.8-7.7); BASOPHIL # 0.1 TH/MM3 (0-0.2); BASOPHIL % 0.7 % (0.0-2.0); EOSINOPHIL # 0.2 TH/MM3 (0-0.4); HEMATOCRIT 25.1 % (39.0-51.0); HEMO FLAGS DIFF FINAL; LYMPHOCYTE # 0.5 TH/MM3 (1.0-4.8); MEAN CELL VOLUME 100.8 FL (80.0-100.0); MEAN CORPUSCULAR HEMOGLOBIN 31.2 PG (27.0-34.0); MEAN CORPUSCULAR HGB CONC 30.9 % (32.0-36.0); NEUT % 83.3 % (16.0-70.0); PLATELET COUNT 163 TH/MM3 (150-450); RED BLOOD COUNT 2.49 MIL/MM3 (4.50-5.90); WHITE BLOOD COUNT 7.6 TH/MM3 (4.0-11.0)
[2017-01-23 09:07] LABS: BICARBONATE 33.1 MEQ/L (21.0-32.0); POTASSIUM 3.7 MEQ/L (3.5-5.1)
--- NOTE | 2017-01-23 12:51 | PD.WCN.NOT ---
Wound Consult Description: Patient seen on [address] [place] for Ischial tuberosity pressure ulcers. Patient was turned to R side with assistance of PLASTIC EXTRUDING MACHINE OPERATOR and Alis VERGARA BULK RECEIVER to reveal R and L ischial wounds. Wound to R ischium presents as 100% pink,and partial thickness. Wound noted with mixed etiology of moisture, pressure and friction. Wound is without drainage. Periwound is unremarkable. Wound measurements are as follows 1.2 x 0.3 x ~<0.1. Wound to L ischium presents as full thickness with ~70% red tissue, ~25% pink tissue and ~5% yellow tissue. Wound noted with scant serous drainage when cleansed with normal saline and gauze. Wound measurements are as follows: 1.5 x 1 x ~0.2 . Periwound is also unremarkable. Etiology appears to be mixed with moisture, pressure and friction. Applied skin prep to periwound of both wounds.Wounds left open to air at this time due to incontinent episode. JAI Ya [address] [place] [address] BULK RECEIVER will apply dressing after patient cleaned. Communicated with: JAI Ya [address] [place] [address] BULK RECEIVER Recommendation: Recommend to cleanse R and L ischial wound with normal saline or wound cleanser. Please apply skin prep to periwound before applying adhesive foam dressing with wider end of dressing covering patient's wounds and narrower end extending up toward sacrum. Please change every 3 days or as needed if saturated or dislodged. Magda Renae CRN Jan 23, 2017 12:51
[2017-01-23 13:00] VITALS: BP 118/59; PULSE 90; RESP 18; TEMP 95.8; O2SAT 93
--- NOTE | 2017-01-23 13:27 | ECHRPT ---
Indication: SOB CONCLUSIONS Normal left ventricular size. Wall thickness is normal. The left ventricular systolic function is moderately reduced with an estimated ejection fraction of 35%. Mitral annular calcification is present. Mild mitral valve regurgitation. There is mild tricuspid valve regurgitation. There is estimated moderate pulmonary hypertension present. BP: 113 / 54 HR: 71 Rhythm: Sinus MEASUREMENTS (Male / Female) Normal Values Technical Quality:Good 2D ECHO LV Diastolic Diameter PLAX 4.5 cm 4.2 - 5.9 / 3.9 - 5.3 cm LV Systolic Diameter PLAX 4.1 cm IVS Diastolic Thickness 1.3 cm 0.6 - 1.0 / 0.6 - 0.9 cm LVPW Diastolic Thickness 1.0 cm 0.6 - 1.0 / 0.6 - 0.9 cm LV Relative Wall Thickness 0.5 RV Internal Dim ED PLAX 1.9 cm LA Systolic Diameter LX 3.8 cm 3.0 - 4.0 / 2.7 - 3.8 cm M-MODE Aortic Root Diameter MM 3.0 cm AV Cusp Separation MM 1.9 cm DOPPLER AV Peak Velocity 204.5 cm/s AV Peak Gradient 16.7 mmHg LVOT Peak Velocity 69.1 cm/s LVOT Peak Gradient 1.9 mmHg Mitral E Point Velocity 44.4 cm/s Mitral A Point Velocity 70.1 cm/s Mitral E to A Ratio 0.6 TR Peak Velocity 354.0 cm/s TR Peak Gradient 50.1 mmHg FINDINGS LEFT VENTRICLE Normal left ventricular size. Wall thickness is normal. The left ventricular systolic function is moderately reduced with an estimated ejection fraction of 35%. RIGHT VENTRICLE Normal right ventricular size and systolic function. LEFT ATRIUM The left atrial size is normal. RIGHT ATRIUM The right atrial size is normal. ATRIAL SEPTUM Normal atrial septal thickness without atrial level shunting by limited color doppler interrogation. AORTA The aortic root and proximal ascending aorta are normal in size on limited imaging. MITRAL VALVE Mitral annular calcification is present. Mild mitral valve regurgitation. AORTIC VALVE Trileaflet aortic valve. No aortic valve stenosis or regurgitation. TRICUSPID VALVE There is mild tricuspid valve regurgitation. There is estimated moderate pulmonary hypertension present. PULMONARY VALVE The pulmonary valve is not well visualized. VESSELS The inferior vena cava is normal in size. PERICARDIUM No pericardial effusion. Franchesca Javed MD, FACC (Electronically Signed) Final Date:23 January 2017 13:26
[2017-01-23 16:24] VITALS: BP 101/50; PULSE 95; RESP 18; TEMP 95.9; O2SAT 94
--- NOTE | 2017-01-23 17:00 | HHI.PR ---
Subjective Remarks Denies cp/sob awake and alert afebrile Objective Vitals Vital Signs Date Time Temp Pulse Resp B/P Pulse Ox O2 Delivery O2 Flow Rate FiO2 01/23/17 16:24 95.9 95 18 101/50 94 01/23/17 13:00 95.8 90 18 118/59 93 01/23/17 08:39 96.0 88 18 111/55 94 01/23/17 05:15 97.0 82 23 140/68 94 01/23/17 01:00 97.7 80 23 148/63 94 01/22/17 23:29 Nasal Cannula 2.00 01/22/17 22:00 80 16 116/59 92 Nasal Cannula 2 01/22/17 19:08 16 97 Nasal Cannula 2 01/22/17 19:01 71 18 113/54 97 Nasal Cannula 2 01/22/17 18:55 72 16 99 Nasal Cannula 2 01/22/17 18:46 97.5 79 16 134/67 100 I/O 01/22/17 01/22/17 01/22/17 01/23/17 01/23/17 01/23/17 07:00 15:00 23:00 07:00 15:00 23:00 Intake Total 0 ml Output Total 300 ml Balance -300 ml Intake Oral 0 ml Output Urine Total 300 ml # Voids 3 # Bowel Movements 0 Result Diagram: 01/23/17 0731 01/23/1731 Imaging Last Impressions Abdomen/Pelvis CT 01/22/171936 Signed Impressions: Service Date/Time: Sunday, January 22, 2017 20:22 - CONCLUSION: 1. Very large amount of stool in the rectum. Nonobstructive pattern. No perceptible acute inflammatory changes. 2. Mild hydronephrosis of both kidneys, etiology uncertain. Faint stones are suspected of both kidneys but I don't see a ureteral calculus. 3. Aortoiliac atherosclerosis. 4. Small effusions and patchy infiltrate with interstitial thickening seen of both visualized lung bases. 5. Panchamber enlargement of the heart. Moo Frederick MD Head CT 01/22/171855 Signed Impressions: Service Date/Time: Sunday, January 22, 2017 20:19 - CONCLUSION: Negative noncontrast head CT. Moo Frederick MD Chest X-Ray 01/22/171855 Signed Impressions: Service Date/Time: Sunday, January 22, 2017 19:15 - CONCLUSION: Chronic pleural and parenchymal scarring. Acute consolidation in the right midlung. Moo Frederick MD Objective Remarks GENERAL: This is a pale, cachectic elderly male patient in no apparent distress. SKIN: No rashes. Cool and dry. excoriated wounds on bilateral ischial tuberosities - appx. nickel sized; bruising on bilateral upper extremities HEAD: Atraumatic. Normocephalic. EYES: No scleral icterus. No injection or drainage. ENT: Nose without bleeding, purulent drainage. NECK: Trachea midline. No JVD or lymphadenopathy. CARDIOVASCULAR: Regular rate and rhythm with systolic heart murmur; without gallops, or rubs. RESPIRATORY: Breath sounds diminished equal bilaterally. No wheezes, rales, or rhonchi. GASTROINTESTINAL: Abdomen soft, non-tender, nondistended. No guarding. : foul smelling urine MUSCULOSKELETAL: Extremities without clubbing, cyanosis, or edema. No calf tenderness. NEUROLOGICAL: Awake and alert and oriented. Normal speech. A/P Problem List: (1) Respiratory failure with hypoxia and hypercapnia ICD Code: J96.91 Status: Acute (2) Pneumonia ICD Code: J18.9 Status: Acute (3) UTI (urinary tract infection) ICD Code: N39.0 Status: Acute Assessment and Plan 89 y/o male transferred here from [facility] for evaluation and management of AMS: Hypoxic and hypercapnic respiratory failure - acute consolidation right midlung - suspect HCAP. - Initially ABG showed an oxygen saturations of 84, pH of 7.32, CO2 retention with a PCO2 of 71 and hypoxemia with PO2 of 54. - Echo was done and it showes a moderately reduced systolic function with an EF of 55% and moderate pulmonary hypertension. - Patient was started in IV septum and azithromycin for pneumonia. UTI suspected - Proteus Mirabilis isolated during prior admission on 12/13/16 - sensitive to Aztreonam and Cipro - treated with Cipro - Aztreonam should cover UTI as well as pneumonia -Urine cultures concurrent with contamination Bilateral decubitus on ischial tuberosities - consult wound care nurse - appreciate assistance with wound care - consult PT to prevent further debility and promote mobility. The patient will need rehabilitation on discharge. Anemia - Patient's hemoglobin and hematocrit have been trending downward over the last 2 months - Continue home iron supplementation - Recheck CBC in a.m. and follow trends - Type and screen - Hold chemical DVT prophylaxis for now - Transfuse if indicated Encephalopathy - Likely combination of metabolic encephalopathy secondary to pneumonia and UTI and CO2 narcosis. - Patient is awake and alert, now resolved. DVT prophylaxis - SCDs . Palliative care following. Code Status DNR - [place] DNR on chart dated 12/17/16 and signed by both the patient and Dr. Patton of the [facility] palliative care service. . Discharge Planning Continue to monitor in the medical floor. Palliative care consultation pending. Problem Qualifiers (1) Pneumonia: Qualified Code: J18.1 - Pneumonia of right middle lobe due to infectious organism (2) UTI (urinary tract infection): Daniel Denton MD Jan 23, 2017 17:00
[2017-01-23 20:30] VITALS: BP 145/88; PULSE 80; RESP 21; TEMP 97; O2SAT 94
[2017-01-23] MEDS: AZITHROMYCIN INJ 500 MG in SODIUM CHLOR 0.9% 250 ML INJ 250 ML IV SCH (20:51)
[2017-01-24] VITALS (8 sets, daily range): BP systolic 108–142; BP diastolic 54–80; PULSE 75–89; RESP 18–24; TEMP 95.2–98; O2SAT 94–100
[2017-01-24] MEDS: AZTREONAM INJ 2,000 MG in SODIUM CHLORIDE 0.9% INJ 100 ML IV SCH ×4 (03:58→20:15)
[2017-01-24] MEDS: FLUTICASONE 100 MCG/VILANTEROL 25 MCG INHALER INH SCH (08:28)
[2017-01-24] MEDS: SODIUM CHLORIDE 0.9% FLUSH 10 ML FLUSH IV FLUSH SCH ×2 (08:29→20:16)
[2017-01-24] MEDS: FERROUS SULFATE 325 MG (65 MG ELEMENTAL IRON) TAB PO SCH (08:30)
[2017-01-24] MEDS: DOCUSATE SODIUM 50 MG/SENNA 8.6 MG TAB PO SCH ×2 (08:31→20:15)
[2017-01-24 10:34] LABS: AUTOMATED NEUTROPHIL # 5.1 TH/MM3 (1.8-7.7); BASOPHIL % 0.5 % (0.0-2.0); EOSINOPHIL # 0.3 TH/MM3 (0-0.4); EOSINOPHIL % 3.9 % (0.0-4.0); HEMATOCRIT 23.3 % (39.0-51.0); HEMO FLAGS DIFF FINAL; LYMPH % 11.9 % (9.0-44.0); LYMPHOCYTE # 0.8 TH/MM3 (1.0-4.8); MEAN CELL VOLUME 99.5 FL (80.0-100.0); MEAN CORPUSCULAR HEMOGLOBIN 31.4 PG (27.0-34.0); MEAN CORPUSCULAR HGB CONC 31.5 % (32.0-36.0); MONO % 9.1 % (0.0-8.0); NEUT % 74.6 % (16.0-70.0); PLATELET COUNT 178 TH/MM3 (150-450); RED BLOOD COUNT 2.34 MIL/MM3 (4.50-5.90); WHITE BLOOD COUNT 6.8 TH/MM3 (4.0-11.0)
[2017-01-24 10:54] LABS: ALT (GPT) 30 U/L (12-78); ANION GAP 0 MEQ/L (5-15); AST (GOT) 32 U/L (15-37); BICARBONATE 38.6 MEQ/L (21.0-32.0); BLOOD UREA NITROGEN 38 MG/DL (7-18); CHLORIDE 109 MEQ/L (98-107); GLOMERULAR FILTRATION RATE 54 ML/MIN (>89); POTASSIUM 3.9 MEQ/L (3.5-5.1); SODIUM (NA) 148 MEQ/L (136-145)
[2017-01-24 10:56] LABS: ALKALINE PHOSPHATASE 84 U/L (45-117); TOTAL BILIRUBIN ADULT 0.3 MG/DL (0.2-1.0)
--- NOTE | 2017-01-24 10:57 | PD.CONS ---
Consult Service Palliative Care Consult Requested By Dr. Kwong Primary Care Physician Unknown Reason for Consultation a. To assist with evaluation and management of symptoms including: Dyspnea , cough b. To assist medical decision maker(s) with: better understanding of current medical conditions; weighing benefits/burdens of medical treatment options; making medical treatment decisions. HPI History of Present Illness This is a very pleasant 89-year-old male who was seen in [facility] approximately one month ago after being found confused in his home. 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 From the hospital they were both discharged to [facility]. At baseline he is alert and oriented. He became confused and lethargic at the rehabilitation and was sent to the hospital for altered mental status. He was found to have right mid and upper lobe pneumonia suspicious for aspiration and a possible urinary tract infection. ED findings * Laboratory: White blood cells 8.3, hemoglobin 8.0, hematocrit 24.6, platelets 181, sodium 139, potassium 3.7, BUN 30, creatinine 1.07, albumin 1.8, B natriuretic peptide 994, ABG pH 7.32, PCO2 71, PO2 54, oxygen saturation 84% on 4 L nasal cannula HCO3 35 base excess +8.9. Urinalysis shows hazy yellow specimen with a pH of 8.0, specific gravity 1.013, protein 30, occult blood small, trace leukocyte esterase, few bacteria. Urine culture is pending. * Radiology: Biapical pleural thickening and patchy airspace opacities are again seen in both lungs right worse than left, right mid and upper lung infiltrate appears slightly worse in the interim. Consultations * Speech therapy: Evaluation revealed overt signs and symptoms of aspiration with cough response with thin and nectar thick liquids. Tolerated honey thick consistency, pures and soft solids without any overt signs and symptoms of aspiration. Recommended soft diet with chopped meat, extra gravy, all liquids thickened to honey consistency. * Wound care: Wound care evaluated wounds to right and left atrium. Right issue him his partial-thickness, 100% pink, without drainage measuring 1.2 x 0.3 by less than 0.1. Left issue wound is full-thickness with 70% red tissue, 25% pink tissue and 5% yellow tissue with scant serous drainage measuring 1.5 x 1 by approximately 0.2. Recommendations for cleansing with normal saline and dressing with gauze. Patient states he is very unhappy with the diet, hates the thickened liquid however refuses any artificial feeding tubes. The subject of hospice was discussed with him and he is open to considering that. Will follow with him in the morning after consideration of his options . Function/Cognitive Trajectory He has become progressively weaker over the last year. He had previously lived independently with his , drove his car to the grocery store and to doctor's visits, did all the cooking, however at last admission he and his were both found to be altered, living in unkempt conditions and it was determined at discharge that they required additional assistance and were unable to live independently. He has been consistently losing weight due to his inability to care for himself and his . He is no longer able to drive or take care of activities of daily living without assistance. . Review of Systems Constitutional: COMPLAINS OF: Weight loss, Generalized weakness Endocrine: DENIES: Heat/cold intolerance, Polydipsia, Polyuria, Polyphagia Eyes: DENIES: Blurred vision, Diplopia, Eye inflammation, Eye pain, Vision loss , Photosensitivity, Double Vision, Blind spots Ears, nose, mouth, throat: COMPLAINS OF: Hearing loss Respiratory: COMPLAINS OF: Cough Cardiovascular: COMPLAINS OF: Dyspnea on Exertion Gastrointestinal: COMPLAINS OF: Abdominal pain Genitourinary: DENIES: Sexual dysfunction, Urinary frequency, Urinary incontinence, Urgency, Hematuria, Dysuria, Nocturia, Penile Discharge, Testicular Pain, Testicular Swelling, Hesitancy, Dribbling, Decreased stream Musculoskeletal: DENIES: Joint pain, Muscle aches, Stiffness, Joint Swelling, Back pain, Neck pain, Decreased range of motion Integumentary: DENIES: Abnormal pigmentation, Nail changes, Pruritus, Rash, Nodules, Tumors, Excessive dryness, Non-healing sores Hematologic/Lymphatics: DENIES: Bruising, Lymphadenopathy, Prolonged bleed w/ proced, History of transfusions Immunologic/Allergic: DENIES: Eczema, Urticaria Neurologic: COMPLAINS OF: Poor Balance Psychiatric: COMPLAINS OF: Confusion Past Family Social History Coded Allergies: Sulfa (Verified Allergy, Severe, 01/22/17) SULFA Penicillin (Verified Allergy, Unknown, PT UNAWARE OF REACTION - STATES " IT MAKES ME SICK", 01/22/17) Past Medical History Hypertension CAD s/p CABG 2002 and stents prior to bypass Bladder cancer Past Surgical History Urostomy/Cystectomy CABG Cardiac stents . Reported Medications Reported Meds & Active Scripts Active Reported Duoneb (Ipratropium-Albuterol Neb) 0.5-2.5 Mg/3 Ml Neb 1 Nebule INH Q6HR NEB Ferrous Sulfate DR (Ferrous Sulfate) 324 Mg Tabdr 324 Mg PO DAILY Tab-A-Maria G (Multiple Vitamin) 1 Tab Tab Remeron (Mirtazapine) 15 Mg Tab 7.5 Mg PO HS Breo Ellipta Inh (Fluticasone/Vilanterol) 100-25 Mcg/Act Inh 1 Puff INH DAILY Use daily at the same time. Aspirin Adult Low Strength (Aspirin) 81 Mg Tabdr 162 Mg PO DAILY Current Medications Medications (Trade) Dose Ordered Sig/Vania Route Start Time Stop Time Status Last Admin (NS Flush) 2 ml UNSCH PRN IV FLUSH 01/22/17 19:00 (NS Flush) 2 ml UNSCH PRN IV FLUSH 01/22/17 21:15 (NS Flush) 2 ml BID IV FLUSH 01/23/17 09:00 01/24/17 08:29 (Narcan Inj) 0.4 mg UNSCH PRN IV 01/22/17 21:15 (Mireille-Colace) 1 tab BID PO 01/23/17 09:00 01/24/17 08:31 (Milk Of Magnesia Liq) 30 ml Q12H PRN PO 01/22/17 21:15 (Senokot) 17.2 mg Q12H PRN PO 01/22/17 21:15 (Dulcolax Supp) 10 mg DAILY PRN RECTAL 01/22/17 21:15 Lactulose 30 ml 30 ml DAILY PRN PO 01/22/17 21:15 Aztreonam 2000 mg/ Sodium Chloride 100 ml @ 200 mls/hr Q6H IV 01/23/17 04:00 01/24/17 03:58 (Zithromax Inj/ NS 250 ml Inj) 250 ml @ 250 mls/hr HS IV 01/23/17 21:00 01/23/17 20:51 (Breo Ellipta 100-25 Inh) 1 puff DAILY INH 01/23/17 09:00 01/24/17 08:28 (Ferrous Sulfate) 325 mg DAILY PO 01/23/17 09:00 01/24/17 08:30 Family History Father at 73 from black lung 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 Mother at 93 of natural causes. . Substance Use Tobacco: Quit smoking 50 years ago with a [id number] history. Alcohol: None reported Prescription med abuse: None reported Illicits: None reported Psychosocial History his is an elderly white male thin and frail caregiver for his born in [place] and moved to [place] after he was . 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 He is a of the [employer] for 7 years and maybe for 1 year. He has 3 children and 3 remaining living siblings. He has not created a healthcare surrogate form but wishes his 3 children to be his surrogates. We have reached up to the son Jesus whose contact information we do have and are awaiting a return phone call to establish contact. He did verbally state he requests no CPR or intubation and that status was entered into the record in accordance with his wishes. Spiritual/Cultural Factors No spiritual affiliation. Living Will: Never completed Health Care Surrogate: Never completed Durable Power of Fur Coat Sewer: Never completed Physical Exam Vital Signs Date Time Temp Pulse Resp B/P Pulse Ox O2 Delivery O2 Flow Rate FiO2 01/24/17 08:01 95.9 77 18 114/66 97 01/24/17 05:40 98.0 80 24 135/72 96 01/24/17 00:45 97.9 89 22 142/80 94 01/23/17 20:30 97.0 80 21 145/88 94 01/23/17 16:24 95.9 95 18 101/50 94 01/23/17 13:00 95.8 90 18 118/59 93 01/23/17 01/24/17 19:00 07:00 Intake Total 1400 ml Output Total 950 ml Balance 450 ml Intake Oral 1400 ml Stool Total 950 ml # Bowel Movements 0 Exam CONSTITUTIONAL/GENERAL: This is a very thin, cachectic patient, in no apparent distress. TUBES/LINES/DRAINS: PIV right forearm SKIN: No jaundice, rashes, or lesions. No wounds seen anteriorly. Skin temperature appropriate. Not diaphoretic. HEAD: Atraumatic. Normocephalic. EYES: Pupils equal and round and reactive. Extraocular motions intact. No scleral icterus. No injection or drainage. Fundi not examined. ENT: Hard of hearing, mild speech impediment. NECK: Trachea midline. Supple, nontender. No palpable thyroid enlargement or nodularity. CARDIOVASCULAR: Regular rate and rhythm without murmurs, gallops, or rubs. No JVD. Peripheral pulses symmetric. RESPIRATORY/CHEST: Cachectic, old sternal wires status post CABG visible through the skin, lungs clear diminished. GASTROINTESTINAL: Abdomen soft, non-tender, nondistended. No hepato-splenomegaly , or palpable masses. No guarding. Bowel sounds present. GENITOURINARY: Urostomy. MUSCULOSKELETAL: Extremities without clubbing, cyanosis, or edema. No joint tenderness or effusion noted. No calf tenderness. No mottling or clubbing. NEUROLOGICAL: Awake and alert. Motor and sensory grossly within normal limits. Follows commands. Moves all extremities. PSYCHIATRIC: No obvious anxiety/depression. no apparent hallucinations or other psychotic thought process. Diagnostic Tests Laboratory Laboratory Tests Test 01/22/17 01/22/17 01/22/17 01/22/17 19:10 19:16 19:21 21:17 White Blood Count 8.3 TH/MM3 (4.0-11.0) Red Blood Count 2.48 MIL/MM3 (4.50-5.90) Hemoglobin 8.0 GM/DL (13.0-17.0) Hematocrit 24.6 % (39.0-51.0) Mean Corpuscular Volume 99.1 FL (80.0-100.0) Mean Corpuscular Hemoglobin 32.2 PG (27.0-34.0) Mean Corpuscular Hemoglobin 32.5 % Concent (32.0-36.0) Red Cell Distribution Width 15.9 % (11.6-17.2) Platelet Count 181 TH/MM3 (150-450) Mean Platelet Volume 10.8 FL (7.0-11.0) Neutrophils (%) (Auto) 85.1 % (16.0-70.0) Lymphocytes (%) (Auto) 5.5 % (9.0-44.0) Monocytes (%) (Auto) 8.2 % (0.0-8.0) Eosinophils (%) (Auto) 0.8 % (0.0-4.0) Basophils (%) (Auto) 0.4 % (0.0-2.0) Neutrophils # (Auto) 7.1 TH/MM3 (1.8-7.7) Lymphocytes # (Auto) 0.5 TH/MM3 (1.0-4.8) Monocytes # (Auto) 0.7 TH/MM3 (0-0.9) Eosinophils # (Auto) 0.1 TH/MM3 (0-0.4) Basophils # (Auto) 0.0 TH/MM3 (0-0.2) CBC Comment DIFF FINAL Differential Comment Prothrombin Time 12.1 SEC (9.8-11.6) Prothromb Time International 1.1 RATIO Ratio Activated Partial 31.1 SEC Thromboplast Time (24.3-30.1) Sodium Level 139 MEQ/L (136-145) Potassium Level 3.7 MEQ/L (3.5-5.1) Chloride Level 99 MEQ/L (98-107) Carbon Dioxide Level 36.9 MEQ/L (21.0-32.0) Anion Gap 3 MEQ/L (5-15) Blood Urea Nitrogen 30 MG/DL (7-18) Creatinine 1.07 MG/DL (0.60-1.30) Estimat Glomerular Filtration 65 ML/MIN (>89) Rate Random Glucose 93 MG/DL (74-106) Calcium Level 9.4 MG/DL (8.5-10.1) Total Bilirubin 0.3 MG/DL (0.2-1.0) Aspartate Amino Transf 52 U/L (15-37) (AST/SGOT) Alanine Aminotransferase 41 U/L (12-78) (ALT/SGPT) Alkaline Phosphatase 91 U/L (45-117) Total Creatine Kinase 73 U/L (39-308) Troponin I 0.04 NG/ML (0.02-0.05) Total Protein 6.8 GM/DL (6.4-8.2) Albumin 1.8 GM/DL (3.4-5.0) Lactic Acid Level 0.8 mmol/L (0.4-2.0) Urine Color YELLOW (YELLW/STRAW) Urine Turbidity HAZY (CLEAR) Urine pH 8.0 (5.0-8.5) Urine Specific [place] 1.013 (1.002-1.035) Urine Protein 30 mg/dL (NEG-TRACE) Urine Glucose (UA) NEG mg/dL (NEG) Urine Ketones NEG mg/dL (NEG) Urine Occult Blood SMALL (NEG) Urine Nitrite NEG (NEG) Urine Bilirubin NEG (NEG) Urine Urobilinogen LESS THAN 2.0 MG/DL (LESS THAN 2.0) Urine Leukocyte Esterase TRACE (NEG) Urine RBC 8 /hpf (0-3) Urine WBC 15 /hpf (0-5) Urine Bacteria FEW /hpf (NONE) Urine Hyaline Casts 1 /lpf (RARE) Urine Mucus FEW /lpf (OCC) Microscopic Urinalysis Comment CATH-CULTURE IND Blood Gas Puncture Site RT RADIAL Blood Gas Patient Temperature 98.6 Blood Gas HCO3 35 mmol/L (22-26) Blood Gas Base Excess 8.9 mmol/L (-2-2) Blood Gas Oxygen Saturation 84 % (90-100) Arterial Blood pH 7.32 (7.380-7.420) Arterial Blood Partial 71 mmHg (38-42) Pressure CO2 Arterial Blood Partial 54 mmHG Pressure O2 (61-120) Arterial Blood Oxygen Content 8.2 Vol % (12.0-20.0) Arterial Blood 1.1 % (0-4) Carboxyhemoglobin Arterial Blood Methemoglobin 0.9 % (0-2) Blood Gas Hemoglobin 6.9 G/DL (12.0-16.0) Oxygen Delivery Device NASAL CANNULA Blood Gas Liter Flow 4 L/M Test 01/22/17 01/23/17 23:52 07:31 B-Type Natriuretic Peptide 994 PG/ML (0-100) Blood Type O POSITIVE Antibody Screen NEGATIVE White Blood Count 7.6 TH/MM3 (4.0-11.0) Red Blood Count 2.49 MIL/MM3 (4.50-5.90) Hemoglobin 7.8 GM/DL (13.0-17.0) Hematocrit 25.1 % (39.0-51.0) Mean Corpuscular Volume 100.8 FL (80.0-100.0) Mean Corpuscular Hemoglobin 31.2 PG (27.0-34.0) Mean Corpuscular Hemoglobin 30.9 % Concent (32.0-36.0) Red Cell Distribution Width 16.0 % (11.6-17.2) Platelet Count 163 TH/MM3 (150-450) Mean Platelet Volume 10.4 FL (7.0-11.0) Neutrophils (%) (Auto) 83.3 % (16.0-70.0) Lymphocytes (%) (Auto) 6.0 % (9.0-44.0) Monocytes (%) (Auto) 7.0 % (0.0-8.0) Eosinophils (%) (Auto) 3.0 % (0.0-4.0) Basophils (%) (Auto) 0.7 % (0.0-2.0) Neutrophils # (Auto) 6.3 TH/MM3 (1.8-7.7) Lymphocytes # (Auto) 0.5 TH/MM3 (1.0-4.8) Monocytes # (Auto) 0.5 TH/MM3 (0-0.9) Eosinophils # (Auto) 0.2 TH/MM3 (0-0.4) Basophils # (Auto) 0.1 TH/MM3 (0-0.2) CBC Comment DIFF FINAL Differential Comment Sodium Level 145 MEQ/L (136-145) Potassium Level 3.7 MEQ/L (3.5-5.1) Chloride Level 105 MEQ/L (98-107) Carbon Dioxide Level 33.1 MEQ/L (21.0-32.0) Anion Gap 7 MEQ/L (5-15) Blood Urea Nitrogen 29 MG/DL (7-18) Creatinine 0.89 MG/DL (0.60-1.30) Estimat Glomerular Filtration 80 ML/MIN (>89) Rate Random Glucose 68 MG/DL (74-106) Calcium Level 9.3 MG/DL (8.5-10.1) Result Diagram: 01/23/17 0731 01/23/17 0731 Microbiology Microbiology Date/Time Procedure Status Source Growth 01/22/17 19:21 Urine Culture - Preliminary Resulted Urine Catheterized Urine IMMATURE GROWTH - REINCUBATE Imaging Last Impressions Abdomen/Pelvis CT 01/22/171936 Signed Impressions: Service Date/Time: Sunday, January 22, 2017 20:22 - CONCLUSION: 1. Very large amount of stool in the rectum. Nonobstructive pattern. No perceptible acute inflammatory changes. 2. Mild hydronephrosis of both kidneys, etiology uncertain. Faint stones are suspected of both kidneys but I don't see a ureteral calculus. 3. Aortoiliac atherosclerosis. 4. Small effusions and patchy infiltrate with interstitial thickening seen of both visualized lung bases. 5. Panchamber enlargement of the heart. Moo Frederick MD Head CT 01/22/171855 Signed Impressions: Service Date/Time: Sunday, January 22, 2017 20:19 - CONCLUSION: Negative noncontrast head CT. Moo Frederick MD Chest X-Ray 01/22/171855 Signed Impressions: Service Date/Time: Sunday, January 22, 2017 19:15 - CONCLUSION: Chronic pleural and parenchymal scarring. Acute consolidation in the right midlung. Moo Frederick MD Patient/Family Conference Issues Discussed: * Palliative care role, purpose, approach * Additional medical, psychosocial, and spiritual history * Patients general health, functional status, and cognitive changes in the months leading up to the current hospitalization * Patient/family understanding of the current medical problems * Patient/family understanding of prognosis * Patients goals of care as best understood from advance directives and/or conversations and/or values * Current medical treatment options and benefits/burdens of those options * Likely scenarios comparing ongoing aggressive care with a transition to comfort measures only * Questions answered to the best of my ability * Palliative care contact information provided Assessment and Plan Disease Oriented Problem List: (1) COPD (chronic obstructive pulmonary disease) (2) Total self-care deficit (3) Malnutrition (4) Pneumonia (5) Respiratory failure with hypoxia and hypercapnia (6) Weakness (7) Cough (8) UTI (urinary tract infection) Symptom Scale: (1) Cough 0-10 Scale: Unable to quantify (2) Dyspnea and respiratory abnormalities 0-10 Scale: Unable to quantify Pertinent Non-Medical Issues Psychosocial:his is an elderly white male thin and frail caregiver for his born in [place] and moved to [place] after he was . 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 He is a of the [employer] for 7 years and maybe for 1 year. He has 3 children and 3 remaining living siblings. He has not created a healthcare surrogate form but wishes his 3 children to be his surrogates. We have reached up to the son Jesus jasso contact information we do have and are awaiting a return phone call to establish contact. He did verbally state he requests no CPR or intubation and that status was entered into the record in accordance with his wishes. Spiritual: No spiritual affiliation Legal: He wishes his 3 children to be his joint healthcare surrogates which would be consistent with [place] statutes. He is a DO NOT RESUSCITATE status. Ethical issues impacting care: Important Contacts Son - Jesus MembrenoJr. Daughter - Geeta Robles ([place]) Daughter - Kimmy Membreno ([place]) Neighbor - Sabrina Brito Prognosis This is an elderly, cachectic male who has been steadily losing weight since his bypass surgery in 2002. He has multiple comorbidities including coronary artery disease, bladder cancer and that recurrent urinary tract infections. He is developing recurrent aspiration pneumonia with overt signs and symptoms of aspiration per speech therapy evaluation. He is now developing skin wounds on bony prominences and requires full-time care at retirement facilities. His prognosis is poor and will likely have recurrent hospitalizations. Code Status: No Code Plan PLAN: Legal decision maker: Patient is capable of making assisted decisions at this time, alert and oriented today. He states he wants his 3 children to be joint surrogates, in case of his incapacitation. Contact information is being sought from his son, Jesus cell , for the remaining 2 sisters. Goals: Conservative. He wishes to return to a rehabilitation facility to spend time with his CODE STATUS: DNR SYMPTOMS: * Dyspnea - aspiration seen on speech therapy evaluation, has upper and mid lung pneumonia, likely aspirational in origin. Arterial blood gas showed both hypercapnia and hypoxia. He remains on supplemental oxygen, azithromycin, aztreonam and fluticasone/vilanterol inhaler. He is very unhappy with the thickened liquid diet and states he would prefer to eat as he pleases with the full knowledge that he will most certainly develop aspiration pneumonia and likely from it. Of the 3 options offered, artificial feeding tube, thickened liquid diet with speech therapy, and unrestricted diet with very high risk of aspiration, pneumonia and , he states he would choose the unrestricted diet option. * Cough - frequent cough noted with intake of thin and nectar thick liquids, suspicious for aspiration. Continue aggressive pulmonary toilet, continued speech therapy and cough suppressive medications if sleep is disturbed by cough. Patient is considering hospice, however wishes to consider overnight and will be reevaluated in the morning to answer any questions and provide support. Palliative care will continue to follow the patient during hospital course as condition evolves, to assist patient/decision-maker with understanding of their medical conditions, weighing benefits/burdens of treatment options, for clarification of goals of treatment. Additionally will assist with any symptoms of palliative concern Thank you for the opportunity to participate in the care of Mr. Membreno. Attestation To help prompt me to consider important information that might be impacting today's encounter and assessment, information from prior notes written by myself or my colleagues may have been "brought forward" into today's note. My signature on this note, however, is an attestation that I personally performed the exam, history, and/or decision-making noted today, and, unless otherwise indicated, the interactions with patient, family, and staff as well as the review of records all occurred today. I also attest that the listed assessment and stated plan reflect my best clinical judgment today based on the combination of historical information, prior notes, and today's exam/ interactions. When time spent is documented, it refers only to time spent today by the signer, or if indicated, combined time spent today by collaborating physician/nurse practitioner. Tracy Lynn Jan 24, 2017 10:57 am
--- NOTE | 2017-01-24 19:28 | HHI.PR ---
Subjective Remarks As per RN the patient has been having trouble eating his food Patient states he feels very thirsty Denies chest pain or shortness of breath Patient states he has poor appetite Hemoglobin is noted to be trending down. Objective Vitals Vital Signs Date Time Temp Pulse Resp B/P Pulse Ox O2 Delivery O2 Flow Rate FiO2 01/24/17 17:58 95 Nasal Cannula 2.00 01/24/17 16:03 96.2 76 20 108/54 95 01/24/17 12:05 96.8 80 20 120/68 99 01/24/17 10:36 96 Nasal Cannula 2.00 01/24/17 08:01 95.9 77 18 114/66 97 01/24/17 05:40 98.0 80 24 135/72 96 01/24/17 00:45 97.9 89 22 142/80 94 01/23/17 20:30 97.0 80 21 145/88 94 I/O 01/23/17 01/23/17 01/23/17 01/24/17 01/24/17 01/24/17 07:00 15:00 23:00 07:00 15:00 23:00 Intake Total 0 ml 850 ml 550 ml 480 ml Output Total 300 ml 300 ml 650 ml 350 ml Balance -300 ml 550 ml -100 ml 130 ml Intake Oral 0 ml 850 ml 550 ml 480 ml Output Urine Total 300 ml 350 ml Stool Total 300 ml 650 ml # Voids 3 # Bowel Movements 0 0 0 1 Result Diagram: 01/24/17 1024 01/24/17 1024 Imaging Last Impressions Abdomen/Pelvis CT 01/22/17 1937 Signed Impressions: Service Date/Time: Sunday, January 22, 2017 20:22 - CONCLUSION: 1. Very large amount of stool in the rectum. Nonobstructive pattern. No perceptible acute inflammatory changes. 2. Mild hydronephrosis of both kidneys, etiology uncertain. Faint stones are suspected of both kidneys but I don't see a ureteral calculus. 3. Aortoiliac atherosclerosis. 4. Small effusions and patchy infiltrate with interstitial thickening seen of both visualized lung bases. 5. Panchamber enlargement of the heart. Moo Frederick MD Head CT 01/22/17 1856 Signed Impressions: Service Date/Time: Sunday, January 22, 2017 20:19 - CONCLUSION: Negative noncontrast head CT. Moo Frederick MD Chest X-Ray 01/22/17 1670 Signed Impressions: Service Date/Time: Sunday, January 22, 2017 19:15 - CONCLUSION: Chronic pleural and parenchymal scarring. Acute consolidation in the right midlung. Moo Frederick MD Objective Remarks GENERAL: This is a pale, cachectic elderly male patient in no apparent distress. SKIN: No rashes. Cool and dry. excoriated wounds on bilateral ischial tuberosities - appx. nickel sized; bruising on bilateral upper extremities HEAD: Atraumatic. Normocephalic. EYES: No scleral icterus. No injection or drainage. ENT: Nose without bleeding, purulent drainage. NECK: Trachea midline. No JVD or lymphadenopathy. CARDIOVASCULAR: Regular rate and rhythm with systolic heart murmur; without gallops, or rubs. RESPIRATORY: Breath sounds diminished equal bilaterally. No wheezes, rales, or rhonchi. GASTROINTESTINAL: Abdomen soft, non-tender, nondistended. No guarding. : foul smelling urine MUSCULOSKELETAL: Extremities without clubbing, cyanosis, or edema. No calf tenderness. NEUROLOGICAL: Awake and alert and oriented. Normal speech. Medications and IVs Current Medications Medications (Trade) Dose Ordered Sig/Vania Route Start Time Stop Time Status Last Admin (NS Flush) 2 ml UNSCH PRN IV FLUSH 01/22/17 19:00 (NS Flush) 2 ml UNSCH PRN IV FLUSH 01/22/17 21:15 (NS Flush) 2 ml BID IV FLUSH 01/23/17 09:00 01/24/17 08:29 (Narcan Inj) 0.4 mg UNSCH PRN IV 01/22/17 21:15 (Mireille-Colace) 1 tab BID PO 01/23/17 09:00 01/24/17 08:31 (Milk Of Magnesia Liq) 30 ml Q12H PRN PO 01/22/17 21:15 (Senokot) 17.2 mg Q12H PRN PO 01/22/17 21:15 (Dulcolax Supp) 10 mg DAILY PRN RECTAL 01/22/17 21:15 Lactulose 30 ml 30 ml DAILY PRN PO 01/22/17 21:15 Aztreonam 2000 mg/ Sodium Chloride 100 ml @ 200 mls/hr Q6H IV 01/23/17 04:00 01/24/17 16:00 (Zithromax Inj/ NS 250 ml Inj) 250 ml @ 250 mls/hr HS IV 01/23/17 21:00 01/23/17 20:51 (Breo Ellipta 100-25 Inh) 1 puff DAILY INH 01/23/17 09:00 01/24/17 08:28 (Ferrous Sulfate) 325 mg DAILY PO 01/23/17 09:00 01/24/17 08:30 Urinary Catheter: No Vascular Central Line Catheter: No A/P Problem List: (1) Respiratory failure with hypoxia and hypercapnia ICD Code: J96.91 Status: Acute (2) Pneumonia ICD Code: J18.9 Status: Acute (3) UTI (urinary tract infection) ICD Code: N39.0 Status: Acute Assessment and Plan Assessment and Plan 89 y/o male transferred [facility] from [facility] for evaluation and management of AMS: Hypoxic and hypercapnic respiratory failure - acute consolidation right midlung - suspect HCAP. - Initially ABG showed an oxygen saturations of 84, pH of 7.32, CO2 retention with a PCO2 of 71 and hypoxemia with PO2 of 54. - Echo was done and it showes a moderately reduced systolic function with an EF of 55% and moderate pulmonary hypertension. - Patient was started in IV septum and azithromycin for pneumonia. - Continue supplemental oxygen to keep oxygen saturation more than 92% UTI suspected - Proteus Mirabilis isolated during prior admission on 12/13/16 - sensitive to Aztreonam and Cipro - treated with Cipro - Aztreonam should cover UTI as well as pneumonia -Urine cultures concurrent with contamination Bilateral decubitus on ischial tuberosities - consult wound care nurse - appreciate assistance with wound care - consult PT to prevent further debility and promote mobility. The patient will need rehabilitation on discharge. Anemia - Patient's hemoglobin and hematocrit have been trending downward over the last 2 months - Continue home iron supplementation -We'll check iron studies, the patient might benefit from IV iron - Type and screen -Transfuse for hemoglobin less than 7 or symptomatically anemia. -Hemoglobin continued to trend down. Today 7.3. Encephalopathy - Likely combination of metabolic encephalopathy secondary to pneumonia and UTI and CO2 narcosis. - Patient is awake and alert, now resolved. Hypernatremia -Due to dehydration and poor oral intake -We'll place on hypertonic saline in the form of D5 1/4 NS. -Continue to monitor BMP. Dysphagia -Elevated by speech therapy. Initially recommended mechanical soft diet and honey thickened liquids. -And states that the patient is having trouble swallowing the mechanical soft diet, will order a pured diet. Poor oral intake and severe protein calorie malnutrition -I will start the patient on Megace as an appetite stimulant. -We'll consult dietitian to optimize caloric intake. -Patient may need to have a calorie count the pending on how he does in the following days. DVT prophylaxis - SCDs . Palliative care following. Patient was made DO NOT RESUSCITATE. Code Status DNR - [place] DNR on chart dated 12/17/16 and signed by both the patient and Dr. Patton of the [facility] [place] palliative care service. . Discharge Planning Continue to monitor in the medical floor. Patient hypernatremic with poor oral intake. Problem Qualifiers (1) Pneumonia: Qualified Code: J18.1 - Pneumonia of right middle lobe due to infectious organism (2) UTI (urinary tract infection): Daniel Denton MD Jan 24, 2017 19:28
[2017-01-24] MEDS: D5-1/4 NS + KCL 20 MEQ INJ 1,000 ML IV SCH (20:15)
[2017-01-24] MEDS: MEGESTROL ACETATE SUSP 400 MG/10 ML CUP PO SCH (21:02)
[2017-01-24] MEDS: AZITHROMYCIN INJ 500 MG in SODIUM CHLOR 0.9% 250 ML INJ 250 ML IV SCH (21:02)
[2017-01-25 01:00] VITALS: BP 123/59; PULSE 78; RESP 18; TEMP 97; O2SAT 100
[2017-01-25 04:00] VITALS: BP 138/67; PULSE 76; RESP 20; TEMP 97; O2SAT 98
[2017-01-25] MEDS: AZTREONAM INJ 2,000 MG in SODIUM CHLORIDE 0.9% INJ 100 ML IV SCH ×2 (05:02→11:32)
[2017-01-25 08:09] VITALS: BP 128/69; PULSE 76; RESP 16; TEMP 95.1; O2SAT 97
[2017-01-25] MEDS: MEGESTROL ACETATE SUSP 400 MG/10 ML CUP PO SCH (09:00)
[2017-01-25] MEDS: SODIUM CHLORIDE 0.9% FLUSH 10 ML FLUSH IV FLUSH SCH (09:00)
[2017-01-25] MEDS: DOCUSATE SODIUM 50 MG/SENNA 8.6 MG TAB PO SCH (09:00)
[2017-01-25] MEDS: FLUTICASONE 100 MCG/VILANTEROL 25 MCG INHALER INH SCH (09:00)
[2017-01-25] MEDS: FERROUS SULFATE 325 MG (65 MG ELEMENTAL IRON) TAB PO SCH (09:00)
[2017-01-25 11:22] LABS: BASOPHIL % 0.6 % (0.0-2.0); EOSINOPHIL # 0.3 TH/MM3 (0-0.4); EOSINOPHIL % 4.8 % (0.0-4.0); HEMATOCRIT 23.9 % (39.0-51.0); HEMO FLAGS DIFF FINAL; LYMPH % 7.6 % (9.0-44.0); LYMPHOCYTE # 0.5 TH/MM3 (1.0-4.8); MEAN CELL VOLUME 100.7 FL (80.0-100.0); MEAN CORPUSCULAR HEMOGLOBIN 31.8 PG (27.0-34.0); MEAN CORPUSCULAR HGB CONC 31.6 % (32.0-36.0); MONO % 8.2 % (0.0-8.0); NEUT % 78.8 % (16.0-70.0); PLATELET COUNT 158 TH/MM3 (150-450); RED BLOOD COUNT 2.37 MIL/MM3 (4.50-5.90); RED CELL DISTRIBUTION WIDTH 16.2 % (11.6-17.2); WHITE BLOOD COUNT 6.4 TH/MM3 (4.0-11.0)
[2017-01-25] MEDS: D5-1/4 NS + KCL 20 MEQ INJ 1,000 ML IV SCH (11:32)
[2017-01-25 11:42] LABS: ALT (GPT) 29 U/L (12-78); ANION GAP 4 MEQ/L (5-15); BICARBONATE 34.9 MEQ/L (21.0-32.0); BLOOD UREA NITROGEN 33 MG/DL (7-18); CHLORIDE 106 MEQ/L (98-107); MAGNESIUM 2.1 MG/DL (1.5-2.5); POTASSIUM 3.7 MEQ/L (3.5-5.1); SODIUM (NA) 145 MEQ/L (136-145)
[2017-01-25 11:43] LABS: AST (GOT) 29 U/L (15-37); GLOMERULAR FILTRATION RATE 76 ML/MIN (>89)
[2017-01-25 11:45] LABS: ALKALINE PHOSPHATASE 81 U/L (45-117); TOTAL BILIRUBIN ADULT 0.3 MG/DL (0.2-1.0)
--- NOTE | 2017-01-25 11:56 | HHI.HCPN ---
Reason for visit a. To assist with evaluation and management of symptoms including: Dyspnea , cough b. To assist medical decision maker(s) with: better understanding of current medical conditions; weighing benefits/burdens of medical treatment options; making medical treatment decisions. Subjective/Interval History 89-year-old male admitted with aspiration pneumonia, altered mental status, recurrent urinary tract infection. Evaluated by speech therapy with signs and symptoms of aspiration and placed on honey thick liquids and pured diet. Patient states "I don't like this thickened stuff, the thing is I won't drink it"and "I been drinking water for 7 years, I don't want this stuff, they tell me I can get pneumonia". Laboratory studies white blood cells 6.4, hemoglobin 7.5, hematocrit 23.9, platelets 158, sodium 145, potassium 3.7, BUN 33, creatinine 0.94, albumin 1.9. Urine culture shows mixed gram-positive toshia, probable contaminants. Blood pressure 128/69, heart rate 76, respiratory rate 16, oxygen saturation 97% on 2 L nasal cannula, afebrile. Patient is refusing to eat pured diet with thickened liquids. He states it tastes terrible. I did explain to him the possibility of artificial feeding tube which he rejected. Of note he rejected the same option in discussion at last admission indicating consistency of his decisions. He stated he wanted to eat regular food. I did advise him that this was his second episode of likely aspiration pneumonia and that it was nearly certain that he would continue to aspirate, developed pneumonia and likely . He stated of the 3 options he liked that option best. 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 He states it would be his preference to enroll in hospice, eat what ever he liked, regardless of the risk of pneumonia, and be with his . . Advance Directives Living Will: Never completed Health Care Surrogate: Never completed Durable Power of Drawing In Machine Tender Helper: Never completed Objective Vital Signs Date Time Temp Pulse Resp B/P Pulse Ox O2 Delivery O2 Flow Rate FiO2 01/25/17 08:09 95.1 76 16 128/69 97 01/25/17 04:00 97.0 76 20 138/67 98 01/25/17 01:00 97.0 78 18 123/59 100 01/24/17 20:00 95.2 75 18 124/76 100 01/24/17 17:58 95 Nasal Cannula 2.00 01/24/17 16:03 96.2 76 20 108/54 95 01/24/17 12:05 96.8 80 20 120/68 99 Intake & Output 01/25/17 01/25/17 07:00 19:00 Intake Total 600 ml Output Total 700 ml 400 ml Balance -100 ml -400 ml Intake Oral 120 ml IV Total 480 ml Output Urine Total 700 ml 400 ml # Bowel Movements 1 1 Physical Exam CONSTITUTIONAL/GENERAL: This is a very thin, cachectic patient, in no apparent distress. TUBES/LINES/DRAINS: PIV right forearm SKIN: No jaundice, rashes, or lesions. No wounds seen anteriorly. Skin temperature appropriate. Not diaphoretic. HEAD: Atraumatic. Normocephalic. EYES: Pupils equal and round and reactive. Extraocular motions intact. No scleral icterus. No injection or drainage. Fundi not examined. ENT: Hard of hearing, mild speech impediment. NECK: Trachea midline. Supple, nontender. No palpable thyroid enlargement or nodularity. CARDIOVASCULAR: Regular rate and rhythm without murmurs, gallops, or rubs. No JVD. Peripheral pulses symmetric. RESPIRATORY/CHEST: Cachectic, old sternal wires status post CABG visible through the skin, lungs clear diminished. GASTROINTESTINAL: Abdomen soft, non-tender, nondistended. No hepato-splenomegaly , or palpable masses. No guarding. Bowel sounds present. GENITOURINARY: Urostomy. MUSCULOSKELETAL: Extremities without clubbing, cyanosis, or edema. No joint tenderness or effusion noted. No calf tenderness. No mottling or clubbing. NEUROLOGICAL: Awake and alert. Oriented 4. Motor and sensory grossly within normal limits. Follows commands. Moves all extremities. PSYCHIATRIC: No obvious anxiety/depression. no apparent hallucinations or other psychotic thought process. Diagnostic Tests Laboratory Laboratory Tests Test 01/22/17 01/22/17 01/22/17 01/22/17 19:10 19:16 19:21 21:17 White Blood Count 8.3 TH/MM3 (4.0-11.0) Red Blood Count 2.48 MIL/MM3 (4.50-5.90) Hemoglobin 8.0 GM/DL (13.0-17.0) Hematocrit 24.6 % (39.0-51.0) Mean Corpuscular Volume 99.1 FL (80.0-100.0) Mean Corpuscular Hemoglobin 32.2 PG (27.0-34.0) Mean Corpuscular Hemoglobin 32.5 % Concent (32.0-36.0) Red Cell Distribution Width 15.9 % (11.6-17.2) Platelet Count 181 TH/MM3 (150-450) Mean Platelet Volume 10.8 FL (7.0-11.0) Neutrophils (%) (Auto) 85.1 % (16.0-70.0) Lymphocytes (%) (Auto) 5.5 % (9.0-44.0) Monocytes (%) (Auto) 8.2 % (0.0-8.0) Eosinophils (%) (Auto) 0.8 % (0.0-4.0) Basophils (%) (Auto) 0.4 % (0.0-2.0) Neutrophils # (Auto) 7.1 TH/MM3 (1.8-7.7) Lymphocytes # (Auto) 0.5 TH/MM3 (1.0-4.8) Monocytes # (Auto) 0.7 TH/MM3 (0-0.9) Eosinophils # (Auto) 0.1 TH/MM3 (0-0.4) Basophils # (Auto) 0.0 TH/MM3 (0-0.2) CBC Comment DIFF FINAL Differential Comment Prothrombin Time 12.1 SEC (9.8-11.6) Prothromb Time International 1.1 RATIO Ratio Activated Partial 31.1 SEC Thromboplast Time (24.3-30.1) Sodium Level 139 MEQ/L (136-145) Potassium Level 3.7 MEQ/L (3.5-5.1) Chloride Level 99 MEQ/L (98-107) Carbon Dioxide Level 36.9 MEQ/L (21.0-32.0) Anion Gap 3 MEQ/L (5-15) Blood Urea Nitrogen 30 MG/DL (7-18) Creatinine 1.07 MG/DL (0.60-1.30) Estimat Glomerular Filtration 65 ML/MIN (>89) Rate Random Glucose 93 MG/DL (74-106) Calcium Level 9.4 MG/DL (8.5-10.1) Total Bilirubin 0.3 MG/DL (0.2-1.0) Aspartate Amino Transf 52 U/L (15-37) (AST/SGOT) Alanine Aminotransferase 41 U/L (12-78) (ALT/SGPT) Alkaline Phosphatase 91 U/L (45-117) Total Creatine Kinase 73 U/L (39-308) Troponin I 0.04 NG/ML (0.02-0.05) Total Protein 6.8 GM/DL (6.4-8.2) Albumin 1.8 GM/DL (3.4-5.0) Lactic Acid Level 0.8 mmol/L (0.4-2.0) Urine Color YELLOW (YELLW/STRAW) Urine Turbidity HAZY (CLEAR) Urine pH 8.0 (5.0-8.5) Urine Specific [place] 1.013 (1.002-1.035) Urine Protein 30 mg/dL (NEG-TRACE) Urine Glucose (UA) NEG mg/dL (NEG) Urine Ketones NEG mg/dL (NEG) Urine Occult Blood SMALL (NEG) Urine Nitrite NEG (NEG) Urine Bilirubin NEG (NEG) Urine Urobilinogen LESS THAN 2.0 MG/DL (LESS THAN 2.0) Urine Leukocyte Esterase TRACE (NEG) Urine RBC 8 /hpf (0-3) Urine WBC 15 /hpf (0-5) Urine Bacteria FEW /hpf (NONE) Urine Hyaline Casts 1 /lpf (RARE) Urine Mucus FEW /lpf (OCC) Microscopic Urinalysis Comment CATH-CULTURE IND Blood Gas Puncture Site RT RADIAL Blood Gas Patient Temperature 98.6 Blood Gas HCO3 35 mmol/L (22-26) Blood Gas Base Excess 8.9 mmol/L (-2-2) Blood Gas Oxygen Saturation 84 % (90-100) Arterial Blood pH 7.32 (7.380-7.420) Arterial Blood Partial 71 mmHg (38-42) Pressure CO2 Arterial Blood Partial 54 mmHG Pressure O2 (61-120) Arterial Blood Oxygen Content 8.2 Vol % (12.0-20.0) Arterial Blood 1.1 % (0-4) Carboxyhemoglobin Arterial Blood Methemoglobin 0.9 % (0-2) Blood Gas Hemoglobin 6.9 G/DL (12.0-16.0) Oxygen Delivery Device NASAL CANNULA Blood Gas Liter Flow 4 L/M Test 01/22/17 01/23/17 01/24/17 23:52 07:31 10:24 B-Type Natriuretic Peptide 994 PG/ML (0-100) Blood Type O POSITIVE Antibody Screen NEGATIVE White Blood Count 7.6 TH/MM3 6.8 TH/MM3 (4.0-11.0) (4.0-11.0) Red Blood Count 2.49 MIL/MM3 2.34 MIL/MM3 (4.50-5.90) (4.50-5.90) Hemoglobin 7.8 GM/DL 7.3 GM/DL (13.0-17.0) (13.0-17.0) Hematocrit 25.1 % 23.3 % (39.0-51.0) (39.0-51.0) Mean Corpuscular Volume 100.8 FL 99.5 FL (80.0-100.0) (80.0-100.0) Mean Corpuscular Hemoglobin 31.2 PG 31.4 PG (27.0-34.0) (27.0-34.0) Mean Corpuscular Hemoglobin 30.9 % 31.5 % Concent (32.0-36.0) (32.0-36.0) Red Cell Distribution Width 16.0 % 16.0 % (11.6-17.2) (11.6-17.2) Platelet Count 163 TH/MM3 178 TH/MM3 (150-450) (150-450) Mean Platelet Volume 10.4 FL 10.8 FL (7.0-11.0) (7.0-11.0) Neutrophils (%) (Auto) 83.3 % 74.6 % (16.0-70.0) (16.0-70.0) Lymphocytes (%) (Auto) 6.0 % 11.9 % (9.0-44.0) (9.0-44.0) Monocytes (%) (Auto) 7.0 % (0.0-8.0) 9.1 % (0.0-8.0) Eosinophils (%) (Auto) 3.0 % (0.0-4.0) 3.9 % (0.0-4.0) Basophils (%) (Auto) 0.7 % (0.0-2.0) 0.5 % (0.0-2.0) Neutrophils # (Auto) 6.3 TH/MM3 5.1 TH/MM3 (1.8-7.7) (1.8-7.7) Lymphocytes # (Auto) 0.5 TH/MM3 0.8 TH/MM3 (1.0-4.8) (1.0-4.8) Monocytes # (Auto) 0.5 TH/MM3 0.6 TH/MM3 (0-0.9) (0-0.9) Eosinophils # (Auto) 0.2 TH/MM3 0.3 TH/MM3 (0-0.4) (0-0.4) Basophils # (Auto) 0.1 TH/MM3 0.0 TH/MM3 (0-0.2) (0-0.2) CBC Comment DIFF FINAL DIFF FINAL Differential Comment Sodium Level 145 MEQ/L 148 MEQ/L (136-145) (136-145) Potassium Level 3.7 MEQ/L 3.9 MEQ/L (3.5-5.1) (3.5-5.1) Chloride Level 105 MEQ/L 109 MEQ/L (98-107) (98-107) Carbon Dioxide Level 33.1 MEQ/L 38.6 MEQ/L (21.0-32.0) (21.0-32.0) Anion Gap 7 MEQ/L (5-15) 0 MEQ/L (5-15) Blood Urea Nitrogen 29 MG/DL (7-18) 38 MG/DL (7-18) Creatinine 0.89 MG/DL 1.26 MG/DL (0.60-1.30) (0.60-1.30) Estimat Glomerular Filtration 80 ML/MIN (>89) 54 ML/MIN (>89) Rate Random Glucose 68 MG/DL 122 MG/DL (74-106) (74-106) Calcium Level 9.3 MG/DL 9.4 MG/DL (8.5-10.1) (8.5-10.1) Total Bilirubin 0.3 MG/DL (0.2-1.0) Aspartate Amino Transf 32 U/L (15-37) (AST/SGOT) Alanine Aminotransferase 30 U/L (12-78) (ALT/SGPT) Alkaline Phosphatase 84 U/L (45-117) Total Protein 6.9 GM/DL (6.4-8.2) Albumin 1.8 GM/DL (3.4-5.0) Result Diagram: 01/24/17 1024 01/24/17 1024 Microbiology Microbiology Date/Time Procedure Status Source Growth 01/22/17 19:21 Urine Culture - Final Complete Urine Catheterized Urine 50-100,000 CFU/ML MIXED GRAM POSITIVE... Imaging Last Impressions Abdomen/Pelvis CT 01/22/17 193 Signed Impressions: Service Date/Time: Sunday, January 22, 2017 20:22 - CONCLUSION: 1. Very large amount of stool in the rectum. Nonobstructive pattern. No perceptible acute inflammatory changes. 2. Mild hydronephrosis of both kidneys, etiology uncertain. Faint stones are suspected of both kidneys but I don't see a ureteral calculus. 3. Aortoiliac atherosclerosis. 4. Small effusions and patchy infiltrate with interstitial thickening seen of both visualized lung bases. 5. Panchamber enlargement of the heart. Moo Frederick MD Head CT 01/22/171855 Signed Impressions: Service Date/Time: Sunday, January 22, 2017 20:19 - CONCLUSION: Negative noncontrast head CT. Moo Frederick MD Chest X-Ray 01/22/171855 Signed Impressions: Service Date/Time: Sunday, January 22, 2017 19:15 - CONCLUSION: Chronic pleural and parenchymal scarring. Acute consolidation in the right midlung. Moo Frederick MD Assessment and Plan Disease Oriented Problem List: (1) COPD (chronic obstructive pulmonary disease) (2) Total self-care deficit (3) Malnutrition (4) Pneumonia (5) Respiratory failure with hypoxia and hypercapnia (6) Weakness (7) Cough (8) UTI (urinary tract infection) Symptom Scale: (1) Cough 0-10 Scale: Unable to quantify (2) Dyspnea and respiratory abnormalities 0-10 Scale: Unable to quantify Pertinent Non-Medical Issues Psychosocial:his is an elderly white male thin and frail caregiver for his born in [place] and moved to [place] after he was . 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 He is a of the [employer] for 7 years and maybe for 1 year. He has 3 children and 3 remaining living siblings. He has not created a healthcare surrogate form but wishes his 3 children to be his surrogates. We have reached up to the son Jesus jasso contact information we do have and are awaiting a return phone call to establish contact. He did verbally state he requests no CPR or intubation and that status was entered into the record in accordance with his wishes. Spiritual: No spiritual affiliation Legal: He wishes his 3 children to be his joint healthcare surrogates which would be consistent with [place] statutes. He is a DO NOT RESUSCITATE status. Ethical issues impacting care: Important Contacts Son - Jesus Membreno . Daughter - Geeta Margaret ([place]) Daughter - Kimmy Membreno ([place]) Neighbor - Sabrina Brito Prognosis This is an elderly, cachectic male who has been steadily losing weight since his bypass surgery in 2002. He has multiple comorbidities including coronary artery disease, bladder cancer and that recurrent urinary tract infections. He is developing recurrent aspiration pneumonia with overt signs and symptoms of aspiration per speech therapy evaluation. He is now developing skin wounds on bony prominences and requires full-time care at long term facilities. His prognosis is poor and will likely have recurrent hospitalizations. Code Status: No Code Plan PLAN: Legal decision maker: Patient is capable of making assisted decisions at this time, alert and oriented today. He states he wants his 3 children to be joint surrogates, in case of his incapacitation. Contact information is being sought from his son, Jeuss cell , for the remaining 2 sisters. Goals: Conservative. He wishes to return to a rehabilitation facility to spend time with his CODE STATUS: DNR SYMPTOMS: * Dyspnea - aspiration seen on speech therapy evaluation, has upper and mid lung pneumonia, likely aspirational in origin. Arterial blood gas showed both hypercapnia and hypoxia. He remains on supplemental oxygen, azithromycin, aztreonam and fluticasone/vilanterol inhaler. He is very unhappy with the thickened liquid diet and states he would prefer to eat as he pleases with the full knowledge that he will most certainly develop aspiration pneumonia and likely from it. Of the 3 options offered, artificial feeding tube, thickened liquid diet with speech therapy, and unrestricted diet with very high risk of aspiration, pneumonia and , he states he would choose the unrestricted diet option. * Cough - frequent cough noted with intake of thin and nectar thick liquids, suspicious for aspiration. Continue aggressive pulmonary toilet, continued speech therapy and cough suppressive medications if sleep is disturbed by cough. Patient has requested a hospice consultation from hospitalist, Dr. Bazan. Hospice consult is pending. Palliative care will continue to follow the patient during hospital course as condition evolves, to assist patient/decision-maker with understanding of their medical conditions, weighing benefits/burdens of treatment options, for clarification of goals of treatment. Additionally will assist with any symptoms of palliative concern Attestation To help prompt me to consider important information that might be impacting today's encounter and assessment, information from prior notes written by myself or my colleagues may have been "brought forward" into today's note. My signature on this note, however, is an attestation that I personally performed the exam, history, and/or decision-making noted today, and, unless otherwise indicated, the interactions with patient, family, and staff as well as the review of records all occurred today. I also attest that the listed assessment and stated plan reflect my best clinical judgment today based on the combination of historical information, prior notes, and today's exam/ interactions. When time spent is documented, it refers only to time spent today by the signer, or if indicated, combined time spent today by collaborating physician/nurse practitioner. Tracy Lynn Jan 25, 2017 11:56 am
[2017-01-25 12:03] VITALS: BP 113/60; PULSE 71; RESP 16; TEMP 95.6; O2SAT 97
--- NOTE | 2017-01-25 15:49 | HHI.DS ---
Discharge Summary Admission Date Jan 22, 2017 at 21:11 Discharge Date: Jan 25, 2017 Admitting Diagnosis Altered Mental Status, Pneumonia (1) Respiratory failure with hypoxia and hypercapnia ICD Code: J96.91 Diagnosis: Principal (2) Pneumonia ICD Code: J18.9 Diagnosis: Secondary (3) UTI (urinary tract infection) ICD Code: N39.0 Diagnosis: Principal (4) Malnutrition ICD Code: E46 Diagnosis: Principal (5) Dysphagia ICD Code: R13.10 Diagnosis: Principal Procedures none Brief History - From Admission Patient states that he is here from [facility] for pneumonia; "I was confused". States he had shortness of breath but no cough over the past few days. Unsure if he's had dizziness. He's on supplemental oxygen at facility "off and on". No liver or kidney problems. No DVT or PE, CVA, seizures, thyroid problems. Reports 100 pound weight loss in the past 8 months. Denies n/v/d, black/red stool, abdominal pain, chest pain. States he has "weakness" and is unable to ambulate for about two weeks. Reports a regular diet Reports pain on heel. Urostomy due to bladder cancer - placed in 2000; did not require chemo or radiation per patient. Hypertension, CAD s/p CABG 2002 and stents prior to bypass Denies atrial fibrillation Reports history of "spots on lungs" - has not followed up - chest x-ray reviewed and shows chronic pleural and parenchymal scarring with acute consolidation in right mid lung. . CBC/BMP: 01/25/17 1000 01/25/17 1000 Significant Findings Laboratory Tests Test 01/22/17 01/22/17 01/22/17 01/22/17 19:10 19:21 21:17 23:52 Red Blood Count 2.48 MIL/MM3 (4.50-5.90) Hemoglobin 8.0 GM/DL (13.0-17.0) Hematocrit 24.6 % (39.0-51.0) Neutrophils (%) (Auto) 85.1 % (16.0-70.0) Lymphocytes (%) (Auto) 5.5 % (9.0-44.0) Monocytes (%) (Auto) 8.2 % (0.0-8.0) Lymphocytes # (Auto) 0.5 TH/MM3 (1.0-4.8) Prothrombin Time 12.1 SEC (9.8-11.6) Activated Partial 31.1 SEC Thromboplast Time (24.3-30.1) Carbon Dioxide Level 36.9 MEQ/L (21.0-32.0) Anion Gap 3 MEQ/L (5-15) Blood Urea Nitrogen 30 MG/DL (7-18) Estimat Glomerular Filtration 65 ML/MIN (>89) Rate Aspartate Amino Transf 52 U/L (15-37) (AST/SGOT) Albumin 1.8 GM/DL (3.4-5.0) Urine Turbidity HAZY (CLEAR) Urine Protein 30 mg/dL (NEG-TRACE) Urine Occult Blood SMALL (NEG) Urine Leukocyte Esterase TRACE (NEG) Urine RBC 8 /hpf (0-3) Urine WBC 15 /hpf (0-5) Urine Bacteria FEW /hpf (NONE) Urine Mucus FEW /lpf (OCC) Blood Gas HCO3 35 mmol/L (22-26) Blood Gas Base Excess 8.9 mmol/L (-2-2) Blood Gas Oxygen Saturation 84 % (90-100) Arterial Blood pH 7.32 (7.380-7.420) Arterial Blood Partial 71 mmHg (38-42) Pressure CO2 Arterial Blood Partial 54 mmHG Pressure O2 (61-120) Arterial Blood Oxygen Content 8.2 Vol % (12.0-20.0) Blood Gas Hemoglobin 6.9 G/DL (12.0-16.0) B-Type Natriuretic Peptide 994 PG/ML (0-100) Test 01/23/17 01/24/17 01/25/17 07:31 10:24 10:00 Red Blood Count 2.49 MIL/MM3 2.34 MIL/MM3 2.37 MIL/MM3 (4.50-5.90) (4.50-5.90) (4.50-5.90) Hemoglobin 7.8 GM/DL 7.3 GM/DL 7.5 GM/DL (13.0-17.0) (13.0-17.0) (13.0-17.0) Hematocrit 25.1 % 23.3 % 23.9 % (39.0-51.0) (39.0-51.0) (39.0-51.0) Mean Corpuscular Volume 100.8 FL 100.7 FL (80.0-100.0) (80.0-100.0) Mean Corpuscular Hemoglobin 30.9 % 31.5 % 31.6 % Concent (32.0-36.0) (32.0-36.0) (32.0-36.0) Neutrophils (%) (Auto) 83.3 % 74.6 % 78.8 % (16.0-70.0) (16.0-70.0) (16.0-70.0) Lymphocytes (%) (Auto) 6.0 % 7.6 % (9.0-44.0) (9.0-44.0) Lymphocytes # (Auto) 0.5 TH/MM3 0.8 TH/MM3 0.5 TH/MM3 (1.0-4.8) (1.0-4.8) (1.0-4.8) Carbon Dioxide Level 33.1 MEQ/L 38.6 MEQ/L 34.9 MEQ/L (21.0-32.0) (21.0-32.0) (21.0-32.0) Blood Urea Nitrogen 29 MG/DL (7-18) 38 MG/DL (7-18) 33 MG/DL (7-18) Estimat Glomerular Filtration 80 ML/MIN (>89) 54 ML/MIN (>89) 76 ML/MIN (>89) Rate Random Glucose 68 MG/DL 122 MG/DL (74-106) (74-106) Monocytes (%) (Auto) 9.1 % (0.0-8.0) 8.2 % (0.0-8.0) Sodium Level 148 MEQ/L (136-145) Chloride Level 109 MEQ/L (98-107) Anion Gap 0 MEQ/L (5-15) 4 MEQ/L (5-15) Albumin 1.8 GM/DL 1.9 GM/DL (3.4-5.0) (3.4-5.0) Eosinophils (%) (Auto) 4.8 % (0.0-4.0) Phosphorus Level 2.4 MG/DL (2.5-4.9) Imaging Last Impressions Abdomen/Pelvis CT 01/22/171936 Signed Impressions: Service Date/Time: Sunday, January 22, 2017 20:22 - CONCLUSION: 1. Very large amount of stool in the rectum. Nonobstructive pattern. No perceptible acute inflammatory changes. 2. Mild hydronephrosis of both kidneys, etiology uncertain. Faint stones are suspected of both kidneys but I don't see a ureteral calculus. 3. Aortoiliac atherosclerosis. 4. Small effusions and patchy infiltrate with interstitial thickening seen of both visualized lung bases. 5. Panchamber enlargement of the heart. Moo Frederick MD Head CT 01/22/171855 Signed Impressions: Service Date/Time: Sunday, January 22, 2017 20:19 - CONCLUSION: Negative noncontrast head CT. Moo Frederick MD Chest X-Ray 01/22/171855 Signed Impressions: Service Date/Time: Sunday, January 22, 2017 19:15 - CONCLUSION: Chronic pleural and parenchymal scarring. Acute consolidation in the right midlung. Moo Frederick MD PE at Discharge GENERAL: This is a pale, cachectic elderly male patient in no apparent distress. SKIN: No rashes. Cool and dry. excoriated wounds on bilateral ischial tuberosities - appx. nickel sized; bruising on bilateral upper extremities HEAD: Atraumatic. Normocephalic. EYES: No scleral icterus. No injection or drainage. ENT: Nose without bleeding, purulent drainage. NECK: Trachea midline. No JVD or lymphadenopathy. CARDIOVASCULAR: Regular rate and rhythm with systolic heart murmur; without gallops, or rubs. RESPIRATORY: Breath sounds diminished equal bilaterally. No wheezes, rales, or rhonchi. GASTROINTESTINAL: Abdomen soft, non-tender, nondistended. No guarding. : foul smelling urine MUSCULOSKELETAL: Extremities without clubbing, cyanosis, or edema. No calf tenderness. NEUROLOGICAL: Awake and alert and oriented. Normal speech. Pt update on day of discharge Patient in bed,. says he would like to go to hospice. Says his is at hospice. Sayus he would like to drink water and eat normal food. He does understands the risk of haivng pneumonia. He denies any pain. He complaints of sob. No fever or chills. Seen by hospice, patient is DC to hospice. Hospital Course 89 y/o male transferred here from [facility] for evaluation and management of AMS: Hypoxic and hypercapnic respiratory failure - acute consolidation right midlung - suspect HCAP. - Initially ABG showed an oxygen saturations of 84, pH of 7.32, CO2 retention with a PCO2 of 71 and hypoxemia with PO2 of 54. - Echo was done and it showes a moderately reduced systolic function with an EF of 55% and moderate pulmonary hypertension. - Patient was started in IV septum and azithromycin for pneumonia. - Continue supplemental oxygen to keep oxygen saturation more than 92% UTI suspected - Proteus Mirabilis isolated during prior admission on 12/13/16 - sensitive to Aztreonam and Cipro - treated with Cipro - Aztreonam should cover UTI as well as pneumonia -Urine cultures concurrent with contamination Bilateral decubitus on ischial tuberosities - consult wound care nurse - appreciate assistance with wound care - consult PT to prevent further debility and promote mobility. The patient will need rehabilitation on discharge. Anemia - Patient's hemoglobin and hematocrit have been trending downward over the last 2 months - Continue home iron supplementation -We'll check iron studies, the patient might benefit from IV iron - Type and screen -Transfuse for hemoglobin less than 7 or symptomatically anemia. -Hemoglobin continued to trend down. Today 7.3. Encephalopathy - Likely combination of metabolic encephalopathy secondary to pneumonia and UTI and CO2 narcosis. - Patient is awake and alert, now resolved. Hypernatremia -Due to dehydration and poor oral intake -We'll place on hypertonic saline in the form of D5 1/4 NS. -Continue to monitor BMP. Dysphagia -Elevated by speech therapy. Initially recommended mechanical soft diet and honey thickened liquids. -And states that the patient is having trouble swallowing the mechanical soft diet, will order a pured diet. Poor oral intake and severe protein calorie malnutrition -I will start the patient on Megace as an appetite stimulant. -We'll consult dietitian to optimize caloric intake. -Patient may need to have a calorie count the pending on how he does in the following days. DVT prophylaxis - SCDs . Palliative care following. Patient was made DO NOT RESUSCITATE. Code Status DNR - [place] DNR on chart dated 12/17/16 and signed by both the patient and Dr. Patton of the [facility] palliative care service. . Discharge Planning Patient hypernatremic with poor oral intake.Patient says he would like to talk with hospice , says his is at hospice and he is considering . Discussed with hospice. Patient is accepted by hospice. DC patient to hospice. Pt Condition on Discharge: Stable Discharge Disposition: Hospice/Med Facility Discharge Time: > 30 minutes Discharge Instructions DIET: Follow Instructions for: As Tolerated, No Restrictions Speech Therapy-Diet Recommends: Honey Thickened Liquids, Pureed Additional Diet Instructions: Pureed , honey thick Activities you can perform: Regular-No Restrictions Continued Medications: Aspirin DR (Aspirin Adult Low Strength) 81 Mg Tabdr 162 MG PO DAILY TAB Ferrous Sulfate DR (Ferrous Sulfate DR) 324 Mg Tabdr 324 MG PO DAILY Nutritional Supplement #30 Ref 0 TAB Fluticasone-Vilanterol Inh (Breo Ellipta Inh) 100-25 Mcg/Act Inh 1 PUFF INH DAILY Use daily at the same time. #1 Ref 0 INHALER Ipratropium-Albuterol Neb (Duoneb) 0.5-2.5 Mg/3 Ml Neb 1 NEBULE INH Q6HR NEB Breathing Treatment #120 Ref 0 NEBULE Mirtazapine (Remeron) 15 Mg Tab 7.5 MG PO HS Depression Control #15 Ref 0 TAB Multiple Vitamin (Tab-A-Maria G) 1 Tab Tab Stephany Bazan MD Jan 25, 2017 15:49
== END 2017-01-25 16:11 | disposition hospice, inpatient (51) | DRG 190 ==
LOC: NEPE 18:34 → NEDA 21:11 → N05B 01-23 00:22
PROVIDERS: ADMIT Hospitalist; ATTEND Hospitalist
DX: J44.0 Chronic obstructive pulmonary disease with (acute) lower respiratory infection (principal); J69.0 Pneumonitis due to inhalation of food and vomit; E43 Unspecified severe protein-calorie malnutrition; G93.41 Metabolic encephalopathy; E87.0 Hyperosmolality and hypernatremia; L89.312 Pressure ulcer of right buttock, stage 2; J96.10 Chronic respiratory failure, unspecified whether with hypoxia or hypercapnia; L89.323 Pressure ulcer of left buttock, stage 3; N13.30 Unspecified hydronephrosis; N39.0 Urinary tract infection, site not specified; R64 Cachexia; Z68.1 Body mass index [BMI] 19.9 or less, adult; I27.2 Other secondary pulmonary hypertension; E86.0 Dehydration; D64.9 Anemia, unspecified; R13.10 Dysphagia, unspecified; I25.10 Atherosclerotic heart disease of native coronary artery without angina pectoris; Z99.81 Dependence on supplemental oxygen; Z93.6 Other artificial openings of urinary tract status; Z95.1 Presence of aortocoronary bypass graft; Z85.51 Personal history of malignant neoplasm of bladder; Z87.891 Personal history of nicotine dependence; Z95.5 Presence of coronary angioplasty implant and graft; Z66 Do not resuscitate; Z51.5 Encounter for palliative care
CPT/HCPCS: 36600; 70450; 71010; 74176; 76937; 80048; 80053; 81001; 82550; 82805; 83605; 83735; 83880; 84100; 84484; 85025; 85610; 85730; 86850; 86900; 86901; 87086; 93005; 93306; 96361; 96365; 96368; J0456; J1940; J3480; J7030; J7050